=== PATIENT | male | born 1950 | race Caucasian/White ===

== ENCOUNTER 2017-09-03 11:19 | Emergency (ER) | payer BC ==
[~2017-09-03] VITALS: Ht 170.2 cm; Wt 105.1 kg
[~2017-09-03 11:19] MED LIST: ABL/15 PO; BENZ-89 PO; DIVA500T3 PO; DPKSR/500 PO; KLN1X PO; LEVO75TA5 PO; ZLF/100 PO
[2017-09-03 11:20] VITALS: TEMP 36.6; O2SAT 93; Ht 170.2 cm; Wt 105.1 kg
[2017-09-03] MEDS ORDERED: CHOL1000 PO (11:42)
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
[2017-09-03] MEDS ORDERED: OXYC-737 PO (12:09)
--- NOTE | 2017-09-03 12:14 | EMERGENCY ROOM VISIT NOTE ---
ED Visit Note First contact with patient: 12:13 The patient was seen and examined with Maria Dolores Painting PA-C. I agree with the history, physical and findings. Please see the note for disposition and details.
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
--- NOTE | 2017-09-03 12:44 | DIAGNOSTIC IMAGING REPORT ---
CHEST ONE VIEW PORTABLE CLINICAL HISTORY: Hypoxia COMPARISON STUDY: 05/02/2013 FINDINGS: The heart is the upper limits of normal in size. There is no failure. There is no lobar consolidation. There are no pleural effusions. Slightly prominent right basilar markings are likely atelectatic.[ IMPRESSION: No active disease in the chest. Electronically signed by: Rivera Steve M.D. 09/03/2017 12:43 PM Dictated Date/Time: 09/03/2017 12:43 PM
[2017-09-03 12:54] LABS: BASO % 0.2 %; BASO ABS # 0.01 K/uL (0-0.2); EOS % 0.8 %; EOS ABS # 0.05 K/uL (0-0.5); HEMATOCRIT 47.5 % (42-52); HEMOGLOBIN 16.3 g/dL (14.0-18.0); IG# 0.05 K/uL (0.00-0.02); LYMPH % 19.2 %; LYMPH ABS # 1.18 K/uL (1.2-3.4); MEAN CELL VOLUME 91.9 fL (80-100); MEAN CORPUSCULAR HEMOGLOBIN 31.5 pg (25-34); MEAN CORPUSCULAR HGB CONC 34.3 g/dl (32-36); MEAN PLATELET VOLUME 9.4 fL (7.4-10.4); MONO % 9.6 %; MONO ABS # 0.59 K/uL (0.11-0.59); NEUT % 69.4 %; NEUT ABS # 4.28 K/uL (1.4-6.5); PLATELET COUNT 235 K/uL (130-400); RED CELL DISTRIBUTION WIDTH CV 13.8 % (11.5-14.5); RED CELL DISTRIBUTION WIDTH SD 45.9 fL (36.4-46.3); WHITE BLOOD COUNT 6.16 K/uL (4.8-10.8)
[2017-09-03] MEDS ORDERED: OPTIRAY 320 IV PRN (13:00)
[2017-09-03 13:16] LABS: CREATININE 1.38 mg/dl (0.60-1.40)
[2017-09-03 13:17] LABS: ALBUMIN 3.3 gm/dl (3.4-5.0); CALCIUM 8.6 mg/dl (8.5-10.1); POTASSIUM 4.7 mmol/L (3.5-5.1); TOTAL PROTEIN 7.4 gm/dl (6.4-8.2)
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
[2017-09-03] MEDS ORDERED: OXYCODONE HCL IR 5 MG TAB (IMMEDIATE RELEASE) PO STA (15:26)
[2017-09-03 16:42] VITALS: BP 166/93; PULSE 88; O2SAT 94
[2017-09-04] MEDS ORDERED: CHOL1000 PO (00:43)
[2017-09-04] MEDS ORDERED: BENZ-89 PO (00:43)
[2017-09-04] MEDS ORDERED: NRN100 PO (00:43)
[2017-09-04] MEDS ORDERED: ZLF/100 PO (00:43)
[2017-09-04] MEDS ORDERED: ATOR-22 PO (00:43)
== END 2017-09-03 16:43 | disposition home or self-care (01) ==
LOC: EDBD 11:19 → C.EDD 11:20
DX: S82.122A Displaced fracture of lateral condyle of left tibia, initial encounter for closed fracture (principal); S50.312A Abrasion of left elbow, initial encounter; V03.10XA Pedestrian on foot injured in collision with car, pick-up truck or van in traffic accident, initial encounter; I10 Essential (primary) hypertension; F31.9 Bipolar disorder, unspecified; E03.9 Hypothyroidism, unspecified; Z90.49 Acquired absence of other specified parts of digestive tract; Z81.8 Family history of other mental and behavioral disorders; Z83.3 Family history of diabetes mellitus; Z82.49 Family history of ischemic heart disease and other diseases of the circulatory system; Z79.899 Other long term (current) drug therapy

== ENCOUNTER 2017-09-03 21:41 | Inpatient (IN) | payer BC, OTHER ==
[~2017-09-03] VITALS: Ht 170.2 cm; Wt 104.8 kg
[~2017-09-03 21:41] MED LIST changes: +CHOL1000 PO; +OXYC-737 PO
[2017-09-03] MEDS ORDERED: ONDANSETRON INJ 2 MG/ML 2 ML VIAL IV STA (21:52)
[2017-09-03] MEDS ORDERED: SODIUM CHLORIDE 0.9% 1000ML 1,000 ML IV ONE (22:00)
[2017-09-03] MEDS ORDERED: MoRPHine SULFATE 4 MG/ML 1 ML CARP\\VIAL IV ONE (22:00)
[2017-09-03] MEDS ORDERED: ACETAMINOPHEN IV 100 ML IV ONE (22:00)
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
[2017-09-03 22:18] LABS: BASO % 0.2 %; BASO ABS # 0.02 K/uL (0-0.2); EOS % 0.9 %; EOS ABS # 0.09 K/uL (0-0.5); HEMATOCRIT 46.6 % (42-52); HEMOGLOBIN 16.1 g/dL (14.0-18.0); IG# 0.02 K/uL (0.00-0.02); LYMPH % 7.9 %; LYMPH ABS # 0.82 K/uL (1.2-3.4); MEAN CELL VOLUME 91.9 fL (80-100); MEAN CORPUSCULAR HEMOGLOBIN 31.8 pg (25-34); MEAN CORPUSCULAR HGB CONC 34.5 g/dl (32-36); MEAN PLATELET VOLUME 9.2 fL (7.4-10.4); MONO % 10.9 %; MONO ABS # 1.14 K/uL (0.11-0.59); NEUT % 79.9 %; NEUT ABS # 8.33 K/uL (1.4-6.5); PLATELET COUNT 237 K/uL (130-400); RED CELL DISTRIBUTION WIDTH CV 13.8 % (11.5-14.5); RED CELL DISTRIBUTION WIDTH SD 46.1 fL (36.4-46.3); WHITE BLOOD COUNT 10.42 K/uL (4.8-10.8)
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
[2017-09-03 22:46] LABS: ALBUMIN 3.4 gm/dl (3.4-5.0); CALCIUM 8.7 mg/dl (8.5-10.1); CREATININE 1.49 mg/dl (0.60-1.40); POTASSIUM 4.4 mmol/L (3.5-5.1); TOTAL PROTEIN 7.5 gm/dl (6.4-8.2)
[2017-09-03] MEDS ORDERED: ALBUT/IPRATROP 3MG/0.5MG NEB 3 ML VIAL INH ONE (23:00)
[2017-09-04] VITALS (9 sets, daily range): BP systolic 137–146; BP diastolic 81–90; PULSE 76–91; TEMP 36.5–37; O2SAT 92–98; Ht 170.2 cm; Wt 104.8 kg
[2017-09-04] MEDS ORDERED: ZLF/100 PO (00:43)
[2017-09-04] MEDS ORDERED: BENZ-89 PO (00:43)
[2017-09-04] MEDS ORDERED: ATOR-22 PO (00:43)
[2017-09-04] MEDS ORDERED: CHOL1000 PO (00:43)
[2017-09-04] MEDS ORDERED: NRN100 PO (00:43)
[2017-09-04] MEDS ORDERED: NITROGLYCERIN 0.4 MG SL PER TAB CHARGE SL PRN (00:45)
[2017-09-04] MEDS ORDERED: ACETAMINOPHEN 325 MG TAB PO PRN (00:45)
[2017-09-04] MEDS ORDERED: POLYETHYLENE (MIRALAX) 17 GM PACK PO PRN (00:45)
[2017-09-04] MEDS ORDERED: ONDANSETRON INJ 2 MG/ML 2 ML VIAL IV PRN (00:45)
[2017-09-04] MEDS ORDERED: ALUMINUM/MAGNESIUM/SIMETH (MAALOX MAX) 30 ML UDC PO PRN (00:45)
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
[2017-09-04] MEDS ORDERED: GABAPENTIN 100 MG CAP PO ONE (02:15)
[2017-09-04] MEDS ORDERED: SODIUM CHLORIDE 0.9% 1000ML 1,000 ML IV SCH (03:00)
[2017-09-04] MEDS: LEVOTHYROXINE 75 MCG TAB PO SCH (06:15)
[2017-09-04 07:08] LABS: INR 1.1 (0.9-1.1)
[2017-09-04] MEDS: ARIPIprazole TAB 15 MG TAB PO SCH (07:39)
[2017-09-04] MEDS: BENZTROPINE MESYLATE 0.5 MG TAB PO SCH ×2 (07:39→21:05)
[2017-09-04] MEDS: SERTRALINE HCL 100 MG TAB PO SCH (07:39)
[2017-09-04] MEDS: GABAPENTIN 100 MG CAP PO SCH ×3 (07:39→21:05)
[2017-09-04] MEDS: ATORVASTATIN 20 MG TAB PO SCH (07:39)
[2017-09-04] MEDS: DIVALPROEX 500 MG EXTENDED RELEASE TAB PO SCH ×2 (07:40→21:05)
[2017-09-04 07:44] LABS: BASO % 0.4 %; BASO ABS # 0.03 K/uL (0-0.2); EOS % 3.4 %; EOS ABS # 0.29 K/uL (0-0.5); HEMATOCRIT 42.9 % (42-52); HEMOGLOBIN 14.4 g/dL (14.0-18.0); IG# 0.12 K/uL (0.00-0.02); LYMPH % 15.3 %; LYMPH ABS # 1.31 K/uL (1.2-3.4); MEAN CELL VOLUME 92.9 fL (80-100); MEAN CORPUSCULAR HEMOGLOBIN 31.2 pg (25-34); MEAN CORPUSCULAR HGB CONC 33.6 g/dl (32-36); MEAN PLATELET VOLUME 9.8 fL (7.4-10.4); MONO % 14.9 %; MONO ABS # 1.27 K/uL (0.11-0.59); NEUT % 64.6 %; NEUT ABS # 5.53 K/uL (1.4-6.5); PLATELET COUNT 199 K/uL (130-400); RED CELL DISTRIBUTION WIDTH CV 14.2 % (11.5-14.5); RED CELL DISTRIBUTION WIDTH SD 47.7 fL (36.4-46.3); WHITE BLOOD COUNT 8.55 K/uL (4.8-10.8)
[2017-09-04] MEDS: OXYCODONE/ACETAMINOPHEN 5-325 TAB PO PRN ×2 (07:53→18:02)
[2017-09-04 08:00] LABS: CALCIUM 6.3 mg/dl (8.5-10.1); CREATININE 1.12 mg/dl (0.60-1.40); POTASSIUM 3.6 mmol/L (3.5-5.1)
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
[2017-09-04] MEDS: ENOXAPARIN 40 MG/0.4 ML SYR SC SCH (09:08)
--- NOTE | 2017-09-04 10:45 | Progress Note ---
Medicine Progress Note Date & Time of Visit: Sep 04, 2017 at 10:45. Subjective CC: Follow-up visit for hypoxia and left knee injury. HPI: Denies CP, cough, or SOB. O2 sats OK on NC. Intermittent left knee pain; some relief with Percocet. ROS: General- no fever, no chills Resp- as noted above in HPI Cardiac- as noted above in HPI GI- no nausea, no vomiting, no diarrhea, no constipation - no dysuria, no difficulty voiding . Objective Last 8 Hrs Date Time Temp Pulse Resp B/P (MAP) Pulse Ox O2 Delivery O2 Flow Rate FiO2 09/04/17 08:00 Nasal Cannula 6.0 09/04/17 08:00 96 Nasal Cannula 6.0 09/04/17 07:12 36.8 82 18 137/88 (104) 96 6.0 09/04/17 04:09 36.8 87 18 138/90 (106) 94 Nasal Cannula 6.0 09/04/17 03:18 36.7 91 22 142/82 92 Nasal Cannula 6.0 Physical Exam: General- lying in bed; no distress Lungs- clear to auscultation; no respiratory distress Cardiovascular- RRR; no murmur; no gallop; no JVD; no pretibial edema Abdomen- + bowel sounds, soft, nontender Extremities- no cyanosis; no calf tenderness; left knee wrapped with elastic bandage Neuro- alert, oriented Skin- warm & dry . Laboratory Results: Last 24 Hours Test 09/03/17 22:06 09/03/17 22:14 09/04/17 06:50 09/04/17 08:00 White Blood Count 10.42 K/uL 8.55 K/uL Red Blood Count 5.07 M/uL 4.62 M/uL Hemoglobin 16.1 g/dL 14.4 g/dL Hematocrit 46.6 % 42.9 % Mean Corpuscular Volume 91.9 fL 92.9 fL Mean Corpuscular Hemoglobin 31.8 pg 31.2 pg Mean Corpuscular Hemoglobin Concent 34.5 g/dl 33.6 g/dl Platelet Count 237 K/uL 199 K/uL Mean Platelet Volume 9.2 fL 9.8 fL Neutrophils (%) (Auto) 79.9 % 64.6 % Lymphocytes (%) (Auto) 7.9 % 15.3 % Monocytes (%) (Auto) 10.9 % 14.9 % Eosinophils (%) (Auto) 0.9 % 3.4 % Basophils (%) (Auto) 0.2 % 0.4 % Neutrophils # (Auto) 8.33 K/uL 5.53 K/uL Lymphocytes # (Auto) 0.82 K/uL 1.31 K/uL Monocytes # (Auto) 1.14 K/uL 1.27 K/uL Eosinophils # (Auto) 0.09 K/uL 0.29 K/uL Basophils # (Auto) 0.02 K/uL 0.03 K/uL RDW Standard Deviation 46.1 fL 47.7 fL RDW Coefficient of Variation 13.8 % 14.2 % Immature Granulocyte % (Auto) 0.2 % 1.4 % Immature Granulocyte # (Auto) 0.02 K/uL 0.12 K/uL Sodium Level 144 mmol/L 145 mmol/L Potassium Level 4.4 mmol/L 3.6 mmol/L Chloride Level 112 mmol/L 117 mmol/L Carbon Dioxide Level 24 mmol/L 21 mmol/L Anion Gap 8.0 mmol/L 7.0 mmol/L Blood Urea Nitrogen 22 mg/dl 18 mg/dl Creatinine 1.49 mg/dl 1.12 mg/dl Est Creatinine Clear Calc Drug Dose 56.5 ml/min 74.5 ml/min Estimated GFR () 55.9 78.9 Estimated GFR (Non- 48.2 68.1 BUN/Creatinine Ratio 14.7 16.1 Random Glucose 112 mg/dl 91 mg/dl Calcium Level 8.7 mg/dl 6.3 mg/dl Total Bilirubin 0.5 mg/dl Aspartate Amino Transf (AST/SGOT) 33 U/L Alanine Aminotransferase (ALT/SGPT) 40 U/L Alkaline Phosphatase 121 U/L Total Protein 7.5 gm/dl Albumin 3.4 gm/dl Globulin 4.1 gm/dl Albumin/Globulin Ratio 0.8 Bedside Troponin I < 0.030 ng/ml Prothrombin Time 11.4 SECONDS Prothromb Time International Ratio 1.1 Arterial Blood pH 7.39 Arterial Blood Partial Pressure CO2 42 mmHg Arterial Blood Partial Pressure O2 122 mm/Hg Arterial Blood HCO3 25 mmol/L Arterial Blood Oxygen Saturation 98.5 % Arterial Blood Base Excess 0.2 mEq/L Arterial Blood Gas Delivery 7 LITERS Gopal Test POS Assessment & Plan HYPOXIA O2 saturation 81% in ED. No chest wall injury. No apparent rib fractures, pneumothorax, pulmonary contusion, pneumonia, or pulmonary embolism per CT chest with contrast performed earlier. Hypoxia probably secondary to analgesics. Incentive spirometry. Wean narcotics as tolerated. Wean O2 as tolerated. FRACTURE LEFT TIBIAL PLATEAU Consult Ortho. PT / OT evals after Ortho input. CKD III Avoid NSAID's if possible. Follow. HYPOTHYROIDISM Continue levothyroxine. VTE PROPHYLAXIS SQ enoxaparin. DISPOSITION To be determined. May need skilled care or rehab. Family Medicine follow-up with Dr. Xavier. . Current Inpatient Medications: Current Inpatient Medications Medications (Trade) Dose Ordered Sig/Kat Route Start Time Stop Time Status Last Admin Dose Admin Enoxaparin Sodium (Lovenox Inj) 40 mg Q24H SC 09/04/17 09:00 10/04/17 08:59 09/04/17 09:08 40 MG Acetaminophen (Tylenol Tab) 650 mg Q4H PRN PO 09/04/17 00:45 10/04/17 00:44 Al Hydrox/Mg Hydrox/Simethicone (Maalox Max Susp) 15 ml Q4H PRN PO 09/04/17 00:45 10/04/17 00:44 Ondansetron HCl (Zofran Inj) 4 mg Q6H PRN IV 09/04/17 00:45 10/04/17 00:44 Nitroglycerin (Nitrostat Tab) 0.4 mg UD PRN SL 09/04/17 00:45 10/04/17 00:44 Polyethylene (Miralax Powder Packet) 17 gm DAILY PRN PO 09/04/17 00:45 10/04/17 00:44 Aripiprazole (Abilify Tab) 15 mg DAILY PO 09/04/17 09:00 10/04/17 08:59 09/04/17 07:39 15 MG Divalproex Sodium (Depakote Extended Rel Tab) 1,500 mg HS PO 09/04/17 21:00 10/04/17 20:59 Divalproex Sodium (Depakote Extended Rel Tab) 500 mg QAM PO 09/04/17 09:00 10/04/17 08:59 09/04/17 07:40 500 MG Levothyroxine Sodium (Synthroid Tab) 75 mcg DAILYBB PO 09/04/17 06:30 10/04/17 06:59 09/04/17 06:15 75 MCG Oxycodone/ Acetaminophen (Percocet 5-325mg Tab) 1 tab Q4H PRN PO 09/04/17 00:45 09/18/17 00:44 09/04/17 07:53 1 TAB Atorvastatin Calcium (Lipitor Tab) 20 mg DAILY PO 09/04/17 09:00 10/04/17 08:59 09/04/17 07:39 20 MG Benztropine Mesylate (Cogentin Tab) 0.5 mg BID PO 09/04/17 09:00 10/04/17 08:59 09/04/17 07:39 0.5 MG Cholecalciferol (Vitamin D Tab) 1,000 inter.unit HS PO 09/04/17 21:00 10/04/17 20:59 Gabapentin (Neurontin Cap) 200 mg TID PO 09/04/17 09:00 10/04/17 08:59 09/04/17 07:39 200 MG Sertraline HCl (Zoloft Tab) 200 mg DAILY PO 09/04/17 09:00 10/04/17 08:59 09/04/17 07:39 200 MG
[2017-09-04] MEDS: CHOLECALCIFEROL 1000 INTER.UNIT TAB PO SCH (21:05)
[2017-09-04] MEDS: ACETAMINOPHEN 500 MG TAB PO SCH (21:57)
[2017-09-05] VITALS (10 sets, daily range): BP systolic 129–157; BP diastolic 79–90; PULSE 72–81; TEMP 36.3–36.8; O2SAT 91–95
[2017-09-05] MEDS: OXYCODONE HCL IR 5 MG TAB (IMMEDIATE RELEASE) PO PRN (02:06)
[2017-09-05] MEDS: LEVOTHYROXINE 75 MCG TAB PO SCH (05:17)
[2017-09-05] MEDS: ACETAMINOPHEN 500 MG TAB PO SCH ×3 (05:17→21:52)
[2017-09-05 05:52] LABS: BASO % 0.1 %; BASO ABS # 0.01 K/uL (0-0.2); EOS % 3.7 %; EOS ABS # 0.25 K/uL (0-0.5); HEMOGLOBIN 14.8 g/dL (14.0-18.0); IG# 0.01 K/uL (0.00-0.02); LYMPH % 15.5 %; LYMPH ABS # 1.05 K/uL (1.2-3.4); MEAN CELL VOLUME 91.7 fL (80-100); MEAN CORPUSCULAR HEMOGLOBIN 31.6 pg (25-34); MEAN CORPUSCULAR HGB CONC 34.4 g/dl (32-36); MONO % 12.3 %; MONO ABS # 0.83 K/uL (0.11-0.59); NEUT % 68.3 %; NEUT ABS # 4.61 K/uL (1.4-6.5); PLATELET COUNT 177 K/uL (130-400); RED CELL DISTRIBUTION WIDTH CV 13.7 % (11.5-14.5); RED CELL DISTRIBUTION WIDTH SD 45.7 fL (36.4-46.3); WHITE BLOOD COUNT 6.76 K/uL (4.8-10.8)
[2017-09-05 06:29] LABS: CALCIUM 8.3 mg/dl (8.5-10.1); CREATININE 1.37 mg/dl (0.60-1.40); POTASSIUM 4.1 mmol/L (3.5-5.1)
[2017-09-05] MEDS: ENOXAPARIN 40 MG/0.4 ML SYR SC SCH (07:50)
[2017-09-05] MEDS: DIVALPROEX 500 MG EXTENDED RELEASE TAB PO SCH ×2 (07:51→20:24)
[2017-09-05] MEDS: SERTRALINE HCL 100 MG TAB PO SCH (07:51)
[2017-09-05] MEDS: BENZTROPINE MESYLATE 0.5 MG TAB PO SCH ×2 (07:51→20:26)
[2017-09-05] MEDS: ARIPIprazole TAB 15 MG TAB PO SCH (07:51)
[2017-09-05] MEDS: ATORVASTATIN 20 MG TAB PO SCH (07:51)
[2017-09-05] MEDS: GABAPENTIN 100 MG CAP PO SCH ×3 (07:51→20:25)
[2017-09-05] MEDS ORDERED: COUGH DROP (SUGAR FREE) LOZ 24 LOZ/1 BOX LOZ ONE (07:55)
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
--- NOTE | 2017-09-05 13:13 | Consultant Recommendations ---
Process Mechanic Recommendations Date of Service Sep 05, 2017. Process Mechanic Recommendations Ice to left knee Elevate left lower extremity above heart to relieve pain/swelling. NON WEIGHT BEARING LEFT LOWER EXTREMITY X 12 WEEKS Use walker to assist with ambulation. Hinged Range of motion brace left knee on at all times. Able to start Range of motion in left knee with brace on as tolerated Keep brace locked in extension when ambulating Keep bulky dressing on left knee. Follow up with Dr. Dennis on 09/14/17 at 9:15 a.m. Please call [phone] with any questions or concerns.
--- NOTE | 2017-09-05 13:34 | Progress Note ---
Progress Note Date of Service Sep 05, 2017. Progress Note Patient seen, doing well, resting in bed. Left leg perla/splint removed. Applied bulky Cardenas dressing/hinged ROM left leg. Patient tolerated well Continue NWB LLE Ice to left knee as needed for pain/swelling. Elevate left leg as needed for pain/swelling. Keep brace locked in extension when in bed/ambulating, may unlock brace to gradually work on and increase ROM left knee to 90 deg. Follow up with Dr. Dennis as scheduled.
[2017-09-05] MEDS: CHOLECALCIFEROL 1000 INTER.UNIT TAB PO SCH (20:25)
--- NOTE | 2017-09-05 21:18 | Progress Note ---
Medicine Progress Note Date & Time of Visit: Sep 05, 2017 at 14:40 . Subjective CC: Follow-up visit for hypoxia and left knee injury. HPI: NC flow rate decreased to 2 LPM. No cough or SOB. Less knee pain. ROS: General- no fever, no chills Resp- as noted above in HPI Cardiac- no chest pain GI- no nausea, no vomiting, no diarrhea, no constipation - no dysuria, no difficulty voiding . Objective Last 8 Hrs Date Time Temp Pulse Resp B/P (MAP) Pulse Ox O2 Delivery O2 Flow Rate FiO2 09/05/17 16:07 93 Nasal Cannula 2.0 09/05/17 14:52 36.7 78 18 137/84 (101) 93 2.0 09/05/17 14:29 94 Nasal Cannula 2.0 Physical Exam: General- lying in bed; no distress Lungs- clear to auscultation; no respiratory distress Cardiovascular- RRR; no murmur; no gallop; no JVD; no pretibial edema Abdomen- + bowel sounds, soft, nontender Extremities- no cyanosis; no calf tenderness; left knee brace applied Neuro- alert, oriented Skin- warm & dry . Laboratory Results: Last 24 Hours Test 09/05/17 05:40 White Blood Count 6.76 K/uL Red Blood Count 4.69 M/uL Hemoglobin 14.8 g/dL Hematocrit 43.0 % Mean Corpuscular Volume 91.7 fL Mean Corpuscular Hemoglobin 31.6 pg Mean Corpuscular Hemoglobin Concent 34.4 g/dl Platelet Count 177 K/uL Mean Platelet Volume 9.0 fL Neutrophils (%) (Auto) 68.3 % Lymphocytes (%) (Auto) 15.5 % Monocytes (%) (Auto) 12.3 % Eosinophils (%) (Auto) 3.7 % Basophils (%) (Auto) 0.1 % Neutrophils # (Auto) 4.61 K/uL Lymphocytes # (Auto) 1.05 K/uL Monocytes # (Auto) 0.83 K/uL Eosinophils # (Auto) 0.25 K/uL Basophils # (Auto) 0.01 K/uL RDW Standard Deviation 45.7 fL RDW Coefficient of Variation 13.7 % Immature Granulocyte % (Auto) 0.1 % Immature Granulocyte # (Auto) 0.01 K/uL Sodium Level 141 mmol/L Potassium Level 4.1 mmol/L Chloride Level 109 mmol/L Carbon Dioxide Level 25 mmol/L Anion Gap 7.0 mmol/L Blood Urea Nitrogen 17 mg/dl Creatinine 1.37 mg/dl Est Creatinine Clear Calc Drug Dose 60.9 ml/min Estimated GFR () 61.9 Estimated GFR (Non- 53.4 BUN/Creatinine Ratio 12.1 Random Glucose 104 mg/dl Calcium Level 8.3 mg/dl Magnesium Level 2.0 mg/dl Assessment & Plan HYPOXIA O2 saturation 81% in ED. No chest wall injury. No apparent rib fractures, pneumothorax, pulmonary contusion, pneumonia, or pulmonary embolism per CT chest with contrast performed earlier. Hypoxia probably secondary to analgesics. Incentive spirometry. Wean narcotics as tolerated. Wean O2 as tolerated. FRACTURE LEFT TIBIAL PLATEAU Consult Ortho consulted. Knee brace, non-weightbearing LLE recommended. PT / OT evals. CKD III Serum creatinine day of admission 1.49. Avoid NSAID's if possible. Follow. HYPOTHYROIDISM Continue levothyroxine. VTE PROPHYLAXIS SQ enoxaparin. DISPOSITION To be determined. May need skilled care or rehab. Family Medicine follow-up with Dr. Xavier. . Current Inpatient Medications: Current Inpatient Medications Medications (Trade) Dose Ordered Sig/Kat Route Start Time Stop Time Status Last Admin Dose Admin Enoxaparin Sodium (Lovenox Inj) 40 mg Q24H SC 09/04/17 09:00 10/04/17 08:59 09/05/17 07:50 40 MG Acetaminophen (Tylenol Tab) 650 mg Q4H PRN PO 09/04/17 00:45 10/04/17 00:44 Future Hold Al Hydrox/Mg Hydrox/Simethicone (Maalox Max Susp) 15 ml Q4H PRN PO 09/04/17 00:45 10/04/17 00:44 Ondansetron HCl (Zofran Inj) 4 mg Q6H PRN IV 09/04/17 00:45 10/04/17 00:44 Nitroglycerin (Nitrostat Tab) 0.4 mg UD PRN SL 09/04/17 00:45 10/04/17 00:44 Polyethylene (Miralax Powder Packet) 17 gm DAILY PRN PO 09/04/17 00:45 10/04/17 00:44 Aripiprazole (Abilify Tab) 15 mg DAILY PO 09/04/17 09:00 10/04/17 08:59 09/05/17 07:51 15 MG Divalproex Sodium (Depakote Extended Rel Tab) 1,500 mg HS PO 09/04/17 21:00 10/04/17 20:59 09/05/17 20:24 1,500 MG Divalproex Sodium (Depakote Extended Rel Tab) 500 mg QAM PO 09/04/17 09:00 10/04/17 08:59 09/05/17 07:51 500 MG Levothyroxine Sodium (Synthroid Tab) 75 mcg DAILYBB PO 09/04/17 06:30 10/04/17 06:59 09/05/17 05:17 75 MCG Atorvastatin Calcium (Lipitor Tab) 20 mg DAILY PO 09/04/17 09:00 10/04/17 08:59 09/05/17 07:51 20 MG Benztropine Mesylate (Cogentin Tab) 0.5 mg BID PO 09/04/17 09:00 10/04/17 08:59 09/05/17 20:26 0.5 MG Cholecalciferol (Vitamin D Tab) 1,000 inter.unit HS PO 09/04/17 21:00 10/04/17 20:59 09/05/17 20:25 1,000 INTER.UNIT Gabapentin (Neurontin Cap) 200 mg TID PO 09/04/17 09:00 10/04/17 08:59 09/05/17 20:25 200 MG Sertraline HCl (Zoloft Tab) 200 mg DAILY PO 09/04/17 09:00 10/04/17 08:59 09/05/17 07:51 200 MG Acetaminophen (Tylenol Tab) 1,000 mg Q8 PO 09/04/17 22:00 10/04/17 21:59 09/05/17 13:54 1,000 MG Oxycodone HCl (Roxicodone Immediate Rel Tab) 5 mg Q6H PRN PO 09/04/17 19:15 09/18/17 19:14 09/05/17 02:06 5 MG
[2017-09-06] VITALS (10 sets, daily range): BP systolic 113–147; BP diastolic 77–91; PULSE 77–89; TEMP 36.6–36.9; O2SAT 86–95
[2017-09-06] MEDS: ACETAMINOPHEN 500 MG TAB PO SCH ×3 (06:09→21:15)
[2017-09-06] MEDS: LEVOTHYROXINE 75 MCG TAB PO SCH (06:09)
[2017-09-06] MEDS: SERTRALINE HCL 100 MG TAB PO SCH (07:39)
[2017-09-06] MEDS: DIVALPROEX 500 MG EXTENDED RELEASE TAB PO SCH ×2 (07:40→21:14)
[2017-09-06] MEDS: ARIPIprazole TAB 15 MG TAB PO SCH (07:40)
[2017-09-06] MEDS: BENZTROPINE MESYLATE 0.5 MG TAB PO SCH ×2 (07:40→19:44)
[2017-09-06] MEDS: GABAPENTIN 100 MG CAP PO SCH ×3 (07:40→19:45)
[2017-09-06] MEDS: ATORVASTATIN 20 MG TAB PO SCH (07:40)
[2017-09-06] MEDS: ENOXAPARIN 40 MG/0.4 ML SYR SC SCH (07:41)
--- NOTE | 2017-09-06 09:16 | Orthopedic Progress Note ---
Orthopedic Progress Note Date of Service Sep 06, 2017. Subjective Reports: feeling well Additional Notes: Patient a little concerned on how he's going to stay NWB for 12 weeks. Using walker to assist with ambulation. Tolerating hinged ROM brace. Objective calves soft nontender, N/V intact, dressing C/D/I, A&O x3, toes mobile Brace in place, left foot/leg elevated. Tolerates ankle pumps, dorsiflexion/ plantarflexion 5/5. Date Time Temp Pulse Resp B/P (MAP) Pulse Ox O2 Delivery O2 Flow Rate FiO2 09/06/17 08:00 Nasal Cannula 3.0 09/06/17 07:25 36.9 81 18 139/91 (107) 95 2.0 09/06/17 00:00 Nasal Cannula 2.0 09/05/17 23:01 36.6 77 20 157/90 (112) 93 Room Air 09/05/17 16:07 93 Nasal Cannula 2.0 09/05/17 14:52 36.7 78 18 137/84 (101) 93 2.0 09/05/17 14:29 94 Nasal Cannula 2.0 09/05/17 11:38 36.8 81 20 130/79 (96) 91 09/05/17 10:40 95 Nasal Cannula 2.0 09/05/17 09:38 94 Nasal Cannula 3.0 Assessment & Plan Assessment: Left lateral tibial plateau fracture Plan: NWB LLE with hinged brace and walker assistance NWB LLE x 12 weeks Ice to left knee as tolerated. May unlock brace and attempt gentle flexion of left knee, advance to 90 deg as tolerated. Keep brace locked in extension when OOB. Follow up with Dr. Dennis next week as scheduled. Call [phone] with questions.
--- NOTE | 2017-09-06 20:25 | Progress Note ---
Medicine Progress Note Date & Time of Visit: Sep 06, 2017 at ~ 18:00 . Subjective CC: Follow-up visit for hypoxia and left knee injury. HPI: NC flow rate decreased to 1 LPM. Sats tend to run lower when sleeping. Doing incentive spirometry. No cough or SOB. Less knee pain. ROS: General- no fever, no chills Resp- as noted above in HPI Cardiac- no chest pain GI- no nausea, no vomiting, no diarrhea, no constipation . Objective Last 8 Hrs Date Time Temp Pulse Resp B/P (MAP) Pulse Ox O2 Delivery O2 Flow Rate FiO2 09/06/17 16:04 36.8 81 18 113/77 (89) 94 09/06/17 16:04 36.9 81 18 147/88 (107) 94 Nasal Cannula 1.0 09/06/17 16:00 94 Nasal Cannula 1.0 09/06/17 13:32 94 Nasal Cannula 1.0 09/06/17 13:28 86 Room Air Physical Exam: General- lying in bed; no distress Lungs- clear to auscultation; no respiratory distress Cardiovascular- RRR; no murmur; no gallop; no JVD; no pretibial edema Abdomen- + bowel sounds, soft, nontender Extremities- no cyanosis; no calf tenderness; left knee brace applied Neuro- alert, oriented Skin- warm & dry . Assessment & Plan HYPOXIA O2 saturation 81% in ED. No chest wall injury. No apparent rib fractures, pneumothorax, pulmonary contusion, pneumonia, or pulmonary embolism per CT chest with contrast performed earlier. Hypoxia probably secondary to analgesics. Incentive spirometry. Wean narcotics as tolerated. Wean O2 as tolerated. May have nocturnal hypoxia. Check nocturnal pulse oximetry. FRACTURE LEFT TIBIAL PLATEAU Consult Ortho consulted. Knee brace, non-weightbearing LLE recommended. PT / OT evals. CKD III Serum creatinine day of admission 1.49. Avoid NSAID's if possible. Follow. HYPOTHYROIDISM Continue levothyroxine. VTE PROPHYLAXIS SQ enoxaparin. DISPOSITION To be determined. May need skilled care or rehab. Family Medicine follow-up with Dr. Xavier. . Current Inpatient Medications: Current Inpatient Medications Medications (Trade) Dose Ordered Sig/Kat Route Start Time Stop Time Status Last Admin Dose Admin Enoxaparin Sodium (Lovenox Inj) 40 mg Q24H SC 09/04/17 09:00 10/04/17 08:59 09/06/17 07:41 40 MG Acetaminophen (Tylenol Tab) 650 mg Q4H PRN PO 09/04/17 00:45 10/04/17 00:44 Future Hold Al Hydrox/Mg Hydrox/Simethicone (Maalox Max Susp) 15 ml Q4H PRN PO 09/04/17 00:45 10/04/17 00:44 Ondansetron HCl (Zofran Inj) 4 mg Q6H PRN IV 09/04/17 00:45 10/04/17 00:44 Nitroglycerin (Nitrostat Tab) 0.4 mg UD PRN SL 09/04/17 00:45 10/04/17 00:44 Polyethylene (Miralax Powder Packet) 17 gm DAILY PRN PO 09/04/17 00:45 10/04/17 00:44 Aripiprazole (Abilify Tab) 15 mg DAILY PO 09/04/17 09:00 10/04/17 08:59 09/06/17 07:40 15 MG Divalproex Sodium (Depakote Extended Rel Tab) 1,500 mg HS PO 09/04/17 21:00 10/04/17 20:59 09/05/17 20:24 1,500 MG Divalproex Sodium (Depakote Extended Rel Tab) 500 mg QAM PO 09/04/17 09:00 10/04/17 08:59 09/06/17 07:40 500 MG Levothyroxine Sodium (Synthroid Tab) 75 mcg DAILYBB PO 09/04/17 06:30 10/04/17 06:59 09/06/17 06:09 75 MCG Atorvastatin Calcium (Lipitor Tab) 20 mg DAILY PO 09/04/17 09:00 10/04/17 08:59 09/06/17 07:40 20 MG Benztropine Mesylate (Cogentin Tab) 0.5 mg BID PO 09/04/17 09:00 10/04/17 08:59 09/06/17 19:44 0.5 MG Cholecalciferol (Vitamin D Tab) 1,000 inter.unit HS PO 09/04/17 21:00 10/04/17 20:59 09/05/17 20:25 1,000 INTER.UNIT Gabapentin (Neurontin Cap) 200 mg TID PO 09/04/17 09:00 10/04/17 08:59 09/06/17 19:45 200 MG Sertraline HCl (Zoloft Tab) 200 mg DAILY PO 09/04/17 09:00 10/04/17 08:59 09/06/17 07:39 200 MG Acetaminophen (Tylenol Tab) 1,000 mg Q8 PO 09/04/17 22:00 10/04/17 21:59 09/06/17 13:29 1,000 MG Oxycodone HCl (Roxicodone Immediate Rel Tab) 5 mg Q6H PRN PO 09/04/17 19:15 09/18/17 19:14 09/05/17 02:06 5 MG
[2017-09-06] MEDS: CHOLECALCIFEROL 1000 INTER.UNIT TAB PO SCH (21:15)
[2017-09-07] VITALS (8 sets, daily range): BP systolic 122–134; BP diastolic 82–86; PULSE 71–84; TEMP 36.7–36.8; O2SAT 90–96
[2017-09-07 06:01] LABS: BASO % 0.2 %; BASO ABS # 0.01 K/uL (0-0.2); EOS % 3.4 %; HEMATOCRIT 46.4 % (42-52); HEMOGLOBIN 15.8 g/dL (14.0-18.0); IG# 0.02 K/uL (0.00-0.02); LYMPH % 19.1 %; LYMPH ABS # 1.14 K/uL (1.2-3.4); MEAN CELL VOLUME 92.2 fL (80-100); MEAN CORPUSCULAR HEMOGLOBIN 31.4 pg (25-34); MEAN CORPUSCULAR HGB CONC 34.1 g/dl (32-36); MEAN PLATELET VOLUME 9.4 fL (7.4-10.4); MONO % 13.1 %; MONO ABS # 0.78 K/uL (0.11-0.59); NEUT % 63.9 %; NEUT ABS # 3.81 K/uL (1.4-6.5); PLATELET COUNT 216 K/uL (130-400); RED CELL DISTRIBUTION WIDTH CV 13.8 % (11.5-14.5); RED CELL DISTRIBUTION WIDTH SD 46.3 fL (36.4-46.3); WHITE BLOOD COUNT 5.96 K/uL (4.8-10.8)
[2017-09-07] MEDS: LEVOTHYROXINE 75 MCG TAB PO SCH (06:13)
[2017-09-07] MEDS: ACETAMINOPHEN 500 MG TAB PO SCH ×3 (06:13→19:56)
[2017-09-07 06:26] LABS: CALCIUM 8.9 mg/dl (8.5-10.1); CREATININE 1.36 mg/dl (0.60-1.40); POTASSIUM 4.1 mmol/L (3.5-5.1)
[2017-09-07] MEDS: SERTRALINE HCL 100 MG TAB PO SCH (08:02)
[2017-09-07] MEDS: ATORVASTATIN 20 MG TAB PO SCH (08:04)
[2017-09-07] MEDS: GABAPENTIN 100 MG CAP PO SCH ×3 (08:04→19:55)
[2017-09-07] MEDS: DIVALPROEX 500 MG EXTENDED RELEASE TAB PO SCH ×2 (08:05→19:55)
[2017-09-07] MEDS: BENZTROPINE MESYLATE 0.5 MG TAB PO SCH ×2 (08:05→19:55)
[2017-09-07] MEDS: ARIPIprazole TAB 15 MG TAB PO SCH (08:05)
[2017-09-07] MEDS: ENOXAPARIN 40 MG/0.4 ML SYR SC SCH (08:06)
--- NOTE | 2017-09-07 08:27 | Orthopedic Progress Note ---
Orthopedic Progress Note Date of Service Sep 07, 2017. 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 Says he sleeps comfortably throughout the night. Brace fitting without complaints. Patient aware of restrictions and limitations to left LE. Objective N/V intact, splint C/D/I, capillary refill less than 2 sec., dressing C/D/I, A& O x3, toes mobile Date Time Temp Pulse Resp B/P (MAP) Pulse Ox O2 Delivery O2 Flow Rate FiO2 09/07/17 07:35 36.8 71 16 130/82 (98) 93 Nasal Cannula 2.0 09/07/17 05:43 84 18 90 Room Air 09/07/17 00:30 Nasal Cannula 2.0 09/06/17 23:10 36.7 77 17 130/86 (101) 93 Nasal Cannula 93.0 09/06/17 20:00 92 Nasal Cannula 1.0 09/06/17 19:10 36.6 78 22 136/87 (103) 90 Nasal Cannula 1.0 09/06/17 16:04 36.8 81 18 113/77 (89) 94 09/06/17 16:04 36.9 81 18 147/88 (107) 94 Nasal Cannula 1.0 09/06/17 16:00 94 Nasal Cannula 1.0 09/06/17 13:32 94 Nasal Cannula 1.0 09/06/17 13:28 86 Room Air 09/06/17 11:31 89 89 09/06/17 10:55 93 Room Air Laboratory Results 24 Hours: Test 09/07/17 05:27 White Blood Count 5.96 K/uL Red Blood Count 5.03 M/uL Hemoglobin 15.8 g/dL Hematocrit 46.4 % Mean Corpuscular Volume 92.2 fL Mean Corpuscular Hemoglobin 31.4 pg Mean Corpuscular Hemoglobin Concent 34.1 g/dl Platelet Count 216 K/uL Mean Platelet Volume 9.4 fL Neutrophils (%) (Auto) 63.9 % Lymphocytes (%) (Auto) 19.1 % Monocytes (%) (Auto) 13.1 % Eosinophils (%) (Auto) 3.4 % Basophils (%) (Auto) 0.2 % Neutrophils # (Auto) 3.81 K/uL Lymphocytes # (Auto) 1.14 K/uL Monocytes # (Auto) 0.78 K/uL Eosinophils # (Auto) 0.20 K/uL Basophils # (Auto) 0.01 K/uL Assessment & Plan Assessment: Left lateral tibial plateau fracture Plan: NWB LLE with hinged brace and walker assistance NWB LLE x 12 weeks Ice to left knee as tolerated. May unlock brace and attempt gentle flexion of left knee, advance to 90 deg as tolerated. Keep brace locked in extension when OOB. Follow up with Dr. Dennis next week as scheduled. Call [phone] with questions. Discharge Planning Discharge Planning: rehab hospital Therapy: Physical Therapy, Occupational Therapy
[2017-09-07] MEDS: IBUPROFEN 200 MG TAB PO PRN (19:03)
[2017-09-07] MEDS: CHOLECALCIFEROL 1000 INTER.UNIT TAB PO SCH (19:55)
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
[2017-09-08] MEDS: LEVOTHYROXINE 75 MCG TAB PO SCH (06:29)
[2017-09-08] MEDS: ACETAMINOPHEN 500 MG TAB PO SCH ×3 (06:29→21:40)
[2017-09-08 06:45] VITALS: BP 152/88; PULSE 72; TEMP 36.5; O2SAT 94
[2017-09-08] MEDS: GABAPENTIN 100 MG CAP PO SCH ×3 (07:46→20:18)
[2017-09-08] MEDS: ARIPIprazole TAB 15 MG TAB PO SCH (07:47)
[2017-09-08] MEDS: IBUPROFEN 200 MG TAB PO PRN (07:47)
[2017-09-08] MEDS: DIVALPROEX 500 MG EXTENDED RELEASE TAB PO SCH ×2 (07:48→20:19)
[2017-09-08] MEDS: SERTRALINE HCL 100 MG TAB PO SCH (07:48)
[2017-09-08] MEDS: BENZTROPINE MESYLATE 0.5 MG TAB PO SCH ×2 (07:48→20:18)
[2017-09-08] MEDS: ATORVASTATIN 20 MG TAB PO SCH (07:48)
[2017-09-08 08:00] VITALS: O2SAT 94
[2017-09-08] MEDS: ENOXAPARIN 40 MG/0.4 ML SYR SC SCH (08:00)
[2017-09-08 09:28] VITALS: O2SAT 94
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
[2017-09-08 15:25] VITALS: BP 137/85; PULSE 85; TEMP 36.5; O2SAT 90
[2017-09-08 17:15] VITALS: O2SAT 96
[2017-09-08] MEDS: CHOLECALCIFEROL 1000 INTER.UNIT TAB PO SCH (20:35)
[2017-09-08 22:55] VITALS: BP 161/96; PULSE 76; TEMP 36.8; O2SAT 94
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
[2017-09-09] MEDS: OXYCODONE HCL IR 5 MG TAB (IMMEDIATE RELEASE) PO PRN (01:21)
[2017-09-09] MEDS: ACETAMINOPHEN 500 MG TAB PO SCH ×3 (06:17→22:00)
[2017-09-09 07:26] VITALS: BP_SYST 135; BP_SYST 90; BP_DIAS 77; PULSE 86; TEMP 36.5; O2SAT 90
[2017-09-09 08:00] VITALS: O2SAT 94
[2017-09-09] MEDS: ARIPIprazole TAB 15 MG TAB PO SCH (08:05)
[2017-09-09] MEDS: LEVOTHYROXINE 75 MCG TAB PO SCH (08:05)
[2017-09-09] MEDS: BENZTROPINE MESYLATE 0.5 MG TAB PO SCH ×2 (08:06→21:32)
[2017-09-09] MEDS: DIVALPROEX 500 MG EXTENDED RELEASE TAB PO SCH ×2 (08:06→21:33)
[2017-09-09] MEDS: GABAPENTIN 100 MG CAP PO SCH ×3 (08:07→21:34)
[2017-09-09] MEDS: ATORVASTATIN 20 MG TAB PO SCH (08:07)
[2017-09-09] MEDS: ENOXAPARIN 40 MG/0.4 ML SYR SC SCH (08:08)
[2017-09-09] MEDS: SERTRALINE HCL 100 MG TAB PO SCH (08:31)
--- NOTE | 2017-09-09 13:32 | PULMONARY FUNCTION TEST ---
PULMONARY FUNCTION/SPIROMETRY INTERPRETATION BASED OFF GOLD CRITERIA SPIROMETRY: Within normal limits. BRONCHODILATOR RESPONSE: No significant response. INTERPRETATION: Normal spirometry.
[2017-09-09 14:51] VITALS: BP 127/86; PULSE 78; TEMP 36.7; O2SAT 91
[2017-09-09] MEDS: CHOLECALCIFEROL 1000 INTER.UNIT TAB PO SCH (21:30)
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
[2017-09-09 23:48] VITALS: BP 135/87; PULSE 68; TEMP 36.7; O2SAT 95
[2017-09-10 00:30] VITALS: O2SAT 94
[2017-09-10] MEDS: LEVOTHYROXINE 75 MCG TAB PO SCH (06:01)
[2017-09-10] MEDS: ACETAMINOPHEN 500 MG TAB PO SCH ×3 (06:22→22:26)
[2017-09-10 06:23] LABS: CREATININE 1.32 mg/dl (0.60-1.40)
[2017-09-10 07:08] VITALS: BP 134/82; PULSE 74; TEMP 36.6; O2SAT 90
[2017-09-10] MEDS: ARIPIprazole TAB 15 MG TAB PO SCH (07:48)
[2017-09-10] MEDS: DIVALPROEX 500 MG EXTENDED RELEASE TAB PO SCH ×2 (07:48→20:56)
[2017-09-10] MEDS: BENZTROPINE MESYLATE 0.5 MG TAB PO SCH ×2 (07:48→20:56)
[2017-09-10] MEDS: GABAPENTIN 100 MG CAP PO SCH ×3 (07:48→20:55)
[2017-09-10] MEDS: ATORVASTATIN 20 MG TAB PO SCH (07:48)
[2017-09-10] MEDS: SERTRALINE HCL 100 MG TAB PO SCH (07:48)
[2017-09-10] MEDS: ENOXAPARIN 40 MG/0.4 ML SYR SC SCH (07:49)
[2017-09-10 14:54] VITALS: BP 134/92; PULSE 82; TEMP 36.6; O2SAT 93
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
[2017-09-10] MEDS: OXYCODONE HCL IR 5 MG TAB (IMMEDIATE RELEASE) PO PRN (20:55)
[2017-09-10] MEDS: CHOLECALCIFEROL 1000 INTER.UNIT TAB PO SCH (20:55)
[2017-09-10 23:20] VITALS: BP 144/90; PULSE 72; TEMP 36.8; O2SAT 97
[2017-09-11] MEDS: ACETAMINOPHEN 500 MG TAB PO SCH ×3 (06:16→21:05)
[2017-09-11] MEDS: LEVOTHYROXINE 75 MCG TAB PO SCH (06:16)
[2017-09-11 07:03] VITALS: BP 134/86; PULSE 81; TEMP 36.4; O2SAT 93
[2017-09-11] MEDS: DIVALPROEX 500 MG EXTENDED RELEASE TAB PO SCH ×2 (08:17→21:06)
[2017-09-11] MEDS: SERTRALINE HCL 100 MG TAB PO SCH (08:17)
[2017-09-11] MEDS: ATORVASTATIN 20 MG TAB PO SCH (08:17)
[2017-09-11] MEDS: GABAPENTIN 100 MG CAP PO SCH ×3 (08:17→21:07)
[2017-09-11] MEDS: ARIPIprazole TAB 15 MG TAB PO SCH (08:17)
[2017-09-11] MEDS: BENZTROPINE MESYLATE 0.5 MG TAB PO SCH ×2 (08:17→21:05)
[2017-09-11] MEDS: ENOXAPARIN 40 MG/0.4 ML SYR SC SCH (08:18)
[2017-09-11 15:01] VITALS: BP 143/84; PULSE 83; TEMP 36.5; O2SAT 93
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
[2017-09-11] MEDS: CHOLECALCIFEROL 1000 INTER.UNIT TAB PO SCH (21:05)
[2017-09-11 23:47] VITALS: BP 129/79; PULSE 74; TEMP 36.6; O2SAT 93
[2017-09-12] MEDS: ACETAMINOPHEN 500 MG TAB PO SCH ×3 (05:46→22:19)
[2017-09-12] MEDS: LEVOTHYROXINE 75 MCG TAB PO SCH (05:47)
[2017-09-12] MEDS: ATORVASTATIN 20 MG TAB PO SCH (07:32)
[2017-09-12] MEDS: BENZTROPINE MESYLATE 0.5 MG TAB PO SCH ×2 (07:32→20:42)
[2017-09-12] MEDS: DIVALPROEX 500 MG EXTENDED RELEASE TAB PO SCH ×2 (07:32→20:41)
[2017-09-12] MEDS: ARIPIprazole TAB 15 MG TAB PO SCH (07:32)
[2017-09-12] MEDS: GABAPENTIN 100 MG CAP PO SCH ×3 (07:33→20:40)
[2017-09-12] MEDS: ENOXAPARIN 40 MG/0.4 ML SYR SC SCH (07:33)
[2017-09-12] MEDS: SERTRALINE HCL 100 MG TAB PO SCH (07:33)
[2017-09-12 07:37] VITALS: BP 115/78; PULSE 83; TEMP 36.6; O2SAT 94
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
[2017-09-12 16:11] VITALS: BP 131/88; PULSE 80; TEMP 36.4; O2SAT 94
[2017-09-12] MEDS: CHOLECALCIFEROL 1000 INTER.UNIT TAB PO SCH (20:40)
[2017-09-13] MEDS: OXYCODONE HCL IR 5 MG TAB (IMMEDIATE RELEASE) PO PRN (00:07)
[2017-09-13] MEDS: LEVOTHYROXINE 75 MCG TAB PO SCH (06:23)
[2017-09-13] MEDS: ACETAMINOPHEN 500 MG TAB PO SCH (06:24)
[2017-09-13 06:49] LABS: CREATININE 1.37 mg/dl (0.60-1.40)
[2017-09-13 07:10] VITALS: BP 137/88; PULSE 71; TEMP 36.9; O2SAT 93
[2017-09-13] MEDS: SERTRALINE HCL 100 MG TAB PO SCH (07:45)
[2017-09-13] MEDS: ATORVASTATIN 20 MG TAB PO SCH (07:45)
[2017-09-13] MEDS: ENOXAPARIN 40 MG/0.4 ML SYR SC SCH (07:45)
[2017-09-13] MEDS: BENZTROPINE MESYLATE 0.5 MG TAB PO SCH (07:45)
[2017-09-13] MEDS: GABAPENTIN 100 MG CAP PO SCH (07:45)
[2017-09-13] MEDS: ARIPIprazole TAB 15 MG TAB PO SCH (07:45)
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
[2017-09-13] MEDS ORDERED: ACET-1047 PO (08:31)
[2017-09-13] MEDS ORDERED: LVNIS40 SC (08:31)
[2017-09-13] MEDS ORDERED: RXC5 PO (08:31)
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
[2017-09-13 08:42] VITALS: BP 137/88; PULSE 71; TEMP 36.9; O2SAT 93
[2017-09-13] MEDS: DIVALPROEX 500 MG EXTENDED RELEASE TAB PO SCH (09:27)
--- NOTE | 2017-09-14 13:53 | PULMONARY FUNCTION TEST ---
Interpretation based on GOLD criteria. SPIROMETRY: Within normal limits. POSTBRONCHODILATOR RESPONSE: No significant response. INTERPRETATION: Normal spirometric data.
--- NOTE | 2017-09-15 07:59 | PULMONARY FUNCTION TEST ---
PULMONARY FUNCTION STUDY/SPIROMETRIC DATA BASED OFF ATS CRITERIA. SPIROMETRY: Mild obstructive ventilatory disease. BRONCHODILATOR RESPONSE: No significant response. INTERPRETATION: Mild obstructive ventilatory disease based off ATS standards, but GOLD criteria suggest spirometry is within normal limits. Clinical correlation is required.
== END 2017-09-13 13:19 | DRG 206 ==
LOC: EDBD 21:41 → C.EDC 21:42 → C.MED 09-04 00:40 → ENRESERV 09-04 01:15 → C.4E 09-06 18:53
PROVIDERS: ADMIT Internal Medicine; ATTEND Internal Medicine
DX: R09.02 Hypoxemia (principal); S82.122A Displaced fracture of lateral condyle of left tibia, initial encounter for closed fracture; F31.81 Bipolar II disorder; T39.95XA Adverse effect of unspecified nonopioid analgesic, antipyretic and antirheumatic, initial encounter; V03.90XA Pedestrian on foot injured in collision with car, pick-up truck or van, unspecified whether traffic or nontraffic accident, initial encounter; I12.9 Hypertensive chronic kidney disease with stage 1 through stage 4 chronic kidney disease, or unspecified chronic kidney disease; E03.9 Hypothyroidism, unspecified; Z83.3 Family history of diabetes mellitus; Z82.49 Family history of ischemic heart disease and other diseases of the circulatory system; G31.84 Mild cognitive impairment of uncertain or unknown etiology; N18.3 Chronic kidney disease, stage 3 (moderate); N25.0 Renal osteodystrophy; Y92.89 Other specified places as the place of occurrence of the external cause

== ENCOUNTER → 2017-09-21 | Outpatient (CLI) | payer BC ==
[~2017-09-21] MED LIST changes: +ACET-1047 PO; +ATOR-22 PO; -KLN1X PO; +LVNIS40 SC; +NRN100 PO; -OXYC-737 PO; +RXC5 PO
[2017-09-21 08:46] LABS: BLOOD UREA NITROGEN 21 mg/dl (7-18); CALCIUM 8.5 mg/dl (8.5-10.1); CARBON DIOXIDE 26 mmol/L (21-32); GLUCOSE 94 mg/dl (70-99); POTASSIUM 4.2 mmol/L (3.5-5.1); SODIUM 141 mmol/L (136-145)
[2017-09-21 10:17] LABS: HEMOGLOBIN A1C 5.6 % (4.5-5.6)
== END ==
LOC: C.LABCC 07:56
PROVIDERS: ATTEND Internal Medicine
DX: N18.3 Chronic kidney disease, stage 3 (moderate) (principal); R73.9 Hyperglycemia, unspecified

== ENCOUNTER 2019-02-16 06:29 | Inpatient (IN) ==
[2019-02-16 06:58] LABS: Basophils # (auto) 0.01 K/uL (0-0.2); Basophils % (auto) 0.2 %; Eosinophils # (auto) 0.12 K/uL (0-0.5); Eosinophils % (auto) 2.3 %; Hematocrit (blood only) 46.8 % (42-52); Hemoglobin 16.1 g/dL (14.0-18.0); Immature Granulocytes # (auto) 0.02 K/uL (0.00-0.02); Immature Granulocytes % (auto) 0.4 %; Lymphocytes % (auto) 25.2 %; Mean Corpuscular Hemoglobin 32.7 pg (25-34); Mean Corpuscular Hgb Conc 34.4 g/dL (32-36); Mean Corpuscular Volume 95.1 fL (80-100); Mean Platelet Volume 9.5 fL (7.4-10.4); Monocytes # (auto) 0.58 K/uL (0.11-0.59); Monocytes % (auto) 11.2 %; Neutrophils # (auto) 3.13 K/uL (1.4-6.5); Neutrophils % (auto) 60.7 %; Platelet Count 178 K/uL (130-400); RDW Coefficient of Variation 13.9 % (11.5-14.5); RDW Standard Deviation 48.2 fL (36.4-46.3); Red Blood Count 4.92 M/uL (4.7-6.1); White Blood Count 5.16 K/uL (4.8-10.8)
--- NOTE | 2019-02-16 07:08 | Emergency Department Note ---
Entered by Ar Soto acting as a scribe for Daniel Cronin MD History of Present Illness General Chief complaint: Hypertension Stated complaint: HYPERTENSIVE Time Seen by Provider: 02/16/19 06:32 Source: patient History of Present Illness Provider complaint: Hypertension Onset (ago): day(s) 1 Location: chest Pain Consistency: + constant Relieved By: + none Associated symptoms: + chest pain, + cough and + other (LE swelling ); no fever/chills The patient is a 68 year old male who presents to the Emergency Room from [facility] with complaints of constant hypertension that was noticed yesterday. The patient reports that his blood pressure was elevated at his psychiatrist's office yesterday and this morning it was still high. The patient also woke up this morning short of breath. The patient adds that yesterday he noticed increased swelling in his lower extremities. He also has had a cough fo The patient currently denies any chest pain but notes he had an episode of pain a couple days ago that only lasted a couple of seconds. The patient denies any cardiac history. The patient has a history of bipolar and has been taking all of his medications appropriately. He mentioned that his Gabapentin increased from 200 to 300. The patient denies any depressive or manic symptoms. The patient also denies any fever or orthopnea. Home Medications Home Medications Medication Instructions Recorded Confirmed Type acetaminophen 650 mg PO BID PRN 06/24/18 02/16/19 History atorvastatin 20 mg PO QAM 06/24/18 02/16/19 History cholecalciferol (vitamin D3) 1,000 unit PO HS 06/24/18 02/16/19 History [Vitamin D3] levothyroxine 75 mcg PO QAM 06/24/18 02/16/19 History sertraline 200 mg PO QAM 06/24/18 02/16/19 History meloxicam 15 mg tablet 15 mg PO DAILY #30 tab 02/02/19 02/16/19 Rx aripiprazole [Abilifjyoti Maintena] 400 mg IM DIRECTED 02/16/19 02/16/19 History divalproex 1,500 mg PO HS 02/16/19 02/16/19 History divalproex 500 mg PO QAM 02/16/19 02/16/19 History gabapentin 300 mg PO TID 02/16/19 02/16/19 History Allergies Allergy/AdvReac Type Severity Reaction Status Date / Time No Known Allergies Allergy Verified 02/16/19 07:24 Past Med/Surg History Medical History Bipolar disorder CKD (chronic kidney disease), stage III Dizziness (Inactive) History of DVT (deep vein thrombosis) History of electroconvulsive therapy History of traumatic brain injury History of small right tentorial SDH 06/2018 while on Xarelto for a provoked DVT. Repeat CT scan in 07/2018 revealed resolution. Hyperlipidemia Hypothyroidism (Chronic) Hypoxia No pertinent family history Pedal edema (Inactive) Vitiligo (Chronic) Surgical History History of colonoscopy with polypectomy History of esophagogastroduodenoscopy (EGD) Positive H. pylori Status post cholecystectomy (Chronic) Family History Other Unknown family medical history Social History Preferred Language: Afghan Communication Ability: Effective Visual Impairment: No Limitations Hearing Ability: Normal Director Digital Required: No Beliefs That Will Affect Care: None marital status: single Current Living Situation: Personal Care Facility Current Living Situation Comment: [facility] current occupational status: retired current occupation: [employer] for 35.5 yrs Other Information That Helps Us Care for You: No Feels Safe at Home: Yes Safety Concerns: Feels Safe At This Time Smoking Status: Never smoker Hx Alcohol Use: No Hx Substance Use: No Review of Systems See HPI for pertinent positives & negatives. and A total of 10 systems reviewed and were otherwise negative Physical Exam Vital Signs Vital Signs - 24 hr 02/16/19 06:33 02/16/19 06:42 02/16/19 06:51 Temperature 36.3 C L Temperature Source Oral Pulse Rate 84 Pulse Rate [Apical] Pulse Rhythm [Apical] Respiratory Rate 18 Respiratory Rate [Exercises] Respiratory Effort / Characteristics Blood Pressure 174/118 H Blood Pressure [Right Arm] Blood Pressure Mean 136 Blood Pressure Mean [Right Arm] Pulse Oximetry 89 L 93 94 Pulse Oximetry [Exercises] Oxygen Delivery Method Room Air Nasal Cannula Nasal Cannula Oxygen Flow Rate 2 2 Sepsis Recent Fever Within 48 Hours No Sepsis Action Taken by Nursing No Action Required 02/16/19 07:12 02/16/19 07:13 02/16/19 08:00 Temperature Temperature Source Pulse Rate Pulse Rate [Apical] 78 74 Pulse Rhythm [Apical] Regular Regular Respiratory Rate 24 24 Respiratory Rate [Exercises] 26 H Respiratory Effort / Characteristics Spontaneous Short of Breath Spontaneous Blood Pressure Blood Pressure [Right Arm] 172/109 H 160/96 H Blood Pressure Mean Blood Pressure Mean [Right Arm] 130 117 Pulse Oximetry 96 98 Pulse Oximetry [Exercises] 85 L Oxygen Delivery Method Room Air Nasal Cannula Nasal Cannula Oxygen Flow Rate 2 2 Sepsis Recent Fever Within 48 Hours Sepsis Action Taken by Nursing 02/16/19 09:03 02/16/19 09:37 02/16/19 09:38 Temperature Temperature Source Pulse Rate Pulse Rate [Apical] 74 70 75 Pulse Rhythm [Apical] Regular Regular Regular Respiratory Rate 23 25 H 25 H Respiratory Rate [Exercises] Respiratory Effort / Characteristics Spontaneous Spontaneous Short of Breath Spontaneous Short of Breath Blood Pressure Blood Pressure [Right Arm] 153/88 H 185/118 H Blood Pressure Mean Blood Pressure Mean [Right Arm] 109 140 Pulse Oximetry 90 87 L 94 Pulse Oximetry [Exercises] Oxygen Delivery Method Room Air Room Air Nasal Cannula Oxygen Flow Rate 2 Sepsis Recent Fever Within 48 Hours Sepsis Action Taken by Nursing 02/16/19 10:00 Temperature Temperature Source Pulse Rate Pulse Rate [Apical] 78 Pulse Rhythm [Apical] Regular Respiratory Rate 24 Respiratory Rate [Exercises] Respiratory Effort / Characteristics Blood Pressure Blood Pressure [Right Arm] 151/95 H Blood Pressure Mean Blood Pressure Mean [Right Arm] 113 Pulse Oximetry 98 Pulse Oximetry [Exercises] Oxygen Delivery Method Nasal Cannula Oxygen Flow Rate 2 Sepsis Recent Fever Within 48 Hours Sepsis Action Taken by Nursing General: Non-ill appearing middle aged male wearing supplemental oxygen. HEENT: Normal cephalic atraumatic. Pupils are equal round and reactive to light. Extraocular movements are intact. Oropharynx is pink with moist mucous membranes. No swelling of the mouth lips or tongue. Neck: Supple with a midline trachea. No meningeal signs or stiffness, no JVD or bruits. No Stridor. Chest: Clear to auscultation bilaterally. No wheezes or rhonchi. No increased work of breathing. Heart: regular rate and rhythm. Abdomen: Soft nontender, nondistended without rebound guarding or rigidity. Extremities: No cyanosis or clubbing. No calf tenderness or asymmetry. 1+ pitting edema bilaterally. Spine/Back. Non tender to palpation. No CVA tenderness Skin: Good turgor without rashes. Neurologic exam: Cranial nerves two through 12 are intact. Motor and sensation are intact and symmetrical throughout. Course Course 0635: Past medical records reviewed. The patient was evaluated in room B02 by the resident Dr. Estrada, and a complete history and physical examination were performed. I then performed my own assessment. 0752: I reevaluated the patient and updated him on results. 08: Dr. Estrada and I reassessed the patient and he is resting in bed. We updated him on test results obtained thus far. 09: Dr. Estrada reevaluatede the patient and updated him with the treatment plan. He agreed. 0938: Dr. Estrada discussed the patient's case with Vivi TALBERT under Dr. Delphine Eddy Hospitalist. They agreed to accept the p atient for further evaluation. Administered Medications [facility]vastatin Calcium ([facility]) [facility] [place]: 03/18/19 11:44 Last Admin: 02/16/19 12:15 Dose: 20 mg Documented by: [id number] Divalproex Sodium (Depakote Extended Release) 500 [facility] [place]: 03/18/19 11:44 Last Admin: 02/16/19 12:15 Dose: 500 mg Documented by: [id number] Gabapentin (Neurontin) 300 mg PO TID [facility] Stop: 03/18/19 11:39 Last Admin: 02/16/19 12:15 Dose: 300 mg Documented by: [id number] Sertraline HCl (Zoloft) 200 mg PO [facility] Stop: 03/18/19 11:44 Last Admin: 02/16/19 12:15 Dose: 200 mg Documented by: [id number] Discontinued Medications Acetaminophen (Tylenol) 1,000 mg PO NOW STA Stop: 02/16/19 11:41 Last Admin: 02/16/19 12:16 Dose: 1,000 mg Documented by: [id number] Furosemide (Lasix) 20 mg IV NOW STA Stop: 02/16/19 07:54 Last Admin: 02/16/19 08:06 Dose: 20 mg Documented by: [id number] Ioversol (Optiray 320 125ml) 101 ml IV ONCE PRN PRN Reason: Interaction Checking Stop: 02/20/19 08:42 Last Admin: 02/16/19 08:43 Dose: 101 ml Documented by: [id number] Medical Decision Making Differential Diagnosis Differential Diagnosis includes: HTN emergency, CHF, anxiety, electrolyte/metabolic abnormality, and infection, amongst others. Medical Records Attestation: I reviewed the patient's medical records. Home Medications Current Medication List: was personally reviewed by me Laboratory Data Attestation: I reviewed the patient's lab results. Result diagrams: 02/16/19 06:08 02/16/19 06:08 Lab Results 02/16/19 02/16/19 02/16/19 Range/Units 06:08 06:08 06:08 WBC 5.16 (4.8-10.8) K/uL RBC 4.92 (4.7-6.1) M/uL Hgb 16.1 (14.0-18.0) g/dL Hct 46.8 (42-52) % MCV 95.1 (80-100) fL MCH 32.7 (25-34) pg MCHC 34.4 (32-36) g/dL RDW Std Deviation 48.2 H (36.4-46.3) fL RDW Coeff of Tai 13.9 (11.5-14.5) % Plt Count 178 (130-400) K/uL MPV 9.5 (7.4-10.4) fL Immature Gran % (Auto) 0.4 % Neut % (Auto) 60.7 % Lymph % (Auto) 25.2 % [place] % (Auto) 11.2 % Eos % (Auto) 2.3 % Baso % (Auto) 0.2 % Immature Gran # (Auto) 0.02 (0.00-0.02) K/uL Neut # (Auto) 3.13 (1.4-6.5) K/uL Lymph # (Auto) 1.30 (1.2-3.4) K/uL [place] # (Auto) 0.58 (0.11-0.59) K/uL Eos # (Auto) 0.12 (0-0.5) K/uL Baso # (Auto) 0.01 (0-0.2) K/uL PT Cancelled INR Cancelled APTT Cancelled PTT Ratio Cancelled Sodium 146 H (136-145) mmol/L Potassium 4.8 (3.5-5.1) mmol/L Chloride 113 H (98-107) mmol/L Carbon Dioxide 27 (21-32) mmol/L Anion Gap 6.0 (3-11) BUN 20 H (7-18) mg/dl Creatinine 1.28 (0.6-1.4) mg/dl Est Cr Clr Drug Dosing 66.9 ml/min Est GFR ( Amer) 66.7 Est GFR (Non-Af Amer) 57.5 BUN/Creatinine Ratio 15.3 (10-20) Glucose 108 H (70-99) mg/dl Calcium 9.1 (8.5-10.1) mg/dl Magnesium 1.9 (1.8-2.4) mg/dl Total Bilirubin 0.4 (0.2-1) mg/dl AST 28 (15-37) U/L ALT 48 (12-78) U/L Alkaline Phosphatase 109 (45-117) U/L Troponin I < 0.015 (0-0.045) ng/ml NT-Pro-B Natriuret Pep 77 (0-900) pg/ml Total Protein 6.5 (6.4-8.2) gm/dl Albumin 3.5 (3.4-5.0) gm/dl Globulin 3.0 (2.5-4.0) gm/dl Albumin/Globulin Ratio 1.2 (0.9-2) TSH (0.300-4.500) uIu/ml Urine Color Urine Appearance (Clear) Urine pH (4.5-7.5) Ur Specific [place] (1.000-1.030) Urine Protein (Negative) Urine Glucose (UA) (Negative) Urine Ketones (Negative) Urine Blood (Negative) Urine Nitrite (Negative) Urine Bilirubin (Negative) Urine Urobilinogen (Negative) Ur Leukocyte Esterase (Negative) Valproic Acid (50-100) mcg/ml 02/16/19 02/16/19 02/16/19 Range/Units 06:08 06:08 07:10 WBC (4.8-10.8) K/uL RBC (4.7-6.1) M/uL Hgb (14.0-18.0) g/dL Hct (42-52) % MCV (80-100) fL MCH (25-34) pg MCHC (32-36) g/dL RDW Std Deviation (36.4-46.3) fL RDW Coeff of Tai (11.5-14.5) % Plt Count (130-400) K/uL MPV (7.4-10.4) fL Immature Gran % (Auto) % Neut % (Auto) % Lymph % (Auto) % [place] % (Auto) % Eos % (Auto) % Baso % (Auto) % Immature Gran # (Auto) (0.00-0.02) K/uL Neut # (Auto) (1.4-6.5) K/uL Lymph # (Auto) (1.2-3.4) K/uL [place] # (Auto) (0.11-0.59) K/uL Eos # (Auto) (0-0.5) K/uL Baso # (Auto) (0-0.2) K/uL PT INR APTT PTT Ratio Sodium (136-145) mmol/L Potassium (3.5-5.1) mmol/L Chloride (98-107) mmol/L Carbon Dioxide (21-32) mmol/L Anion Gap (3-11) BUN (7-18) mg/dl Creatinine (0.6-1.4) mg/dl Est Cr Clr Drug Dosing ml/min Est GFR ( Amer) Est GFR (Non-Af Amer) BUN/Creatinine Ratio (10-20) Glucose (70-99) mg/dl Calcium (8.5-10.1) mg/dl Magnesium (1.8-2.4) mg/dl Total Bilirubin (0.2-1) mg/dl AST (15-37) U/L ALT (12-78) U/L Alkaline Phosphatase (45-117) U/L Troponin I (0-0.045) ng/ml NT-Pro-B Natriuret Pep (0-900) pg/ml Total Protein (6.4-8.2) gm/dl Albumin (3.4-5.0) gm/dl Globulin (2.5-4.0) gm/dl Albumin/Globulin Ratio (0.9-2) TSH 3.360 (0.300-4.500) uIu/ml Urine Color Yellow Urine Appearance Clear (Clear) Urine pH 6.0 (4.5-7.5) Ur Specific [place] 1.014 (1.000-1.030) Urine Protein Negative (Negative) Urine Glucose (UA) Negative (Negative) Urine Ketones Negative (Negative) Urine Blood Negative (Negative) Urine Nitrite Negative (Negative) Urine Bilirubin Negative (Negative) Urine Urobilinogen Negative (Negative) Ur Leukocyte Esterase Negative (Negative) Valproic Acid 56 (50-100) mcg/ml Imaging Data Radiologist's Impression: Radiology results as stated below per my review and the radiologist's interpretation: XR chest 2V PA/lateral CLINICAL HISTORY: 68 years-old Male presenting with dyspnea. TECHNIQUE: PA and lateral views of the chest were obtained. COMPARISON: 02/16/2019. FINDINGS: Mild tortuosity and/or prominence of the thoracic aorta. Cardiac silhouette top normal in size. Minimal irregular linear opacities at the lung bases. No focal opacity in the periphery of the left lung base as queried. No pleural effusion or pneumothorax. Degenerative changes of the thoracic spine. Severe compression deformity at the thoracolumbar junction, likely L1. New since prior CT on 09/03/2017. Upper abdomen normal. IMPRESSION: 1. No focal infiltrate at the site of clinical concern. 2. Minimal bibasilar scarring or atelectasis. 3. Severe compression deformity likely of L1, new since August. Correlate with point tenderness to assess for acuity. ACT 112: Negative or not required by law. Electronically signed by: Saulo Townsend M.D. 02/16/2019 7:49 AM XR chest 1V portable CLINICAL HISTORY: 68 years-old Male presenting with Dyspnea. TECHNIQUE: Portable upright AP view of the chest was obtained. COMPARISON: 08/24/2018. FINDINGS: Atherosclerosis of the aortic arch. Cardiac silhouette enlarged. Mild pulmonary vascular prominence. Elevation of the right hemidiaphragm. Questionable peripheral added density in the left lung base in comparison to the right.. No large effusion or pneumothorax. Advanced degenerative changes or posttraumatic deformity of the right humeral neck and right glenohumeral joint. Upper abdomen normal. IMPRESSION: 1. Questionable added density in the periphery of the left lung base in the comparison to the right. PA and lateral views recommended for better assessment as an infiltrate is difficult to exclude. 2. Cardiomegaly with mild volume overload. ACT 112: Negative or not required by law. Electronically signed by: Saulo Townsend M.D. 02/16/2019 7:07 AM ECG Data Attestation: I personally reviewed and interpreted this ECG as follows: Indication: + SOB/dyspnea Rate (beats per minute): 85 Rhythm: + normal sinus ECG ST segments: + Nonspecific ST abnormalities; no ST depression and no ST elevation ECG Findings: + Other (Poor baseline) Comparison ECG Date: from (08/24/18) Change: the following changes noted (ST abnormalities are new) Blood Pressure Blood Pressure Findings: Elevated blood pressure Blood Pressure Disposition: Referred to patients primary care provider [facility] Narrative This patient comes in as described above. He was sent over from the residential after his blood pressure was noted to be elevated yesterday. It was also noted that he was hypoxemic and has peripheral edema which he says is new. He denies any complaints at present. We did place him on oxygen and did a full cardiac work-up. This included EKG, chest x-ray, multiple blood testing. He was reassessed frequently. EKG does not show any definite ischemic changes. Tr oponin is negative. Chest x-ray shows possibly mild CHF. However his BNP is normal. His blood pressure is trending downward without any treatment, we did give him 1 dose of Lasix 20 mg IV. No significant electrolyte or metabolic abnormality, he does have a history of DVT and in light of this we did do a chest CTA of his chest and it was unremarkable for PE/DVT. There is no definite acute findings. I am concerned he is hypoxemic in the high 80s and when he walks he gets down to 85%. I think he may have a congestive heart failure component as he does have peripheral edema and hypertension and his lungs and do sound somewhat crackly to me as well. Given this is all new, I do think he nee ds to be admitted particularly with him being hypoxemic we have consulted the [facility] hospitalist to see him in the ER for these measures. Impression & Plan CHF (congestive heart failure), Edema of lower extremity, Hypoxemia, Bipolar d isorder, ADAMS (dyspnea on exertion) Discharge Plan Visit Data *Final* Discharge Date/Time: 02/16/19 13:52 Chief Complaint: Hypertension Stated Complaint: HYPERTENSIVE ED Provider: Daniel Cronin ED Midlevel Provider: Jose E Estrada Discharge Problem: CHF (congestive heart failure), Edema of lower extremity, Hypoxemia, Bipolar disorder, ADAMS (dyspnea on exertion) Patient Disposition: Admitted As Inpatient Discharge Instructions Interventions: ED Discharge Assessment Last Done: 02/16/19 13:52 Discharge Problem: CHF (congestive heart failure) Qualifiers: Heart failure type: unspecified Heart failure chronicity: acute Qualified Code(s): I50.9 - Heart failure, unspecified Bipolar disorder Qualifiers: Active/Remission status: remission status unspecified Qualified Code(s): F31.9 - Bipolar disorder, unspecified The scribe's documentation has been prepared under my direction and personally reviewed by me in its entirety. I confirm that the note above accurately reflects all work, treatment, procedures, and medical decision making performed by me.
[2019-02-16 07:16] LABS: Alanine Aminotransferase 48 U/L (12-78); Albumin Level 3.5 gm/dl (3.4-5.0); Aspartate Aminotransferase 28 U/L (15-37); BUN Creatinine Ratio 15.3 (10-20); Blood Urea Nitrogen 20 mg/dl (7-18); Calcium 9.1 mg/dl (8.5-10.1); Carbon Dioxide 27 mmol/L (21-32); Chloride 113 mmol/L (98-107); Creatinine Clr Calc Pharmacy 66.9 ml/min; Est GFR (African American) 66.7; Est GFR (Non-African American) 57.5; Glucose 108 mg/dl (70-99); Magnesium 1.9 mg/dl (1.8-2.4); Potassium 4.8 mmol/L (3.5-5.1); Sodium 146 mmol/L (136-145)
[2019-02-16 07:21] LABS: Albumin Globulin Ratio 1.2 (0.9-2); Alkaline Phosphatase 109 U/L (45-117); Bilirubin,Total 0.4 mg/dl (0.2-1); NT Pro B Type Natriuretic Pept 77 pg/ml (0-900); Total Protein 6.5 gm/dl (6.4-8.2); Troponin I < 0.015 ng/ml (0-0.045)
[2019-02-16 07:25] LABS: Appearance Urine Clear (Clear); Bilirubin Urine Negative (Negative); Blood Urine Negative (Negative); Color Urine Yellow; Glucose Urine UA Negative (Negative); Ketones Urine Negative (Negative); Leukocyte Esterase Urine Negative (Negative); Nitrite Urine Negative (Negative); Protein Urine Negative (Negative); Specific Gravity Urine 1.014 (1.000-1.030); Urobilinogen Urine Negative (Negative)
--- NOTE | 2019-02-16 07:43 | Emergency Department Note ---
ED Visit Note This patient was seen in concert with Dr. Cronin and we discussed and agreed upon the history, physical, assessment, and plan. See attending's note for details. . Resident Activity Tracking Resident Involvement: Resident Care Provided Care Provided: Adult ED
--- NOTE | 2019-02-16 07:51 | XRay Report ---
XR chest 2V PA/lateral CLINICAL HISTORY: 68 years-old Male presenting with dyspnea. TECHNIQUE: PA and lateral views of the chest were obtained. COMPARISON: 02/16/2019. FINDINGS: Mild tortuosity and/or prominence of the thoracic aorta. Cardiac silhouette top normal in size. Minim al irregular linear opacities at the lung bases. No focal opacity in the periphery of the left lung b ase as queried. No pleural effusion or pneumothorax. Degenerative changes of the thoracic spine. Lori re compression deformity at the thoracolumbar junction, likely L1. New since prior CT on 09/03/2017. U pper abdomen normal. IMPRESSION: 1. No focal infiltrate at the site of clinical concern. 2. Minimal bibasilar scarring or atelectasis. 3. Severe compression deformity likely of L1, new since August. Correlate with point tenderness to ass ess for acuity. ACT 112: Negative or not required by law. Electronically signed by: Saulo Townsend M.D. 02/16/2019 7:49 AM
[2019-02-16] MEDS ORDERED: FUROSEMIDE 40 MG/4 ML VIAL IV STA ×2 (07:53→14:13)
[2019-02-16] MEDS ORDERED: OPTIRAY 320 125ml IV PRN (08:43)
--- NOTE | 2019-02-16 09:04 | CT Scan Report ---
CHEST CTA for PULMONARY ARTERIES CT DOSE: 826.71 mGy.cm HISTORY: Shortness of breath. TECHNIQUE: Multiaxial CT images of the chest were performed following the intravenous administration of contrast to evaluate the pulmonary arteries. Maximal intensity projection images were also obtaine d. A dose lowering technique was utilized adhering to the principles of ALARA. COMPARISON STUDY: Chest CT 09/03/2017. FINDINGS: Multiple mild superior endplate compression deformities within the mid thoracic spine. Thes e remain unchanged and are therefore considered to be chronic. There is a subacute to chronic mild gill perior endplate compression fracture at L1. This demonstrates 3 mm of retropulsion with moderate to s evere central canal narrowing at this level. Old, healed right-sided rib fractures. Normal caliber th oracic aorta with no evidence for dissection. The heart is normal in size. No pleural or pericardial effusions. The majority of the bilateral lower lobe and lingular segmental and subsegmental pulmonary arteries are essentially nondiagnostic due to the respiratory motion artifact. However, the remainin g pulmonary arteries show no filling defect to suggest pulmonary embolus. Bilateral hilar lymph nodes measure subcentimeter in short axis diameter and therefore do not meet CT criteria for pathologic in volvement. Hepatic steatosis. The visualized adrenal glands and spleen are unremarkable. Normal esoph nisa. A single enlarged AP window lymph node which measures 2.1 x 1.4 cm. This previously measured 2. 0 x 1.0 cm. There are 2 subcarinal lymph nodes which are also mildly enlarged with the largest measur ing 2.4 x 1.5 cm. The heart is normal in size. Suboptimal evaluation of the lower lung zones due to t he respiratory motion artifact. No pneumothorax. The central airways remain patent. Stable 2 mm nodul e within the left lung apex on image 247. Small linear scarlike density within the left lung apex are also unchanged. These are likely benign given the long-term stability. A few bibasilar linear densit ies favor subsegmental atelectasis are scarring. These are similar to the prior study. Calcified gran uloma within the base of the right lower lobe. No new focal lung consolidations to suggest pneumonia. IMPRESSION: 1. No evidence for pulmonary embolus with limitations as described above. 2. Mild mediastinal lymphadenopathy which has slightly progressed. This is nonspecific and could be d ue to an infectious/inflammatory process. A neoplastic process is not excluded. [address] foll ow-up recommended. 3. A subacute to chronic mild superior endplate compression fracture at L1 which demonstrates 3 mm of retropulsion and moderate to severe central canal narrowing at this level. 4. Additional findings as described above. ACT 112: Negative or not required by law. Electronically signed by: Josh Contreras M.D. 02/16/2019 9:03 AM
--- NOTE | 2019-02-16 10:49 | History & Physical Report ---
Date of Service February 16, 2019 Assessment & Plan (1) Hypertensive urgency: (2) Volume overload: (3) Hypoxia: This is a 68-year-old male who has significant past medical history of hypothyroidism, hyperlipidemia, CKD stage III, bipolar disorder type I, recurrent MDD, history of DVT LLE 03/2018 treated with xarelto, history of subdural hematoma 06/2018, dependent edema who presents to ED secondary to high blood pressure during psychiatric outpatient visit. In ED patient was found to be significantly hypertensive 174/118 and hypoxic requiring 2 L of O2. He was otherwise hemodynamically stable without signs or symptoms of cardiac instability. EKG revealed normal sinus rhythm 85 bpm, no significant ST or T wave changes. He received 20 mg IV Lasix in ED but continued to require O2; therefore, was recommended for admission. Patient with no prior history of hypertension, vitals reviewed at prior outpatient PCP visits and he has been normotensive. Volume overload, hypoxia and lower extremity edema likely brought on by uncontrolled hypertension. Possibly in setting of NSAID use with meloxicam. Admit to telemetry Lasix IV 80 mg x 1 now Daily weights, monitor I's and O's Heart healthy low-sodium diet Obtain echocardiogram Place [facility] Monitor blood pressure Stop NSAIDs (4) Hyperlipidemia: Continue statin (5) CKD (chronic kidney disease), stage III: Renal function stable at 20 and 1.28 Monitor with diuresis (6) Compression fracture of lumbar vertebra: Recent diagnosis of L1 compression fracture, follows not Dr. Winters Placed on meloxicam 15 mg daily Hold secondary to hypertension avoid nsaids if able (7) Bipolar disorder: continue depakote and IM abilify (received q5 weeks, last given 02/15/2019) mood stable (8) Hypothyroidism: TSH 3.36 continue levothyroxine (9) Lymphadenopathy, mediastinal: Per CT: Mild mediastinal lymphadenopathy which has slightly progressed. This is nonspecific and could be due to an infectious/inflammatory process. A neoplastic process is not excluded. [address] follow-up recommended. Previously seen on xray 06/2018 follow up with PCP for repeat CT in 6 months (10) History of DVT (deep vein thrombosis): SQ Heparin, SCD/TEDS Disposition: admit to telemetry Follow up: PCP Dr. Pedraza upon discharge Pt was seen and examined in collaboration with Dr. Akers, please see addendum History of Present Illness Chief Complaint: Elevated blood pressure during outpatient psych office visit Primary Care Provider: Elaina Xavier, This is a 68-year-old male who has significant past medical history of hypothyroidism, hyperlipidemia, CKD stage III, bipolar disorder type I, recurrent MDD, history of DVT LLE 03/2018 treated with xarelto, history of subdural hematoma 06/2018, dependent edema who presents to ED secondary to high blood pressure during psychiatric outpatient visit. He was seen in the outpatient setting yesterday by psychiatrist who noted blood pressure to be 187/116. He is currently residing at [facility] who called his PCP and recommended him to be seen in ED. He denies prior history of hypertension. He currently denies any fever, chills, sweats, lightheadedness, dizziness, chest pain, shortness of breath at rest, palpitations, cough, hemoptysis, nausea, vomiting, diarrhea, abdominal pain. He does list increased lower extremity edema and mild abdominal distention. He denies any difficulty with urination but currently appears incontinent. Of significance patient recently diagnosed with L1 compression fracture by Dr. Winters on 02/02/2019 in which he was placed on meloxicam 15 mg daily. He admits to taking this daily. He denies any prior history of heart attack or CHF. Currently resides at [facility]. He is a non-smoker nondrinker. Ambulates with cane. Mother and father are both secondary to, "old age." He does have son that he is estranged from, unknown family history. In ED patient was found to be significantly hypertensive 174/118 and hypoxic requiring 2 L of O2. He was otherwise hemodynamically stable without signs or symptoms of cardiac instability. EKG revealed normal sinus rhythm 85 bpm, no significant ST or T wave changes. He received 20 mg IV Lasix in ED but continued to require O2; therefore, was recommended for admission. Allergies Allergy/AdvReac Type Severity Reaction Status Date / Time No Known Allergies Allergy Verified 02/16/19 07:24 Home Medications Home Medications Medication Instructions Recorded Confirmed Type acetaminophen 650 mg PO BID PRN 06/24/18 02/16/19 History atorvastatin 20 mg PO QAM 06/24/18 02/16/19 History cholecalciferol (vitamin D3) 1,000 unit PO HS 06/24/18 02/16/19 History [Vitamin D3] levothyroxine 75 mcg PO QAM 06/24/18 02/16/19 History sertraline 200 mg PO QAM 06/24/18 02/16/19 History meloxicam 15 mg tablet 15 mg PO DAILY #30 tab 02/02/19 02/16/19 Rx aripiprazole [Abilify Maintena] 400 mg IM DIRECTED 02/16/19 02/16/19 History divalproex 1,500 mg PO HS 02/16/19 02/16/19 History divalproex 500 mg PO QAM 02/16/19 02/16/19 History gabapentin 300 mg PO TID 02/16/19 02/16/19 History Past Med/Surg History Medical History Bipolar disorder CKD (chronic kidney disease), stage III Dizziness (Inactive) History of DVT (deep vein thrombosis) History of electroconvulsive therapy History of traumatic brain injury History of small right tentorial SDH 06/2018 while on Xarelto for a provoked DVT. Repeat CT scan in 07/2018 revealed resolution. Hyperlipidemia Hypothyroidism (Chronic) Hypoxia No pertinent family history Pedal edema (Inactive) Vitiligo (Chronic) Surgical History History of colonoscopy with polypectomy History of esophagogastroduodenoscopy (EGD) Positive H. pylori Status post cholecystectomy (Chronic) Family History Other Unknown family medical history Social History Preferred Language: Afghan Communication Ability: Effective Visual Impairment: No Limitations Hearing Ability: Normal Operational Trainer Required: No Beliefs That Will Affect Care: None marital status: single Current Living Situation: Personal Care Facility Current Living Situation Comment: [facility] current occupational status: retired current occupation: [employer] for 35.5 yrs Other Information That Helps Us Care for You: No Feels Safe at Home: Yes Safety Concerns: Feels Safe At This Time Smoking Status: Never smoker Hx Alcohol Use: No Hx Substance Use: No Review of Systems Review of Systems: All systems reviewed & are unremarkable except as noted in HPI & below Physical Exam Physical Exam: Constitutional: WD/WN, M, vitals as above, NAD, sitting up in bed, pleasant, conversing easily, on O2 via NC Head: Normocephalic, Atraumatic Eyes: PERRL, conjunctivae normal, anicteric sclerae ENMT: external ear and nose normal, oropharynx moist mucous membranes Neck: trachea midline, no thyromegaly normal visual inspection Respiratory: normal respiratory effort, on O2 via NC, lungs clear to auscultation, no wheeze, rales, rhonchi. Normal insp/exp effort, no accessory muscle use Cardiovascular: RRR, no murmur, b/l pre tibial +2 edema, + pedal edema Vessels: no JVD or carotid bruit Chest: normal inspection of chest Abdomen: normal bowel sounds, soft, nontender, no hepatosplenomegaly Musculoskeletal: no cyanosis or clubbing, extremities motor strength 5/5 Skin: no rashes, warm and dry normal turgor Neurologic: PERRL, EOMI, accommodation nl, no face palsy, no dysarthria CN's II-XI intact bilaterally and moves all extremities Psychiatric: A+Ox3, euthymic affect Lymphatic: no cervical or axillary lymphadenopathy : deferred Results & Data Vital Signs (Past 12 Hours) Vital Signs Temp Pulse Pulse Resp Resp BP BP 02/16/19 10:00 78 24 151/95 H 02/16/19 09:38 75 25 H 02/16/19 09:37 70 25 H 185/118 H 02/16/19 09:03 74 23 153/88 H 02/16/19 08:00 74 24 160/96 H 02/16/19 07:13 78 24 172/109 H 02/16/19 07:12 26 H 02/16/19 06:51 02/16/19 06:42 02/16/19 06:33 36.3 C L 84 18 174/118 H Pulse Ox Pulse Ox 02/16/19 10:00 98 02/16/19 09:38 94 02/16/19 09:37 87 L 02/16/19 09:03 90 02/16/19 08:00 98 02/16/19 07:13 96 02/16/19 07:12 85 L 02/16/19 06:51 94 02/16/19 06:42 93 02/16/19 06:33 89 L Laboratory Results Short CBC 02/16/19 Range/Units 06:08 WBC 5.16 (4.8-10.8) K/uL Hgb 16.1 (14.0-18.0) g/dL Hct 46.8 (42-52) % Plt Count 178 (130-400) K/uL BMP 02/16/19 06:08 Sodium 146 H Potassium 4.8 Chloride 113 H Carbon Dioxide 27 BUN 20 H Creatinine 1.28 Glucose 108 H Calcium 9.1 Cardiac Enzymes 02/16/19 Range/Units 06:08 Troponin I < 0.015 (0-0.045) ng/ml Liver Function 02/16/19 Range/Units 06:08 Total Bilirubin 0.4 (0.2-1) mg/dl AST 28 (15-37) U/L ALT 48 (12-78) U/L Alkaline Phosphatase 109 (45-117) U/L Albumin 3.5 (3.4-5.0) gm/dl Urine 02/16/19 Range/Units 07:10 Urine Color Yellow Urine Appearance Clear (Clear) Urine pH 6.0 (4.5-7.5) Ur Specific [place] 1.014 (1.000-1.030) Urine Protein Negative (Negative) Urine Glucose (UA) Negative (Negative) Diagnostic Findings CXR: IMPRESSION: 1. Questionable added density in the periphery of the left lung base in the comparison to the right. PA and lateral views recommended for better assessment as an infiltrate is difficult to exclude. 2. Cardiomegaly with mild volume overload. CXR2: IMPRESSION: 1. No focal infiltrate at the site of clinical concern. 2. Minimal bibasilar scarring or atelectasis. 3. Severe compression deformity likely of L1, new since August. Correlate with point tenderness to assess for acuity. Chest CTA: FINDINGS: Multiple mild superior endplate compression deformities within the mid thoracic spine. These remain unchanged and are therefore considered to be chronic. There is a subacute to chronic mild superior endplate compression fracture at L1. This demonstrates 3 mm of retropulsion with moderate to severe central canal narrowing at this level. Old, healed right-sided rib fractures. Normal caliber thoracic aorta with no evidence for dissection. The heart is normal in size. No pleural or pericardial effusions. The majority of the bilateral lower lobe and lingular segmental and subsegmental pulmonary arteries are essentially nondiagnostic due to the respiratory motion artifact. However, the remaining pulmonary arteries show no filling defect to suggest pulmonary embolus. Bilateral hilar lymph nodes measure subcentimeter in short axis diameter and therefore do not meet CT criteria for pathologic involvement. Hepatic steatosis. The visualized adrenal glands and spleen are unremarkable. Normal esophagus. A single enlarged AP window lymph node which measures 2.1 x 1.4 cm. This previously measured 2.0 x 1.0 cm. There are 2 subcarinal lymph nodes which are also mildly enlarged with the largest measuring 2.4 x 1.5 cm. The heart is normal in size. Suboptimal evaluation of the lower lung zones due to the respiratory motion artifact. No pneumothorax. The central airways remain patent. Stable 2 mm nodule within the left lung apex on image 247. Small linear scarlike density within the left lung apex are also unchanged. These are likely benign given the long-term stability. A few bibasilar linear densities favor subsegmental atelectasis are scarring. These are similar to the prior study. Calcified granuloma within the base of the right lower lobe. No new focal lung consolidations to suggest pneumonia. IMPRESSION: 1. No evidence for pulmonary embolus with limitations as described above. 2. Mild mediastinal lymphadenopathy which has slightly progressed. This is nonspecific and could be due to an infectious/inflammatory process. A neoplastic process is not excluded. [address] follow-up recommended. 3. A subacute to chronic mild superior endplate compression fracture at L1 which demonstrates 3 mm of retropulsion and moderate to severe central canal narrowing at this level. 4. Additional findings as described above. Medications Administered Ioversol (Optiray 320 125ml) 101 ml IV ONCE PRN PRN Reason: Interaction Checking Stop: 02/20/19 08:42 Last Admin: 02/16/19 08:43 Dose: 101 ml Documented by: [id number] Discontinued Medications Furosemide (Lasix) 20 mg IV NOW STA Stop: 02/16/19 07:54 Last Admin: 02/16/19 08:06 Dose: 20 mg Documented by: [id number] ECG Rate (beats per minute): 85 Rhythm: normal sinus Code Status & VTE Plan Code Status Full Code VTE Prophylaxis Plan VTE Prophylaxis will be ordered: Yes Supervising Physician Co-Signing Physician Notes I saw this patient with the physician admissions assistant, I participated in the history, physical, review of systems, and physical exam. I reviewed the medications with the patient and the physician admissions assistant and helped reconcile the medications. I helped take a detailed family and social history as well. I formulated the assessment and plan personally with the physician admissions assistant and went over it with the patient. ROS-No Headache, No Visual Changes, No Nausea, No Vomiting, No Fever, No Chills, No Neck Pain or Stiffness, No Chest Pain, No Palpitations, + SOB, + ADAMS, + Edema, No Cough, No Sputum, No Wheezing, No Abdominal Pain, No Diarrhea, No Hematemesis, No Hemoptysis, No Unexpected Weight Loss, No Flank pain, No Melena, No Hematochezia, No Frequency, No Urgency, No Burning, No Hematuria, No Rashes, No Diaphoresis. Appetite is Normal Physical Exam Gen-AAO x 3, NAD, Afebrile Head-NCAT, EOMI, PERRLA, Anicteric Sclera, No Posterior Pharyngeal Erythema Neck-Supple, No JVD, No Thyromegaly, No Masses, No LAD, No Bruits Lungs-Clear to Auscultation Bilaterally, No Rales, No Rhonchi, No Wheezing, No Crepitus Chest-No S4, +S1, +S2, No S3, No Murmurs, No Rubs, No Gallops, No Ectopy Abdomen-Soft, Bowel Sounds Present, Non Tender, Non Distended, No Hepatomegaly, No Splenomegaly, No Palpable Masses, No Rebound, No Rigidity, No Guarding Musculoskeletal-Full Range of Motion Bilaterally, No CVAT Extremities-No Cyanosis, No Clubbing, 2-3+ Pitting Edema bilaterally Nuero-Cranial Nerves II-XII grossly intact, Motor WNL, DTRs WNL, Strength WNL, Non Focal Psych-Normal Mood
[2019-02-16] MEDS ORDERED: ACETAMINOPHEN 500 MG TAB PO STA (11:40)
[2019-02-16] MEDS ORDERED: DIVALPROEX EXTENDED RELEASE 500 MG TAB PO SCH (11:45)
[2019-02-16] MEDS ORDERED: SERTRALINE HCL 100 MG TABLET PO SCH (11:45)
[2019-02-16] MEDS: GABAPENTIN 300 MG CAP PO SCH ×3 (12:15→20:24)
[2019-02-16] MEDS: ATORVASTATIN 20 MG TAB PO SCH (12:15)
--- NOTE | 2019-02-16 12:39 | Electrocardiogram Report ---
Test Reason : Blood Pressure : / mmHG Vent. Rate : 085 BPM Atrial Rate : 085 BPM P-R Int : 140 ms QRS Dur : 090 ms QT Int : 382 ms P-R-T Axes : 059 213 064 degrees QTc Int : 454 ms Normal sinus rhythm Right superior axis deviation Nonspecific ST and T wave abnormality Abnormal ECG When compared with ECG of 24-AUG-2018 13:41, Questionable change in QRS axis Confirmed by Melvin Peng ([id number]) on 02/16/2019 12:39:19 PM Referred By: REFERRED SELF Confirmed By:Melvin Peng
[2019-02-16] MEDS ORDERED: ONDANSETRON INJ 2 MG/ML 2 ML VIAL IV PRN (14:13)
[2019-02-16] MEDS ORDERED: POLYETHYLENE (MIRALAX) 17 GM PACK PO PRN (14:13)
[2019-02-16] MEDS ORDERED: MAGNESIUM HYDROXIDE SUSP 30 ML UDC PO PRN (14:13)
[2019-02-16] MEDS ORDERED: ALUMINUM/MAGNESIUM SUSP 30 ML UDC PO PRN (14:13)
[2019-02-16] MEDS ORDERED: GABAPENTIN 300 MG CAP PO SCH (14:30)
[2019-02-16] MEDS ORDERED: FUROSEMIDE 80 MG in SYRINGE 0 ML IV ONE (14:30)
[2019-02-16] MEDS: HEPARIN SOD 5,000 UNIT/0.5 ML VIAL SQ SCH ×2 (16:50→21:04)
[2019-02-16] MEDS: DIVALPROEX EXTENDED RELEASE 500 MG TAB PO SCH (20:23)
[2019-02-16] MEDS: CHOLECALCIFEROL 1,000 UNITS TAB PO SCH (20:24)
[2019-02-17] MEDS: ACETAMINOPHEN 325 MG TAB PO PRN (04:02)
[2019-02-17] MEDS: HEPARIN SOD 5,000 UNIT/0.5 ML VIAL SQ SCH ×3 (05:42→22:32)
[2019-02-17] MEDS: LEVOTHYROXINE SODIUM 75 MCG TABLET PO SCH (05:46)
[2019-02-17 06:47] LABS: Hemoglobin 16.7 g/dL (14.0-18.0); Mean Corpuscular Hgb Conc 34.8 g/dL (32-36); Mean Corpuscular Volume 94.9 fL (80-100); Mean Platelet Volume 9.6 fL (7.4-10.4); Platelet Count 180 K/uL (130-400); RDW Coefficient of Variation 13.9 % (11.5-14.5); RDW Standard Deviation 47.1 fL (36.4-46.3); Red Blood Count 5.06 M/uL (4.7-6.1); White Blood Count 7.23 K/uL (4.8-10.8)
[2019-02-17 07:31] LABS: BUN Creatinine Ratio 16.5 (10-20); Calcium 8.9 mg/dl (8.5-10.1); Creatinine Clr Calc Pharmacy 54.9 ml/min; Est GFR (African American) 53.7; Est GFR (Non-African American) 46.4
--- NOTE | 2019-02-17 08:06 | Hospitalist Progress Note ---
Date of Service February 17, 2019 Assessment & Plan (1) Hypertensive urgency: (2) Volume overload: (3) Hypoxia: This is a 68-year-old male who has significant past medical history of hypothyroidism, hyperlipidemia, CKD stage III, bipolar disorder type I, recurrent MDD, history of DVT LLE 03/2018 treated with xarelto, history of subdural hematoma 06/2018, dependent edema who presents to ED secondary to high blood pressure during psychiatric outpatient visit. In ED patient was found to be significantly hypertensive 174/118 and hypoxic requiring 2 L of O2. He was otherwise hemodynamically stable without signs or symptoms of cardiac instability. EKG revealed normal sinus rhythm 85 bpm, no significant ST or T wave changes. He received 20 mg IV Lasix in ED but continued to require O2; therefore, was recommended for admission. Patient with no prior history of hypertension, vitals reviewed at prior outpatient PCP visits and he has been normotensive. Volume overload, hypoxia and lower extremity edema likely brought on by uncontrolled hypertension. Possibly in setting of NSAID use with meloxicam. Lasix IV 80 mg x 1 given, Cr up today, hold off on Lasix, Nebs and Spirometry 2 step before dc Daily weights, monitor I's and O's Heart healthy low-sodium diet Echocardiogram EF 55-60% Remove Padilla Monitor blood pressure Stop NSAIDs (4) Hyperlipidemia: Continue statin (5) CKD (chronic kidney disease), stage III: Monitor with diuresis (6) Compression fracture of lumbar vertebra: Recent diagnosis of L1 compression fracture, follows not Dr. Winters Placed on meloxicam 15 mg daily Hold secondary to hypertension avoid nsaids if able (7) Bipolar disorder: continue depakote and IM abilify (received q5 weeks, last given 02/15/2019) mood stable (8) Hypothyroidism: TSH 3.36 continue levothyroxine (9) Lymphadenopathy, mediastinal: Per CT: Mild mediastinal lymphadenopathy which has slightly progressed. This is nonspecific and could be due to an infectious/inflammatory process. A neoplastic process is not excluded. [address] follow-up recommended. Previously seen on xray 06/2018 follow up with PCP for repeat CT in 6 months (10) History of DVT (deep vein thrombosis): SQ Heparin, SCD/TEDS Disposition: DC today or am /12, try to get him off O2, 2-Step, Nebs and Spirometry ordered, He's down 4 Kg, Hold Lasix sec to Cr Follow up: PCP Dr. Pedraza upon discharge ROS-No Headache, No Visual Changes, No Nausea, No Vomiting, No Fever, No Chills, No Neck Pain or Stiffness, No Chest Pain, No Palpitations, No SOB, No ADAMS, No Cough, No Sputum, No Wheezing, No Abdominal Pain, No Diarrhea, No Hematemesis, No Hemoptysis, No Unexpected Weight Loss, No Flank pain, No Melena, No Hematochezia, No Frequency, No Urgency, No Burning, No Hematuria, No Rashes, No Diaphoresis. Appetite is Normal Physical Exam Gen-AAO x 3, NAD, Afebrile, Obese Head-NCAT, EOMI, PERRLA, Anicteric Sclera, No Posterior Pharyngeal Erythema Neck-Supple, No JVD, No Thyromegaly, No Masses, No LAD, No Bruits Lungs-Clear to Auscultation Bilaterally, No Rales, No Rhonchi, No Wheezing, No Crepitus Chest-No S4, +S1, +S2, No S3, No Murmurs, No Rubs, No Gallops, No Ectopy Abdomen-Soft, Bowel Sounds Present, Non Tender, Non Distended, No Hepatomegaly, No Splenomegaly, No Palpable Masses, No Rebound, No Rigidity, No Guarding Musculoskeletal-Full Range of Motion Bilaterally, No CVAT Extremities-No Cyanosis, No Clubbing, Less Edema Nuero-Cranial Nerves II-XII grossly intact, Motor WNL, DTRs WNL, Strength WNL, Non Focal Psych-Normal Mood Results & Data Vital Signs (Past 12 Hours) Vital Signs Temp Pulse Pulse Resp BP BP Pulse Ox 02/17/19 08:01 72 02/17/19 04:05 36.8 C 73 16 142/87 H 93 02/16/19 23:27 37.1 C 77 18 143/87 H 92 02/16/19 22:20 77 (1) Bipolar disorder Active/Remission status: remission status unspecified Qualified Code(s): F31. 9 - Bipolar disorder, unspecified
[2019-02-17] MEDS: ATORVASTATIN 20 MG TAB PO SCH (09:19)
[2019-02-17] MEDS: SERTRALINE HCL 100 MG TABLET PO SCH (09:19)
[2019-02-17] MEDS: GABAPENTIN 300 MG CAP PO SCH ×3 (09:20→20:04)
[2019-02-17] MEDS: DIVALPROEX EXTENDED RELEASE 500 MG TAB PO SCH ×2 (09:20→20:03)
[2019-02-17] MEDS: ALBUT/IPRATROP 3MG/0.5MG NEB 3 ML VIAL NEB SCH ×3 (11:14→19:08)
[2019-02-17] MEDS: CHOLECALCIFEROL 1,000 UNITS TAB PO SCH (20:05)
[2019-02-18] MEDS: HEPARIN SOD 5,000 UNIT/0.5 ML VIAL SQ SCH ×3 (05:43→21:17)
[2019-02-18] MEDS: LEVOTHYROXINE SODIUM 75 MCG TABLET PO SCH (05:44)
--- NOTE | 2019-02-18 05:50 | Electrocardiogram Report ---
Test Reason : Blood Pressure : / mmHG Vent. Rate : 071 BPM Atrial Rate : 071 BPM P-R Int : 140 ms QRS Dur : 092 ms QT Int : 414 ms P-R-T Axes : 071 263 090 degrees QTc Int : 449 ms Normal sinus rhythm Right superior axis deviation Abnormal ECG When compared with ECG of 16-FEB-2019 06:33, T wave inversion now evident in Anterior leads Confirmed by Martinez Guerin ([id number]) on 02/18/2019 5:50:11 AM Referred By: REFERRED SELF Confirmed By:Martinez Guerin
[2019-02-18 06:30] LABS: Hematocrit (blood only) 47.8 % (42-52); Hemoglobin 16.9 g/dL (14.0-18.0); Mean Corpuscular Hemoglobin 33.7 pg (25-34); Mean Corpuscular Hgb Conc 35.4 g/dL (32-36); Mean Corpuscular Volume 95.4 fL (80-100); Platelet Count 187 K/uL (130-400); RDW Coefficient of Variation 13.8 % (11.5-14.5); RDW Standard Deviation 47.2 fL (36.4-46.3); Red Blood Count 5.01 M/uL (4.7-6.1); White Blood Count 5.71 K/uL (4.8-10.8)
[2019-02-18 07:11] LABS: BUN Creatinine Ratio 19.4 (10-20); Creatinine Clr Calc Pharmacy 61.2 ml/min; Est GFR (African American) 60.9; Est GFR (Non-African American) 52.5
[2019-02-18] MEDS: ALBUT/IPRATROP 3MG/0.5MG NEB 3 ML VIAL NEB SCH ×4 (07:16→20:04)
--- NOTE | 2019-02-18 07:40 | Hospitalist Progress Note ---
Date of Service February 18, 2019 Assessment & Plan (1) Hypertensive urgency: (2) Volume overload: (3) Hypoxia: This is a 68-year-old male who has significant past medical history of hypothyroidism, hyperlipidemia, CKD stage III, bipolar disorder type I, recurrent MDD, history of DVT LLE 03/2018 treated with xarelto, history of subdural hematoma 06/2018, dependent edema who presents to ED secondary to high blood pressure during psychiatric outpatient visit. In ED patient was found to be significantly hypertensive 174/118 and hypoxic requiring 2 L of O2. He was otherwise hemodynamically stable without signs or symptoms of cardiac instability. EKG revealed normal sinus rhythm 85 bpm, no significant ST or T wave changes. He received 20 mg IV Lasix in ED but continued to require O2; therefore, was recommended for admission. Patient with no prior history of hypertension, vitals reviewed at prior outpatient PCP visits and he has been normotensive. Volume overload, hypoxia and lower extremity edema likely brought on by uncontrolled hypertension. Possibly in setting of NSAID use with meloxicam. Lasix IV 80 mg x 1 given, Restart Lasix at 60 mg IV Q12, Nebs and Spirometry Another 2 step before DC, hopefully 02/19 Daily weights, monitor I's and O's Heart healthy low-sodium diet Echocardiogram EF 55-60% Padilla out Monitor blood pressure, high today, restart Lasix Off NSAIDs (4) Hyperlipidemia: Continue statin (5) CKD (chronic kidney disease), stage III: Monitor with diuresis (6) Compression fracture of lumbar vertebra: Recent diagnosis of L1 compression fracture, follows not Dr. Winters Placed on meloxicam 15 mg daily Hold secondary to hypertension avoid nsaids if able (7) Bipolar disorder: continue depakote and IM abilify (received q5 weeks, last given 02/15/2019) mood stable (8) Hypothyroidism: TSH 3.36 continue levothyroxine (9) Lymphadenopathy, mediastinal: Per CT: Mild mediastinal lymphadenopathy which has slightly progressed. This is nonspecific and could be due to an infectious/inflammatory process. A neoplastic process is not excluded. [address] follow-up recommended. Previously seen on xray 06/2018 follow up with PCP for repeat CT in 6 months (10) History of DVT (deep vein thrombosis): SQ Heparin, SCD/TEDS Disposition: DC 02/19, try to get him off O2, 2-Step, Nebs and Spirometry ordered, He's down 3 Kg, Went up today by 1 kg, resume Lasix Follow up: PCP Dr. Pedraza upon discharge ROS-No Headache, No Visual Changes, No Nausea, No Vomiting, No Fever, No Chills, No Neck Pain or Stiffness, No Chest Pain, No Palpitations, No SOB, No ADAMS, No Cough, No Sputum, No Wheezing, No Abdominal Pain, No Diarrhea, No Hematemesis, No Hemoptysis, No Unexpected Weight Loss, No Flank pain, No Melena, No Hematochezia, No Frequency, No Urgency, No Burning, No Hematuria, No Rashes, No Diaphoresis. Appetite is Normal Physical Exam Gen-AAO x 3, NAD, Afebrile, Obese Head-NCAT, EOMI, PERRLA, Anicteric Sclera, No Posterior Pharyngeal Erythema Neck-Supple, No JVD, No Thyromegaly, No Masses, No LAD, No Bruits Lungs-Clear to Auscultation Bilaterally, No Rales, No Rhonchi, No Wheezing, No Crepitus Chest-No S4, +S1, +S2, No S3, No Murmurs, No Rubs, No Gallops, No Ectopy Abdomen-Soft, Bowel Sounds Present, Non Tender, Non Distended, No Hepatomegaly, No Splenomegaly, No Palpable Masses, No Rebound, No Rigidity, No Guarding Musculoskeletal-Full Range of Motion Bilaterally, No CVAT Extremities-No Cyanosis, No Clubbing, Less Edema Nuero-Cranial Nerves II-XII grossly intact, Motor WNL, DTRs WNL, Strength WNL, Non Focal Psych-Normal Mood Results & Data Vital Signs (Past 12 Hours) Vital Signs Temp Pulse Pulse Pulse Resp BP Pulse Ox 02/18/19 07:21 77 02/18/19 07:17 75 18 94 02/18/19 03:55 36.7 C 84 18 170/95 H 93 02/17/19 23:06 36.6 C 78 18 133/82 92 02/17/19 22:22 80 02/17/19 19:48 36.8 C 86 18 144/76 H 90 (1) Bipolar disorder Active/Remission status: remission status unspecified Qualified Code(s): F31.9 - Bipolar disorder, unspecified
[2019-02-18] MEDS: FUROSEMIDE 60 MG in SYRINGE 0 ML IV SCH ×2 (08:08→20:21)
[2019-02-18] MEDS: GABAPENTIN 300 MG CAP PO SCH ×3 (08:09→20:22)
[2019-02-18] MEDS: SERTRALINE HCL 100 MG TABLET PO SCH (08:09)
[2019-02-18] MEDS: ATORVASTATIN 20 MG TAB PO SCH (08:09)
[2019-02-18] MEDS: DIVALPROEX EXTENDED RELEASE 500 MG TAB PO SCH ×2 (08:10→20:22)
[2019-02-18] MEDS: ACETAMINOPHEN 325 MG TAB PO PRN (14:50)
[2019-02-18] MEDS: CHOLECALCIFEROL 1,000 UNITS TAB PO SCH (20:22)
--- NOTE | 2019-02-18 21:54 | Electrocardiogram Report ---
Test Reason : Blood Pressure : / mmHG Vent. Rate : 079 BPM Atrial Rate : 079 BPM P-R Int : 142 ms QRS Dur : 098 ms QT Int : 418 ms P-R-T Axes : 073 258 073 degrees QTc Int : 479 ms Normal sinus rhythm Right superior axis deviation Abnormal ECG When compared with ECG of 17-FEB-2019 07:05, T wave abnormality has improved in anterior and inferior leads Confirmed by Martinez Guerin ([id number]) on 02/18/2019 9:54:21 PM Referred By: REFERRED SELF Confirmed By:Martinez Guerin
[2019-02-19] MEDS: LEVOTHYROXINE SODIUM 75 MCG TABLET PO SCH (05:39)
[2019-02-19] MEDS: HEPARIN SOD 5,000 UNIT/0.5 ML VIAL SQ SCH ×3 (05:39→20:22)
[2019-02-19 06:25] LABS: Hematocrit (blood only) 49.1 % (42-52); Hemoglobin 17.2 g/dL (14.0-18.0); Mean Corpuscular Hemoglobin 33.7 pg (25-34); Mean Corpuscular Volume 96.3 fL (80-100); Mean Platelet Volume 9.2 fL (7.4-10.4); Platelet Count 209 K/uL (130-400); RDW Standard Deviation 49.3 fL (36.4-46.3)
[2019-02-19 07:00] LABS: BUN Creatinine Ratio 19.5 (10-20); Calcium 9.7 mg/dl (8.5-10.1); Creatinine Clr Calc Pharmacy 49.4 ml/min; Est GFR (African American) 47.3; Est GFR (Non-African American) 40.8; Potassium 4.4 mmol/L (3.5-5.1)
[2019-02-19] MEDS: ALBUT/IPRATROP 3MG/0.5MG NEB 3 ML VIAL NEB SCH ×4 (07:17→19:56)
[2019-02-19] MEDS: GABAPENTIN 300 MG CAP PO SCH (08:31)
[2019-02-19] MEDS: SERTRALINE HCL 100 MG TABLET PO SCH (08:32)
[2019-02-19] MEDS: ATORVASTATIN 20 MG TAB PO SCH (08:32)
[2019-02-19] MEDS: DIVALPROEX EXTENDED RELEASE 500 MG TAB PO SCH ×2 (08:33→20:21)
[2019-02-19] MEDS ORDERED: GABAPENTIN 100 MG CAP PO SCH (14:00)
[2019-02-19] MEDS: GABAPENTIN 100 MG CAP PO SCH ×2 (14:08→20:21)
--- NOTE | 2019-02-19 18:31 | Hospitalist Progress Note ---
Date of Service February 19, 2019 Assessment & Plan (1) Hypertensive urgency: (2) Volume overload: (3) Hypoxia: Patient is a 68 yr male with H/O Hypothyroidism, hyperlipidemia, CKD stage III, bipolar disorder type I, recurrent MDD, history of DVT LLE 03/2018 treated with xarelto, history of subdural hematoma 06/2018, dependent edema who presents to ED secondary to high blood pressure during psychiatric outpatient visit. Hypertensive urgency Volume overload Likely Acute diastolic CHF (acute HFpEF) in setting of uncontrolled HTN and CKD: POA Gabapentin (recently increased from 200 to 300 mg 3 times daily) and Meloxicam could be contributing to pedal edema --CTA:No evidence for pulmonary embolus with limitations as described above. Mild mediastinal lymphadenopathy which has slightly progressed. This is nonspecific and could be due to an infectious/inflammatory process. A neoplastic process is not excluded. [address] follow-up recommended. A subacute to chronic mild superior endplate compression fracture at L1 which demonstrates 3 mm of retropulsion and moderate to severe central canal narrowing at this level. --ECHO:Mild Concentric LVH, EF: 55-60%, Grade I diastolic dysfunction --Blood pressure variable--currently within normal limit --Received IV Lasix --Decrease gabapentin back to 200 mg 3 times daily --Minimize meloxicam use as able --Monitor I's and O's, daily weight, volume status --Will need cardiology evaluation as outpatient --Wean off supplemental oxygen as able --2 Step prior to discharge --Consider starting on antihypertensives if recurrence of elevated blood pressure (4) Hyperlipidemia: Continue statin (5) CKD (chronic kidney disease), stage III: OTIS on CKD III Baseline Cr 13.-1.4 Cr elevation due to diuretics Monitor renal function Avoid nephrotoxic agents as able Hold diuretics for now (6) Compression fracture of lumbar vertebra: Recent diagnosis of L1 compression fracture, follows not Dr. Winters Placed on meloxicam 15 mg daily Avoid nsaids as able PT/OT (7) Bipolar disorder: continue depakote and IM abilify (received q5 weeks, last given 02/15/2019) mood stable (8) Hypothyroidism: TSH 3.36 continue levothyroxine (9) Lymphadenopathy, mediastinal: Per CT: Mild mediastinal lymphadenopathy which has slightly progressed. This is nonspecific and could be due to an infectious/inflammatory process. A neoplastic process is not excluded. [address] follow-up recommended. Previously seen on xray 06/2018 Follow up with PCP for repeat CT in 6 months (10) History of DVT (deep vein thrombosis): SQ Heparin Disposition: PT/OT prior to discharge Subjective Patient is seen and examined at bedside States feeling much better today Denies any chest pain, shortness of breath, dizziness, nausea, abdominal pain Creatinine level slightly worsened today Still requiring minimal supplemental oxygen to maintain saturations Review of Systems Review of Systems: All systems reviewed & are unremarkable except as noted in HPI & below Physical Exam Physical Exam: Physical Exam: Vitals signs as noted above General Appearance:Obese, no apparent distress Head: normocephalic, Atraumatic Eyes: normal inspection, EOMI Neck: supple, Trachea midline Respiratory/Chest: Normal breath sounds, CTA Cardiovascular: S1, S2, No murmur Abdomen/GI:Soft, Non tender, Bowel sounds present Extremities/Musculoskelatal:normal inspection, Trace edema Neurologic/Psych:AAOX3, grossly no focal neurological deficits Skin: normal color, warm Results & Data Vital Signs (Past 12 Hours) Vital Signs Temp Pulse Pulse Pulse Resp BP BP 02/19/19 16:19 84 18 02/19/19 14:53 36.5 C 80 18 116/78 02/19/19 11:17 76 16 02/19/19 08:40 36.5 C 82 18 125/80 02/19/19 07:17 86 14 02/19/19 07:00 74 Pulse Ox 02/19/19 16:19 95 02/19/19 14:53 93 02/19/19 11:17 93 02/19/19 08:40 91 02/19/19 07:17 95 02/19/19 07:00 Laboratory Results Short CBC 02/19/19 Range/Units 05:42 WBC 6.40 (4.8-10.8) K/uL Hgb 17.2 (14.0-18.0) g/dL Hct 49.1 (42-52) % Plt Count 209 (130-400) K/uL BMP 02/19/19 05:42 Sodium 142 Potassium 4.4 Chloride 106 Carbon Dioxide 30 BUN 33 H Creatinine 1.70 H D Glucose 106 H Calcium 9.7 (1) Bipolar disorder Active/Remission status: remission status unspecified Qualified Code(s): F31.9 - Bipolar disorder, unspecified
[2019-02-19] MEDS: CHOLECALCIFEROL 1,000 UNITS TAB PO SCH (20:22)
[2019-02-20] MEDS: LEVOTHYROXINE SODIUM 75 MCG TABLET PO SCH (06:14)
[2019-02-20] MEDS: HEPARIN SOD 5,000 UNIT/0.5 ML VIAL SQ SCH ×2 (06:14→14:07)
[2019-02-20 07:11] LABS: BUN Creatinine Ratio 24.6 (10-20); Calcium 9.1 mg/dl (8.5-10.1); Creatinine Clr Calc Pharmacy 59.3 ml/min; Est GFR (African American) 58.8; Est GFR (Non-African American) 50.7; Potassium 4.5 mmol/L (3.5-5.1)
[2019-02-20] MEDS: ALBUT/IPRATROP 3MG/0.5MG NEB 3 ML VIAL NEB SCH (07:17)
[2019-02-20] MEDS ORDERED: FUROSEMIDE 20 MG TAB PO SCH (09:00)
[2019-02-20] MEDS: ATORVASTATIN 20 MG TAB PO SCH (09:18)
[2019-02-20] MEDS: DIVALPROEX EXTENDED RELEASE 500 MG TAB PO SCH (09:18)
[2019-02-20] MEDS: SERTRALINE HCL 100 MG TABLET PO SCH (09:19)
[2019-02-20] MEDS: GABAPENTIN 100 MG CAP PO SCH ×2 (09:19→14:07)
[2019-02-20] MEDS ORDERED: ALBUT/IPRATROP 3MG/0.5MG NEB 3 ML VIAL NEB PRN (09:31)
--- NOTE | 2019-02-20 13:56 | Hospitalist Progress Note ---
Date of Service February 20, 2019 Assessment & Plan (1) Hypertensive urgency: (2) Volume overload: (3) Hypoxia: Patient is a 68 yr male with H/O Hypothyroidism, hyperlipidemia, CKD stage III, bipolar disorder type I, recurrent MDD, history of DVT LLE 03/2018 treated with xarelto, history of subdural hematoma 06/2018, dependent edema who presents to ED secondary to high blood pressure during psychiatric outpatient visit. Hypertensive urgency Volume overload Likely Acute diastolic CHF (acute HFpEF) in setting of uncontrolled HTN and CKD: POA Gabapentin (recently increased from 200 to 300 mg 3 times daily) and Meloxicam could be contributing to pedal edema --CTA:No evidence for pulmonary embolus with limitations as described above. Mild mediastinal lymphadenopathy which has slightly progressed. This is nonspecific and could be due to an infectious/inflammatory process. A neoplastic process is not excluded. [address] follow-up recommended. A subacute to chronic mild superior endplate compression fracture at L1 which demonstrates 3 mm of retropulsion and moderate to severe central canal narrowing at this level. --ECHO:Mild Concentric LVH, EF: 55-60%, Grade I diastolic dysfunction --Blood pressure variable--Started on low dose Lisinopril as has LVH on ECHO and has CKD --Received IV Lasix --Decrease gabapentin back to 200 mg 3 times daily --Minimize meloxicam use as able --Monitor I's and O's, daily weight, volume status --Will need cardiology evaluation as outpatient --2 Step: requires 2 liters with rest and with activity --Further adjustment of BP meds as outpatient (4) Hyperlipidemia: Continue statin (5) CKD (chronic kidney disease), stage III: OTIS on CKD III Baseline Cr 13.-1.4 Cr elevation due to diuretics Monitor renal function Avoid nephrotoxic agents as able Cr back to baseline (6) Compression fracture of lumbar vertebra: Recent diagnosis of L1 compression fracture, follows not Dr. Winters Was on meloxicam 15 mg daily Avoid nsaids as able PT/OT (7) Bipolar disorder: continue depakote and IM abilify (received q5 weeks, last given 02/15/2019) mood stable (8) Hypothyroidism: TSH 3.36 continue levothyroxine (9) Lymphadenopathy, mediastinal: Per CT: Mild mediastinal lymphadenopathy which has slightly progressed. This is nonspecific and could be due to an infectious/inflammatory process. A neoplastic process is not excluded. [address] follow-up recommended. Previously seen on xray 06/2018 Follow up with PCP for repeat CT in 6 months (10) History of DVT (deep vein thrombosis): SQ Heparin Disposition: PT/OT eval done Plan to discharge back to [facility] Subjective Patient is seen and examined at bedside No new complaints Denies any chest pain, shortness of breath, dizziness, nausea, abdominal pain Creatinine back to baseline 2 step today Review of Systems Review of Systems: All systems reviewed & are unremarkable except as noted in HPI & below Physical Exam Physical Exam: Physical Exam: Vitals signs as noted above General Appearance:Obese, no apparent distress Head: normocephalic, Atraumatic Eyes: normal inspection, EOMI Neck: supple, Trachea midline Respiratory/Chest: Normal breath sounds, CTA Cardiovascular: S1, S2, No murmur Abdomen/GI:Soft, Non tender, Bowel sounds present Extremities/Musculoskelatal:normal inspection, Trace edema Neurologic/Psych:AAOX3, grossly no focal neurological deficits Skin: normal color, warm Results & Data Vital Signs (Past 12 Hours) Vital Signs Temp Pulse Pulse Pulse Pulse Pulse Resp 02/20/19 11:13 36.8 C 79 18 02/20/19 09:14 88 88 88 02/20/19 07:29 36.4 C L 76 18 02/20/19 07:21 78 02/20/19 07:18 71 16 02/20/19 03:14 36.7 C 81 18 Resp BP BP Pulse Ox Pulse Ox Pulse Ox Pulse Ox 02/20/19 11:13 143/93 H 93 02/20/19 09:14 18 95 96 86 L 02/20/19 07:29 125/81 94 02/20/19 07:21 02/20/19 07:18 93 02/20/19 03:14 169/84 H 91 Laboratory Results BMP 02/20/19 06:26 Sodium 142 Potassium 4.5 Chloride 108 H Carbon Dioxide 31 BUN 35 H Creatinine 1.42 H Glucose 101 H Calcium 9.1 (1) Bipolar disorder Active/Remission status: remission status unspecified Qualified Code(s): F31.9 - Bipolar disorder, unspecified
--- NOTE | 2019-02-20 14:30 | Discharge Summary ---
Date of Service February 20, 2019 Admission HPI Per Admitting Provider This is a 68-year-old male who has significant past medical history of hypothyroidism, hyperlipidemia, CKD stage III, bipolar disorder type I, recurrent MDD, history of DVT LLE 03/2018 treated with xarelto, history of subdural hematoma 06/2018, dependent edema who presents to ED secondary to high blood pressure during psychiatric outpatient visit. He was seen in the outpatient setting yesterday by psychiatrist who noted blood pressure to be 187/116. He is currently residing at [facility] who called his PCP and recommended him to be seen in ED. He denies prior history of hypertension. He currently denies any fever, chills, sweats, lightheadedness, dizziness, chest pain, shortness of breath at rest, palpitations, cough, hemoptysis, nausea, vomiting, diarrhea, abdominal pain. He does list increased lower extremity edema and mild abdominal distention. He denies any difficulty with urination but currently appears incontinent. Of significance patient recently diagnosed with L1 compression fracture by Dr. Winters on 02/02/2019 in which he was placed on meloxicam 15 mg daily. He admits to taking this daily. He denies any prior history of heart attack or CHF. Currently resides at [facility]. He is a non-smoker nondrinker. Ambulates with cane. Mother and father are both secondary to, "old age." He does have son that he is estranged from, unknown family history. In ED patient was found to be significantly hypertensive 174/118 and hypoxic requiring 2 L of O2. He was otherwise hemodynamically stable without signs or symptoms of cardiac instability. EKG revealed normal sinus rhythm 85 bpm, no significant ST or T wave changes. He received 20 mg IV Lasix in ED but continued to require O2; therefore, was recommended for admission. Admission Exam Per Admitting Provider Physical Exam Physical Exam: Constitutional: WD/WN, M, vitals as above, NAD, sitting up in bed, pleasant, conversing easily, on O2 via NC Head: Normocephalic, Atraumatic Eyes: PERRL, conjunctivae normal, anicteric sclerae ENMT: external ear and nose normal, oropharynx moist mucous membranes Neck: trachea midline, no thyromegaly normal visual inspection Respiratory: normal respiratory effort, on O2 via NC, lungs clear to auscultation, no wheeze, rales, rhonchi. Normal insp/exp effort, no accessory muscle use Cardiovascular: RRR, no murmur, b/l pre tibial +2 edema, + pedal edema Vessels: no JVD or carotid bruit Chest: normal inspection of chest Abdomen: normal bowel sounds, soft, nontender, no hepatosplenomegaly Musculoskeletal: no cyanosis or clubbing, extremities motor strength 5/5 Skin: no rashes, warm and dry normal turgor Neurologic: PERRL, EOMI, accommodation nl, no face palsy, no dysarthria CN's II-XI intact bilaterally and moves all extremities Psychiatric: A+Ox3, euthymic affect Lymphatic: no cervical or axillary lymphadenopathy : deferred Principal Diagnosis Hypertensive Urgency Acute diastolic heart failure Hypoxia Discharge Data Allergies Allergy/AdvReac Type Severity Reaction Status Date / Time No Known Allergies Allergy Verified 02/16/19 07:24 Consultations 02/16/19 09:42 ED Decision to Admit Stat 02/16/19 14:13 Consult Case Management - Discharge Planning Routine Procedures Performed CTA: 1. No evidence for pulmonary embolus with limitations as described above. 2. Mild mediastinal lymphadenopathy which has slightly progressed. This is nonspecific and could be due to an infectious/inflammatory process. A neoplastic process is not excluded. [address] follow-up recommended. 3. A subacute to chronic mild superior endplate compression fracture at L1 which demonstrates 3 mm of retropulsion and moderate to severe central canal narrowing at this level. 4. Additional findings as described above. Ordered Studies 02/16/19 08:18 CT angio chest PE protocol Stat Hospital Course (1) Hypertensive urgency: (2) Volume overload: (3) Hypoxia: Patient is a 68 yr male with H/O Hypothyroidism, hyperlipidemia, CKD stage III, bipolar disorder type I, recurrent MDD, history of DVT LLE 03/2018 treated with xarelto, history of subdural hematoma 06/2018, dependent edema who presents to ED secondary to high blood pressure during psychiatric outpatient visit. Hypertensive urgency Volume overload Likely Acute diastolic CHF (acute HFpEF) in setting of uncontrolled HTN and CKD: POA Gabapentin (recently increased from 200 to 300 mg 3 times daily) and Meloxicam could be contributing to pedal edema --CTA:No evidence for pulmonary embolus with limitations as described above. Mild mediastinal lymphadenopathy which has slightly progressed. This is nonspecific and could be due to an infectious/inflammatory process. A neoplastic process is not excluded. [address] follow-up recommended. A subacute to chronic mild superior endplate compression fracture at L1 which demonstrates 3 mm of retropulsion and moderate to severe central canal narrowing at this level. --ECHO:Mild Concentric LVH, EF: 55-60%, Grade I diastolic dysfunction --Blood pressure variable--Started on low dose Lisinopril as has LVH on ECHO and has CKD --Received IV Lasix --Decrease gabapentin back to 200 mg 3 times daily --Minimize meloxicam use as able --Monitor I's and O's, daily weight, volume status --Will need cardiology evaluation as outpatient --2 Step: requires 2 liters with rest and with activity --Further adjustment of BP meds as outpatient (4) Hyperlipidemia: Continue statin (5) CKD (chronic kidney disease), stage III: OTIS on CKD III Baseline Cr 13.-1.4 Cr elevation due to diuretics Monitor renal function Avoid nephrotoxic agents as able Cr back to baseline (6) Compression fracture of lumbar vertebra: Recent diagnosis of L1 compression fracture, follows not Dr. Winters Was on meloxicam 15 mg daily Avoid nsaids as able PT/OT (7) Bipolar disorder: continue depakote and IM abilify (received q5 weeks, last given 02/15/2019) mood stable (8) Hypothyroidism: TSH 3.36 continue levothyroxine (9) Lymphadenopathy, mediastinal: Per CT: Mild mediastinal lymphadenopathy which has slightly progressed. This is nonspecific and could be due to an infectious/inflammatory process. A neoplastic process is not excluded. [address] follow-up recommended. Previously seen on xray 06/2018 Follow up with PCP for repeat CT in 6 months (10) History of DVT (deep vein thrombosis): SQ Heparin Disposition: PT/OT eval done Plan to discharge back to [facility] Total Time Total Time Spent Total Time Spent (In Minutes): 40 minutes Total Time Includes: Examination of the Patient, Discharge Planning, Medication Reconciliation, Communication With Other Providers and Other Discharge Plan Discharge Items Patient Disposition: Home - Self-Care Reason For Visit: HTN URGENCY,VOLUME OVERLOAD Discharge Diagnosis: Hypertensive Urgency Acute diastolic heart failure Hypoxia Activity: Resume your previous activity Lifting: Gradually increase as tolerated Exercise/Sports: Gradually increase as tolerated Non-emergency contact: Primary Care Provider and Sign Builder Call non-emergency contact if: you have any medication questions, your symptoms worsen, your pain is not controlled, your pain is worsening, your pain is unusual for you, your pain is concerning for you and you have a fever Follow-up/Referrals: Elaina Xavier DO [Primary Care Provider] - 02/26/19 10:45 am Diet: Heart Healthy and Low Sodium (2gm) Addtl Attending Provider Instructions: Follow-up with your primary care physician Dr. Xavier on February 26, 2019 at 10:45AM Follow-up with your clinical program director Dr. Rosas on Feb 22 at 10:15 AM Follow-up with your residential housekeeper as instructed for further evaluation and management of mediastinal lymph node as advised Medication Changes: Gabapentin is decreased to 200 mg 3 times daily Meloxicam is discontinued secondary to potential side effects He was started on lisinopril 2.5 mg daily for Hypertension. Discussed with the physician for further adjustment of your medications to control your blood press ure You are started on Lasix 20 mg daily Use oxygen 2 L via nasal cannula at rest and with activity as instructed. Seek immediate medical attention if your symptoms reoccur or worsen Call your Primary Care doctor if any of the following symptoms or problems start or get worse: * Shortness of breath or difficulty breathing * Wake up at night short of breath * Chest pain * Cough * Swelling of your hands, feet, or legs * More fatigued or tired with your normal activity * Palpitations - sudden fast heart beats WEIGHT * Weigh yourself every morning after using the bathroom. * Use the same scale. * Wear the same amount of clothing. * Write your weight down on a chart. * Call your Primary Care doctor if you gain more than 2-3 pounds in 1-2 days. MEDICATIONS * Use this discharge instruction sheet for medication instructions. * Take your medications at the time your doctor ordered. * Do not skip a dose of your medicines. * If you miss a dose of medicine, take it as soon as possible, but DO NOT DOUBLE A DOSE. * Read your medicine information when you get home. * Know all of the side effects of your medicine. If in doubt, ask your pharmacist * Call your Primary Care doctor's office if you have any side effects. * Be sure all of your doctors know what medicine and herbs you take (including cold, flu, and herbal medicine). Take the following with you to your follow-up doctor appointments: * Weight Chart * Medication List * List of questions Do not drink excessive alcohol, beer or wine. Pending Studies at Discharge: No Stand-Alone Forms: My [facility], Smoking Cessation Medications and DC Order Prescriptions: New furosemide 20 mg Tablet 20 mg PO QAM 30 Days Qty: 30 RF: 0 lisinopril 2.5 mg Tablet 2.5 mg PO QAM Qty: 30 RF: 0 gabapentin 100 mg Capsule 200 mg PO TID 30 Days Qty: 180 RF: 0 Continued Abilify Maintena 400 mg suspension,extended rel recon 400 mg IM DIRECTED RF: 0 divalproex 500 mg tablet extended release 24 hr 500 mg PO QAM RF: 0 divalproex 500 mg Tablet Extended Release 24 Hr 1,500 mg PO HS RF: 0 atorvastatin 20 mg tablet 20 mg PO QAM RF: 0 sertraline 100 mg tablet 200 mg PO QAM RF: 0 levothyroxine 75 mcg tablet 75 mcg PO QAM RF: 0 cholecalciferol (vitamin D3) [Vitamin D3] 1,000 unit Capsule 1,000 unit PO HS RF: 0 acetaminophen 325 mg Tablet 650 mg PO BID PRN (Reason: Pain) RF: 0 Discontinued meloxicam 15 mg tablet 15 mg PO DAILY Qty: 30 RF: 2 gabapentin 300 mg capsule 300 mg PO TID RF: 0 Discharge Orders: Discharge Order (Routine); Ordered 02/20/19 Ordered By: Matthew Hooks Admission Data Admit Date/Time: 02/16/19 10:43 Attending Provider: Matthew Hooks Admit Provider: Omkar Akers Primary Care Provider: Elaina Xavier Other Providers: Omkar Akers Other Interventions: Discharge Summary Assessment (RN) Last Done: 02/20/19 15:49 DC Date/Time DO NOT enter until pt leaves facility: 02/20/19 16:39
== END 2019-02-20 16:39 | disposition home or self-care (01) | DRG 291 ==
LOC: ED 06:29 → 2N 10:43 → SUATTDRO 10:43 → 2N 13:52

== ENCOUNTER 2021-05-05 13:53 | Inpatient (IN) ==
[2021-05-05 14:28] LABS: Basophils % (auto) 0.2 %; Eosinophils % (auto) 0.7 %; Hematocrit (blood only) 49.9 % (42-52); Hemoglobin 16.4 g/dL (14.0-18.0); Immature Granulocytes % (auto) 0.2 %; Lymphocytes # (auto) 1.53 K/uL (1.2-3.4); Lymphocytes % (auto) 26.2 %; Mean Corpuscular Hemoglobin 33.3 pg (25-34); Mean Corpuscular Hgb Conc 32.9 g/dL (32-36); Mean Corpuscular Volume 101.2 fL (80-100); Mean Platelet Volume 10.3 fL (7.4-10.4); Monocytes # (auto) 0.67 K/uL (0.11-0.59); Monocytes % (auto) 11.5 %; Neutrophils # (auto) 3.58 K/uL (1.4-6.5); Neutrophils % (auto) 61.2 %; Platelet Count 194 K/uL (130-400); RDW Coefficient of Variation 15.2 % (11.5-14.5); Red Blood Count 4.93 M/uL (4.7-6.1); White Blood Count 5.84 K/uL (4.8-10.8)
[2021-05-05 14:29] LABS: Basophils # (auto) 0.01 K/uL (0-0.2); Eosinophils # (auto) 0.04 K/uL (0-0.5); Immature Granulocytes # (auto) 0.01 K/uL (0.00-0.02)
--- NOTE | 2021-05-05 14:31 | Emergency Department Note ---
Impression & Plan Respiratory failure, Edema of lower extremity, Acute respiratory acidosis, Hypoxia, Elevated troponin I level, Abnormal EKG ED Provider Note NAME: CARRIE VENEGAS AGE: 71 SEX: M : 1950 ARRIVES VIA: Ambulance INFORMANT: Patient, EMS ED PROVIDER(S): Melvin Carmona DO CHIEF COMPLAINT: Shortness of breath HPI: The patient is a 71-year-old male presented to the emergency department by ambulance from the [facility] in [facility] for evaluation of shortness of breath. The patient is unable to give much history. He is very obtunded and was found to be hypoxic prior to arrival. It is unclear if the patient suffered any trauma. He denies having any nausea or vomiting. He denies having any chest pain. He states that he was being evaluated for shortness of breath. He denies having any cough. He denies having any fever or hemoptysis. The patient states that he is not missed any of his medications. He does have chronic breathing problems including pulmonary hypertension CHF as well as hypoxemia. He also had Covid virus infection in the past. I was called to see the patient immediately as he was made a priority patient because of hypoxia. ROS: See above HPI for pertinent positives & negatives. A total of 10 systems reviewed and were otherwise negative. PAST MEDICAL HISTORY: See Below PAST SURGICAL HISTORY: See Below FAMILY HISTORY: See Below SOCIAL HISTORY: See Below HOME MEDICATIONS: See Below ALLERGIES: See Below VITALS: See Below PHYSICAL EXAMINATION: GENERAL: The patient is obtunded. He is awake to loud verbal commands. He does follow commands slowly. EYES: The conjunctivae are clear. The pupils are round and reactive. EARS, NOSE, MOUTH AND THROAT: The nose is without any evidence of any deformity. Mucous membranes are dry. NECK: The neck is nontender and supple. RESPIRATORY: Shallow and ineffective respirations were noted. The patient has diminished breath sounds noted throughout. There is no specific wheezing noted. CARDIOVASCULAR: Regular rate and rhythm noted there no murmurs rubs or gallops normal S1 normal S2. GASTROINTESTINAL: The abdomen is soft. Abdomen is nontender. MUSCULOSKELETAL/EXTREMITIES: There is no evidence of gross deformity full range of motion is noted in the hips and shoulders. SKIN: Skin was warm and dry. Trace pedal edema was noted bilaterally. NEUROLOGIC: Patient is awake to verbal commands. He is oriented to person place but not time. Strength was symmetric. The patient falls asleep easily. MEDICAL DECISION MAKING: Patient is a 71-year-old male who presented to the emergency department for an evaluation of altered mental status and difficulty breathing. The patient states he has been having difficulty breathing for the last few days. He presented to his primary care physician's office and was found to be obtunded and hypoxic. He was sent to the emergency department via ALS. The patient was found to be hypoxic upon arrival and was made a priority patient. History was difficult to obtain because of the patient's altered mental status. The patient was treated with a small fluid bolus and BiPAP in the emergency department. He was reevaluated multiple times. I discussed the patient's laboratory and radiographic studies with him. I have also discussed his case with the on-call [facility]. They have agreed to evaluate the patient in the emergency department for further management and disposition. Triage Nursing notes reviewed. Prior medical records reviewed Vital Signs: reviewed and remarkable for hypoxia. Differential diagnosis: Reactive airway disease, pneumonia, pneumothorax, COPD, CHF, infections, cardiac ischemia, pulmonary embolism, musculoskeletal, gastrointestinal, as well as other pathologies. ER treatment provided: See below Diagnostics interpreted by me: ECG: EKG was obtained in the emergency department. My interpretation is normal sinus rhythm at 95 bpm. There is no ectopy noted. Diffuse ST segment abnormalities were noted in the anterior leads. This was compared to a tracing from November 14, 2019. The ST segment abnormalities are worsened compared to the previous tracing. Cardiac Monitoring: An order was placed for continuous cardiac monitoring. The monitor shows a rate of 94 bpm with sinus rhythm. Laboratory studies: As stated above and show below. Imaging studies: See below Consultation(s): Chevy this case with Grisel who is on-call for the [facility] group. ED COURSE: Procedures: none Critical Care: I have personally spent greater than 55 minutes of critical care time in the direct management of this patient. This includes bedside care, interpretation of diagnostic studies, and testing, discussion with consultants, patient, and family members, and other required patient management activities. This 55 minutes is in excess of all separately billable procedures. Past Med/Surg History Medical History Atrial septal aneurysm per [facility] records Bipolar disorder CKD (chronic kidney disease), stage III Cor pulmonale COVID-19 virus infection Dizziness History of COVID-19 ~11/2019 per records. History of DVT (deep vein thrombosis) per [facility] records History of electroconvulsive therapy History of Helicobacter pylori infection History of traumatic brain injury History of small right tentorial SDH 06/2018 while on Xarelto for a provoked DVT. Repeat CT scan in 07/2018 revealed resolution. Hx of pulmonary hypertension per [facility] records Hyperlipidemia Hypertension Hypothyroidism Hypoxia No pertinent family history Pedal edema Pneumonia hx of covid pneumonia per records Seizure hx of seizure disorder per [facility] records Severe pulmonary hypertension Vitiligo Surgical History History of colonoscopy with polypectomy History of esophagogastroduodenoscopy (EGD) Positive H. 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 Required: No Beliefs That Will Affect Care: None marital status: Unknown Current Living Situation: Personal Care Facility Current Living Situation Comment: [facility] current occupational status: retired current occupation: [employer] for 35.5 yrs Other Information That Helps Us Care for You: No Feels Safe at Home: Yes Safety Concerns: Feels Safe At This Time Assistive Devices: Oxygen - Continuous and Walker Assistive Devices Comment: Oxygen concentrator with patient Allergies Allergies Allergy/AdvReac Type Severity Reaction Status Date / Time No Known Allergies Allergy Verified 05/05/21 16:21 Home Meds Home Medications Medication Instructions Recorded Confirmed levothyroxine 75 mcg tablet 75 mcg PO DAILY 06/24/18 05/05/21 aripiprazole 400 mg intramuscular 400 mg IM DIRECTED 02/16/19 05/05/21 suspension,extended release (Abilify Maintena) divalproex 500 mg tablet,extended 1,000 mg PO QAM 02/16/19 05/05/21 release 24 hr divalproex 500 mg tablet,extended 1,500 mg PO HS 02/16/19 05/05/21 release 24 hr acetaminophen 500 mg tablet 1,000 mg PO DAILY 11/15/19 05/05/21 cholecalciferol (vitamin D3) 50 50 mcg PO DAILY 11/15/19 05/05/21 mcg (2,000 unit) tablet cyanocobalamin (vitamin B-12) 1,000 mcg PO DAILY 11/15/19 05/05/21 1,000 mcg tablet finasteride 5 mg tablet 5 mg PO QAM 11/15/19 05/05/21 gabapentin 100 mg capsule 200 mg PO TID 11/15/19 05/05/21 melatonin 5 mg tablet 5 mg PO HS 11/15/19 05/05/21 menthol 4 % topical gel (Biofreeze 1 applic TOPICAL TID PRN 11/15/19 05/05/21 (menthol)) mirtazapine 7.5 mg tablet 7.5 mg PO QPM 11/15/19 05/05/21 multivitamin 1 tab PO DAILY 11/15/19 05/05/21 tamsulosin 0.4 mg capsule 0.4 mg PO DAILY 11/15/19 05/05/21 lisinopril 2.5 mg tablet 2.5 mg PO DAILY 10/31/20 05/05/21 atorvastatin 40 mg tablet 40 mg PO DAILY 05/05/21 05/05/21 camphor-methyl salicylate-menthol 1 patch TOPICAL DAILY PRN 05/05/21 05/05/21 topical patch penicillin V potassium 500 mg 500 mg PO Q8 05/05/21 05/05/21 tablet torsemide 20 mg tablet 20 mg PO BID 05/05/21 05/05/21 Results & Data (ED) Vital Signs Vital Signs - 24 hr 05/05/21 14:00 05/05/21 14:01 05/05/21 14:08 Temperature 36.7 C 36.9 C Temperature Source Oral Oral Pulse Rate 94 H Pulse Rate [Apical] 90 Pulse Rate from SpO2 Sensor Pulse Rhythm [Apical] Regular Pulse Strength [Apical] Normal Respiratory Rate 20 18 Respiratory Effort / Characteristics Non-Labored Spontaneous Respiratory Depth Normal Normal Respiratory Pattern Regular Blood Pressure 136/70 Blood Pressure [Left Arm] 127/90 Blood Pressure Mean 92 Blood Pressure Mean [Left Arm] 102 Blood Pressure Position [Left Arm] Pulse Oximetry 65 L 95 Oxygen Delivery Method Room Air Oxymask BiPAP Oxygen Flow Rate 15 Fraction of Inspired Oxygen Sepsis Recent Fever Within 48 Hours No Sepsis New/Unexplained Change in Mental Status No Sepsis Action Taken by Nursing No Action Required Pulse Oximetry Post Tiitration 95 05/05/21 14:24 05/05/21 14:58 05/05/21 15:00 Temperature Temperature Source Pulse Rate 94 H 93 H 93 H Pulse Rate [Apical] Pulse Rate from SpO2 Sensor 93 H 93 H Pulse Rhythm [Apical] Pulse Strength [Apical] Respiratory Rate 22 22 21 Respiratory Effort / Characteristics Non-Labored Spontaneous Respiratory Depth Normal Respiratory Pattern Regular Blood Pressure 142/89 H Blood Pressure [Left Arm] Blood Pressure Mean 106 Blood Pressure Mean [Left Arm] Blood Pressure Position [Left Arm] Pulse Oximetry 94 93 91 Oxygen Delivery Method Oxygen Flow Rate Fraction of Inspired Oxygen 50 Sepsis Recent Fever Within 48 Hours Sepsis New/Unexplained Change in Mental Status Sepsis Action Taken by Nursing Pulse Oximetry Post Tiitration 05/05/21 15:16 05/05/21 15:30 05/05/21 16:00 Temperature Temperature Source Pulse Rate 91 H 91 H Pulse Rate [Apical] Pulse Rate from SpO2 Sensor 92 H 91 H Pulse Rhythm [Apical] Pulse Strength [Apical] Respiratory Rate 16 16 19 Respiratory Effort / Characteristics Non-Labored Respiratory Depth Respiratory Pattern Blood Pressure Blood Pressure [Left Arm] Blood Pressure Mean Blood Pressure Mean [Left Arm] Blood Pressure Position [Left Arm] Pulse Oximetry 98 87 L 91 Oxygen Delivery Method BiPAP Oxygen Flow Rate Fraction of Inspired Oxygen Sepsis Recent Fever Within 48 Hours Sepsis New/Unexplained Change in Mental Status Sepsis Action Taken by Nursing Pulse Oximetry Post Tiitration 05/05/21 16:01 05/05/21 16:38 05/05/21 16:40 Temperature 36.9 C Temperature Source Oral Pulse Rate 90 91 H Pulse Rate [Apical] 89 Pulse Rate from SpO2 Sensor 92 H 90 Pulse Rhythm [Apical] Regular Pulse Strength [Apical] Respiratory Rate 21 6 L 26 H Respiratory Effort / Characteristics Respiratory Depth Respiratory Pattern Blood Pressure 127/90 Blood Pressure [Left Arm] 124/69 Blood Pressure Mean 102 Blood Pressure Mean [Left Arm] 87 Blood Pressure Position [Left Arm] Lying Pulse Oximetry 94 91 92 Oxygen Delivery Method Ambu-Bag Oxygen Flow Rate Fraction of Inspired Oxygen Sepsis Recent Fever Within 48 Hours Sepsis New/Unexplained Change in Mental Status Sepsis Action Taken by Nursing Pulse Oximetry Post Tiitration 05/05/21 17:14 05/05/21 18:00 05/05/21 18:30 Temperature Temperature Source Pulse Rate 88 89 Pulse Rate [Apical] Pulse Rate from SpO2 Sensor 88 88 89 Pulse Rhythm [Apical] Pulse Strength [Apical] Respiratory Rate 18 20 Respiratory Effort / Characteristics Respiratory Depth Respiratory Pattern Blood Pressure 123/87 Blood Pressure [Left Arm] Blood Pressure Mean 99 Blood Pressure Mean [Left Arm] Blood Pressure Position [Left Arm] Pulse Oximetry 88 L 94 89 L Oxygen Delivery Method Oxygen Flow Rate Fraction of Inspired Oxygen Sepsis Recent Fever Within 48 Hours Sepsis New/Unexplained Change in Mental Status Sepsis Action Taken by Nursing Pulse Oximetry Post Tiitration 05/05/21 18:58 05/05/21 19:00 Temperature Temperature Source Pulse Rate 87 88 Pulse Rate [Apical] Pulse Rate from SpO2 Sensor 89 Pulse Rhythm [Apical] Pulse Strength [Apical] Respiratory Rate 18 17 Respiratory Effort / Characteristics Non-Labored Spontaneous Non-Labored Respiratory Depth Normal Respiratory Pattern Regular Blood Pressure Blood Pressure [Left Arm] Blood Pressure Mean Blood Pressure Mean [Left Arm] Blood Pressure Position [Left Arm] Pulse Oximetry 92 92 Oxygen Delivery Method BiPAP Oxygen Flow Rate Fraction of Inspired Oxygen 50 Sepsis Recent Fever Within 48 Hours Sepsis New/Unexplained Change in Mental Status Sepsis Action Taken by Nursing Pulse Oximetry Post Tiitration Home Medications Current Medication List: was personally reviewed by me Laboratory Data Attestation: I reviewed the patient's lab results. Result diagrams: 05/06/21 01:38 05/06/21 01:38 Lab Results 05/05/21 05/05/21 05/05/21 Range/Units 14:10 14:18 14:18 WBC 5.84 (4.8-10.8) K/uL RBC 4.93 (4.7-6.1) M/uL Hgb 16.4 (14.0-18.0) g/dL Hct 49.9 (42-52) % MCV 101.2 H (80-100) fL MCH 33.3 (25-34) pg MCHC 32.9 (32-36) g/dL RDW Std Deviation 56.0 H (36.4-46.3) fL RDW Coeff of Tai 15.2 H (11.5-14.5) % Plt Count 194 (130-400) K/uL MPV 10.3 (7.4-10.4) fL Immature Gran % (Auto) 0.2 % Neut % (Auto) 61.2 % Lymph % (Auto) 26.2 % Hanson % (Auto) 11.5 % Eos % (Auto) 0.7 % Baso % (Auto) 0.2 % Neut # (Auto) 3.58 (1.4-6.5) K/uL Lymph # (Auto) 1.53 (1.2-3.4) K/uL Hanson # (Auto) 0.67 H (0.11-0.59) K/uL Eos # (Auto) 0.04 (0-0.5) K/uL Baso # (Auto) 0.01 (0-0.2) K/uL Immature Gran # (Auto) 0.01 (0.00-0.02) K/uL PT 10.9 (9.0-12.0) Seconds INR 1.0 (0.9-1.1) APTT 26.2 (21.0-31.0) Seconds PTT Ratio 1.0 ABG pH ABG pCO2 ABG pO2 ABG HCO3 ABG O2 Saturation ABG Base Excess Gopal Test VBG pH (7.36-7.41) VBG pCO2 (38-50) mmHg VBG pO2 mmHg VBG HCO3 mmol/L VBG O2 Saturation % VBG Base Excess mEq/L Barometric Pressure mm/Hg Oxygen Given Sodium (136-145) mmol/L Potassium Chloride (98-107) mmol/L Carbon Dioxide (21-32) mmol/L Anion Gap (3-11) BUN (6-23) mg/dl Creatinine (0.6-1.4) mg/dl Est Cr Clr Drug Dosing ml/min Est GFR ( Amer) ml/min Est GFR (Non-Af Amer) ml/min BUN/Creatinine Ratio (10-20) Glucose (70-99(Fasting)) mg/dl Lactate (0.4-2.0) mmol/L Calcium (8.5-10.1) mg/dl Magnesium (1.7-2.4) mg/dl Total Bilirubin (0.2-1.0) mg/dl AST ALT (7-52) U/L Alkaline Phosphatase (34-104) U/L Ammonia (18-72) umol/L Troponin I (0-0.04) ng/ml B-Natriuretic Peptide (0-100) pg/ml Total Protein (6.0-8.3) gm/dl Albumin (3.4-5.0) gm/dl Globulin (2.5-4.0) gm/dl Albumin/Globulin Ratio (0.9-2) Procalcitonin (0-0.5) ng/ml TSH (0.300-4.500) uIu/ml Urine Color Urine Appearance (Clear) Urine pH (4.5-7.5) Ur Specific Ida (1.000-1.030) Urine Protein (Negative) Urine Glucose (UA) (Negative) Urine Ketones (Negative) Urine Blood (Negative) Urine Nitrite (Negative) Urine Bilirubin (Negative) Urine Urobilinogen (Negative) Ur Leukocyte Esterase (Negative) Urine WBC (Auto) (0-5) /hpf Urine RBC (Auto) (0-4) /hpf U Hyaline Cast (Auto) (0-5) /lpf U Epithel Cells (Auto) (0-5) /lpf Urine Bacteria (Auto) (Negative) Urine Opiates Screen (Neg) Ur Methadone, Qual (Neg) Urine Barbiturates (Neg) Ur Phencyclidine (PCP) (Neg) U Amphetamin/Meth Scrn (Neg) MDMA (Ecstasy) Screen (Neg) U Benzodiazepines Scrn (Neg) Ur Cocaine Metabolite (Neg) U Marijuana (THC) Screen (Neg) Influ A Molecular Assay (Negative) Influ B Molecular Assay (Negative) SARS-CoV-2, RNA, NAAT NEGATIVE (NEGATIVE) 05/05/21 05/05/21 05/05/21 Range/Units 14:18 14:18 14:18 WBC (4.8-10.8) K/uL RBC (4.7-6.1) M/uL Hgb (14.0-18.0) g/dL Hct (42-52) % MCV (80-100) fL MCH (25-34) pg MCHC (32-36) g/dL RDW Std Deviation (36.4-46.3) fL RDW Coeff of Tai (11.5-14.5) % Plt Count (130-400) K/uL MPV (7.4-10.4) fL Immature Gran % (Auto) % Neut % (Auto) % Lymph % (Auto) % Hanson % (Auto) % Eos % (Auto) % Baso % (Auto) % Neut # (Auto) (1.4-6.5) K/uL Lymph # (Auto) (1.2-3.4) K/uL Hanson # (Auto) (0.11-0.59) K/uL Eos # (Auto) (0-0.5) K/uL Baso # (Auto) (0-0.2) K/uL Immature Gran # (Auto) (0.00-0.02) K/uL PT (9.0-12.0) Seconds INR (0.9-1.1) APTT (21.0-31.0) Seconds PTT Ratio ABG pH ABG pCO2 ABG pO2 ABG HCO3 ABG O2 Saturation ABG Base Excess Gopal Test VBG pH 7.26 L (7.36-7.41) VBG pCO2 81 H (38-50) mmHg VBG pO2 34 mmHg VBG HCO3 36 mmol/L VBG O2 Saturation < 60.0 % VBG Base Excess 4.8 mEq/L Barometric Pressure 735.9 mm/Hg Oxygen Given Sodium 144 (136-145) mmol/L Potassium TNP Chloride 101 (98-107) mmol/L Carbon Dioxide 34 H (21-32) mmol/L Anion Gap 9 (3-11) BUN 36 H (6-23) mg/dl Creatinine 1.63 H (0.6-1.4) mg/dl Est Cr Clr Drug Dosing 53.4 ml/min Est GFR ( Amer) 48.7 ml/min Est GFR (Non-Af Amer) 42.1 ml/min BUN/Creatinine Ratio 22.1 H (10-20) Glucose 106 H (70-99(Fasting)) mg/dl Lactate (0.4-2.0) mmol/L Calcium 9.0 (8.5-10.1) mg/dl Magnesium 1.8 (1.7-2.4) mg/dl Total Bilirubin 0.4 (0.2-1.0) mg/dl AST TNP ALT 35 (7-52) U/L Alkaline Phosphatase 84 (34-104) U/L Ammonia (18-72) umol/L Troponin I 0.26 H* (0-0.04) ng/ml B-Natriuretic Peptide (0-100) pg/ml Total Protein 6.8 (6.0-8.3) gm/dl Albumin 4.1 (3.4-5.0) gm/dl Globulin 2.7 (2.5-4.0) gm/dl Albumin/Globulin Ratio 1.5 (0.9-2) Procalcitonin 0.11 (0-0.5) ng/ml TSH (0.300-4.500) uIu/ml Urine Color Urine Appearance (Clear) Urine pH (4.5-7.5) Ur Specific Ida (1.000-1.030) Urine Protein (Negative) Urine Glucose (UA) (Negative) Urine Ketones (Negative) Urine Blood (Negative) Urine Nitrite (Negative) Urine Bilirubin (Negative) Urine Urobilinogen (Negative) Ur Leukocyte Esterase (Negative) Urine WBC (Auto) (0-5) /hpf Urine RBC (Auto) (0-4) /hpf U Hyaline Cast (Auto) (0-5) /lpf U Epithel Cells (Auto) (0-5) /lpf Urine Bacteria (Auto) (Negative) Urine Opiates Screen (Neg) Ur Methadone, Qual (Neg) Urine Barbiturates (Neg) Ur Phencyclidine (PCP) (Neg) U Amphetamin/Meth Scrn (Neg) MDMA (Ecstasy) Screen (Neg) U Benzodiazepines Scrn (Neg) Ur Cocaine Metabolite (Neg) U Marijuana (THC) Screen (Neg) Influ A Molecular Assay (Negative) Influ B Molecular Assay (Negative) SARS-CoV-2, RNA, NAAT (NEGATIVE) 05/05/21 05/05/21 05/05/21 Range/Units 15:41 15:49 15:49 WBC (4.8-10.8) K/uL RBC (4.7-6.1) M/uL Hgb (14.0-18.0) g/dL Hct (42-52) % MCV (80-100) fL MCH (25-34) pg MCHC (32-36) g/dL RDW Std Deviation (36.4-46.3) fL RDW Coeff of Tai (11.5-14.5) % Plt Count (130-400) K/uL MPV (7.4-10.4) fL Immature Gran % (Auto) % Neut % (Auto) % Lymph % (Auto) % Hanson % (Auto) % Eos % (Auto) % Baso % (Auto) % Neut # (Auto) (1.4-6.5) K/uL Lymph # (Auto) (1.2-3.4) K/uL Hanson # (Auto) (0.11-0.59) K/uL Eos # (Auto) (0-0.5) K/uL Baso # (Auto) (0-0.2) K/uL Immature Gran # (Auto) (0.00-0.02) K/uL PT (9.0-12.0) Seconds INR (0.9-1.1) APTT (21.0-31.0) Seconds PTT Ratio ABG pH ABG pCO2 ABG pO2 ABG HCO3 ABG O2 Saturation ABG Base Excess Gopal Test VBG pH (7.36-7.41) VBG pCO2 (38-50) mmHg VBG pO2 mmHg VBG HCO3 mmol/L VBG O2 Saturation % VBG Base Excess mEq/L Barometric Pressure mm/Hg Oxygen Given Sodium (136-145) mmol/L Potassium Chloride (98-107) mmol/L Carbon Dioxide (21-32) mmol/L Anion Gap (3-11) BUN (6-23) mg/dl Creatinine (0.6-1.4) mg/dl Est Cr Clr Drug Dosing ml/min Est GFR ( Amer) ml/min Est GFR (Non-Af Amer) ml/min BUN/Creatinine Ratio (10-20) Glucose (70-99(Fasting)) mg/dl Lactate 0.9 (0.4-2.0) mmol/L Calcium (8.5-10.1) mg/dl Magnesium (1.7-2.4) mg/dl Total Bilirubin (0.2-1.0) mg/dl AST ALT (7-52) U/L Alkaline Phosphatase (34-104) U/L Ammonia (18-72) umol/L Troponin I (0-0.04) ng/ml B-Natriuretic Peptide 754 H (0-100) pg/ml Total Protein (6.0-8.3) gm/dl Albumin (3.4-5.0) gm/dl Globulin (2.5-4.0) gm/dl Albumin/Globulin Ratio (0.9-2) Procalcitonin (0-0.5) ng/ml TSH (0.300-4.500) uIu/ml Urine Color Urine Appearance (Clear) Urine pH (4.5-7.5) Ur Specific Ida (1.000-1.030) Urine Protein (Negative) Urine Glucose (UA) (Negative) Urine Ketones (Negative) Urine Blood (Negative) Urine Nitrite (Negative) Urine Bilirubin (Negative) Urine Urobilinogen (Negative) Ur Leukocyte Esterase (Negative) Urine WBC (Auto) (0-5) /hpf Urine RBC (Auto) (0-4) /hpf U Hyaline Cast (Auto) (0-5) /lpf U Epithel Cells (Auto) (0-5) /lpf Urine Bacteria (Auto) (Negative) Urine Opiates Screen (Neg) Ur Methadone, Qual (Neg) Urine Barbiturates (Neg) Ur Phencyclidine (PCP) (Neg) U Amphetamin/Meth Scrn (Neg) MDMA (Ecstasy) Screen (Neg) U Benzodiazepines Scrn (Neg) Ur Cocaine Metabolite (Neg) U Marijuana (THC) Screen (Neg) Influ A Molecular Assay Negative (Negative) Influ B Molecular Assay Negative (Negative) SARS-CoV-2, RNA, NAAT (NEGATIVE) 05/05/21 05/05/21 05/05/21 Range/Units 15:49 15:49 15:49 WBC (4.8-10.8) K/uL RBC (4.7-6.1) M/uL Hgb (14.0-18.0) g/dL Hct (42-52) % MCV (80-100) fL MCH (25-34) pg MCHC (32-36) g/dL RDW Std Deviation (36.4-46.3) fL RDW Coeff of Tai (11.5-14.5) % Plt Count (130-400) K/uL MPV (7.4-10.4) fL Immature Gran % (Auto) % Neut % (Auto) % Lymph % (Auto) % Hanson % (Auto) % Eos % (Auto) % Baso % (Auto) % Neut # (Auto) (1.4-6.5) K/uL Lymph # (Auto) (1.2-3.4) K/uL Hanson # (Auto) (0.11-0.59) K/uL Eos # (Auto) (0-0.5) K/uL Baso # (Auto) (0-0.2) K/uL Immature Gran # (Auto) (0.00-0.02) K/uL PT (9.0-12.0) Seconds INR (0.9-1.1) APTT (21.0-31.0) Seconds PTT Ratio ABG pH ABG pCO2 ABG pO2 ABG HCO3 ABG O2 Saturation ABG Base Excess Gopal Test VBG pH (7.36-7.41) VBG pCO2 (38-50) mmHg VBG pO2 mmHg VBG HCO3 mmol/L VBG O2 Saturation % VBG Base Excess mEq/L Barometric Pressure mm/Hg Oxygen Given Sodium (136-145) mmol/L Potassium 4.5 Chloride (98-107) mmol/L Carbon Dioxide (21-32) mmol/L Anion Gap (3-11) BUN (6-23) mg/dl Creatinine (0.6-1.4) mg/dl Est Cr Clr Drug Dosing ml/min Est GFR ( Amer) ml/min Est GFR (Non-Af Amer) ml/min BUN/Creatinine Ratio (10-20) Glucose (70-99(Fasting)) mg/dl Lactate (0.4-2.0) mmol/L Calcium (8.5-10.1) mg/dl Magnesium (1.7-2.4) mg/dl Total Bilirubin (0.2-1.0) mg/dl AST 29 ALT (7-52) U/L Alkaline Phosphatase (34-104) U/L Ammonia 78.0 H (18-72) umol/L Troponin I (0-0.04) ng/ml B-Natriuretic Peptide (0-100) pg/ml Total Protein (6.0-8.3) gm/dl Albumin (3.4-5.0) gm/dl Globulin (2.5-4.0) gm/dl Albumin/Globulin Ratio (0.9-2) Procalcitonin (0-0.5) ng/ml TSH 2.225 (0.300-4.500) uIu/ml Urine Color Urine Appearance (Clear) Urine pH (4.5-7.5) Ur Specific Ida (1.000-1.030) Urine Protein (Negative) Urine Glucose (UA) (Negative) Urine Ketones (Negative) Urine Blood (Negative) Urine Nitrite (Negative) Urine Bilirubin (Negative) Urine Urobilinogen (Negative) Ur Leukocyte Esterase (Negative) Urine WBC (Auto) (0-5) /hpf Urine RBC (Auto) (0-4) /hpf U Hyaline Cast (Auto) (0-5) /lpf U Epithel Cells (Auto) (0-5) /lpf Urine Bacteria (Auto) (Negative) Urine Opiates Screen (Neg) Ur Methadone, Qual (Neg) Urine Barbiturates (Neg) Ur Phencyclidine (PCP) (Neg) U Amphetamin/Meth Scrn (Neg) MDMA (Ecstasy) Screen (Neg) U Benzodiazepines Scrn (Neg) Ur Cocaine Metabolite (Neg) U Marijuana (THC) Screen (Neg) Influ A Molecular Assay (Negative) Influ B Molecular Assay (Negative) SARS-CoV-2, RNA, NAAT (NEGATIVE) 05/05/21 05/05/21 05/05/21 Range/Units 17:49 18:06 18:06 WBC (4.8-10.8) K/uL RBC (4.7-6.1) M/uL Hgb (14.0-18.0) g/dL Hct (42-52) % MCV (80-100) fL MCH (25-34) pg MCHC (32-36) g/dL RDW Std Deviation (36.4-46.3) fL RDW Coeff of Tai (11.5-14.5) % Plt Count (130-400) K/uL MPV (7.4-10.4) fL Immature Gran % (Auto) % Neut % (Auto) % Lymph % (Auto) % Hanson % (Auto) % Eos % (Auto) % Baso % (Auto) % Neut # (Auto) (1.4-6.5) K/uL Lymph # (Auto) (1.2-3.4) K/uL Hanson # (Auto) (0.11-0.59) K/uL Eos # (Auto) (0-0.5) K/uL Baso # (Auto) (0-0.2) K/uL Immature Gran # (Auto) (0.00-0.02) K/uL PT (9.0-12.0) Seconds INR (0.9-1.1) APTT (21.0-31.0) Seconds PTT Ratio ABG pH Cancelled ABG pCO2 Cancelled ABG pO2 Cancelled ABG HCO3 Cancelled ABG O2 Saturation Cancelled ABG Base Excess Cancelled Gopal Test Cancelled VBG pH (7.36-7.41) VBG pCO2 (38-50) mmHg VBG pO2 mmHg VBG HCO3 mmol/L VBG O2 Saturation % VBG Base Excess mEq/L Barometric Pressure Cancelled mm/Hg Oxygen Given Cancelled Sodium (136-145) mmol/L Potassium Chloride (98-107) mmol/L Carbon Dioxide (21-32) mmol/L Anion Gap (3-11) BUN (6-23) mg/dl Creatinine (0.6-1.4) mg/dl Est Cr Clr Drug Dosing ml/min Est GFR ( Amer) ml/min Est GFR (Non-Af Amer) ml/min BUN/Creatinine Ratio (10-20) Glucose (70-99(Fasting)) mg/dl Lactate (0.4-2.0) mmol/L Calcium (8.5-10.1) mg/dl Magnesium (1.7-2.4) mg/dl Total Bilirubin (0.2-1.0) mg/dl AST ALT (7-52) U/L Alkaline Phosphatase (34-104) U/L Ammonia (18-72) umol/L Troponin I (0-0.04) ng/ml B-Natriuretic Peptide (0-100) pg/ml Total Protein (6.0-8.3) gm/dl Albumin (3.4-5.0) gm/dl Globulin (2.5-4.0) gm/dl Albumin/Globulin Ratio (0.9-2) Procalcitonin (0-0.5) ng/ml TSH (0.300-4.500) uIu/ml Urine Color Yellow Urine Appearance Clear (Clear) Urine pH 6.0 (4.5-7.5) Ur Specific Ida 1.029 (1.000-1.030) Urine Protein 1+ H (Negative) Urine Glucose (UA) Negative (Negative) Urine Ketones Negative (Negative) Urine Blood Negative (Negative) Urine Nitrite Negative (Negative) Urine Bilirubin Negative (Negative) Urine Urobilinogen Negative (Negative) Ur Leukocyte Esterase Negative (Negative) Urine WBC (Auto) 0 (0-5) /hpf Urine RBC (Auto) 0-4 (0-4) /hpf U Hyaline Cast (Auto) 0 (0-5) /lpf U Epithel Cells (Auto) 5-10 H (0-5) /lpf Urine Bacteria (Auto) Negative (Negative) Urine Opiates Screen Neg (Neg) Ur Methadone, Qual Neg (Neg) Urine Barbiturates Neg (Neg) Ur Phencyclidine (PCP) Neg (Neg) U Amphetamin/Meth Scrn Neg (Neg) MDMA (Ecstasy) Screen Neg (Neg) U Benzodiazepines Scrn Neg (Neg) Ur Cocaine Metabolite Neg (Neg) U Marijuana (THC) Screen Neg (Neg) Influ A Molecular Assay (Negative) Influ B Molecular Assay (Negative) SARS-CoV-2, RNA, NAAT (NEGATIVE) Administered Medications Divalproex Sodium (Divalproex Extended Release 500 Mg Tab) 1,500 mg PO HS IVANA Stop: 06/04/21 20:59 Last Admin: 05/05/21 20:49 Dose: 1,500 mg Documented by: [id number] Gabapentin (Gabapentin 100 Mg Cap) 200 mg PO TID IVANA Stop: 06/04/21 20:59 Last Admin: 05/05/21 20:48 Dose: 200 mg Documented by: [id number] Ceftriaxone Sodium 2,000 mg/ (Dextrose) 70 mls @ 100 mls/hr IV Q24H IVANA; Protocol Stop: 05/12/21 19:59 Last Infusion: 05/05/21 21:40 Dose: 0 mls/hr Documented by: [id number] Admin: 05/05/21 20:45 Dose: 100 mls/hr Documented by: [id number] Doxycycline Hyclate 100 mg/ (Dextrose) 110 mls @ 50 mls/hr IV Q12H [facility] Stop: 05/12/21 20:59 Last Infusion: 05/06/21 00:17 Dose: 0 mls/hr Documented by: [id number] Admin: 05/05/21 21:52 Dose: 50 mls/hr Documented by: [id number] Levothyroxine Sodium (Levothyroxine Sodium 75 Mcg Tablet) 75 mcg PO DAILYBB IVANA Stop: 06/05/21 06:29 Last Admin: 05/06/21 06:16 Dose: 75 mcg Documented by: [id number] Mirtazapine (Mirtazapine Tab 15 Mg Tab) 7.5 mg PO QPM IVANA Stop: 06/04/21 20:59 Last Admin: 05/05/21 20:48 Dose: 7.5 mg Documented by: [id number] Discontinued Medications Furosemide (Furosemide 40 Mg/4 Ml Vial) 40 mg IV ONE ONE Stop: 05/05/21 17:26 Last Admin: 05/05/21 17:56 Dose: 40 mg Documented by: [id number] Sodium Chloride (Nss 1000ml) 500 mls @ 999 mls/hr IV .Q31M ONE Stop: 05/05/21 15:55 Last Infusion: 05/05/21 17:45 Dose: 0 mls/hr Documented by: [id number] Admin: 05/05/21 16:34 Dose: 999 mls/hr Documented by: [id number] Piperacillin Sod/Tazobactam Sod (Zosyn) 4.5 gm in 120 mls @ 240 mls/hr IV NOW ONE Stop: 05/05/21 17:51 Last Infusion: 05/05/21 19:04 Dose: 0 mls/hr Documented by: [id number] Admin: 05/05/21 17:56 Dose: 240 mls/hr Documented by: [id number] Ioversol (Optiray 320 125ml) 116 ml IV ONCE ONE Stop: 05/05/21 17:08 Last Admin: 05/05/21 17:10 Dose: 116 ml Documented by: [id number] Imaging Data Radiologist's Impression: Chest X-Ray 05/05/21 14:16 XR chest 1V portable CLINICAL HISTORY: SEPSIS TECHNIQUE: Single frontal radiograph of the chest was obtained. Comparison: Comparison is made to chest one view 11/16/2019 FINDINGS: No lines and tubes are seen. Cardiomegaly is noted. There is prominence and cephalization of the vasculature with Ana Luisa B lines seen. Airspace opacity is seen in the left retrocardiac region. Likely small bilateral pleural effusions. IMPRESSION: 1. Moderate pulmonary edema. 2. If the small bilateral pleural effusions. 3. Left retrocardiac airspace opacity may represent atelectasis, pneumonia, and/or aspiration. ACT 112: Negative or not required by law. Electronically signed by: Roberto Garcia M.D. 05/05/2021 2:[address] 05/05/21 14:30 CT head/brain wo con CLINICAL HISTORY: ams . Shortness of breath with difficulty lying still. COMPARISON STUDY: 08/24/2018 CT DOSE: TECHNIQUE: Standard CT of the Brain was performed without IV contrast. A dose lowering technique was utilized adhering to the principles of ALARA. FINDINGS: Extraaxial space: There is no evidence for subdural hematoma. There are no extra-axial fluid collections. Ventricles and cisterns: The ventricles are normal in size and configuration. There is no evidence for midline shift or mass effect. Parenchyma: There is no subarachnoid or intraparenchymal hemorrhage. There is no evidence for an acute infarct or cerebral edema. There is mild cerebral cortical atrophy and decreased attenuation in the periventricular white matter representing remote small vessel disease. There are no gross mass lesions. Osseous structures: There is no evidence for an acute fracture. The visualized paranasal sinuses are clear. The mastoid air cells are clear bilaterally. Soft tissues: There is no evidence for focal soft tissue swelling. IMPRESSION: 1. No acute intracerebral pathology. 2. Mild cerebral cortical atrophy and remote small vessel disease. ACT 112: Negative or not required by law. Electronically signed by: Franky Richmond M.D. 05/05/2021 5:13 PM Patient:CARRIE VENEGAS Admit Date:05/05/21 MR#:[id number] Address1:[address] [place] [address] Acct ID:[id number] Address2: Date:1950 [facility] Zip:[place] [address] Age:71 Location:ED Sex:M Room/Bed: Att Phy: Diagnosis:SOB Tanesha Phy:Mino Mayfield,Personal [facility] Service Date:05/05/21 Fam Phy: Interpreting Phy:Franky Richmond MDAit Phy: Ordering Phy:Melvin Carmona DO cc: ~ CT angio chest PE protocol CLINICAL HISTORY: Shortness of breath COMPARISON STUDY: Portable chest from 05/05/2021 CT DOSE: 1768.17 mGy.cm TECHNIQUE: CT Angio of the chest was performed.followed by image post processing with coronal, and sagittal MIP reformats. Contrast Volume: Optiray 320, 116 ml FINDINGS: Vasculature: There is homogeneous perfusion of the pulmonary vasculature bilaterally. No intraluminal filling defects or evidence for pulmonary embolus is seen. Airway: The airway is clear. No endobronchial lesion is identified. Lungs and pleura: There is a small left pleural effusion and left basilar atelectasis. There is also a small right pleural effusion with a more confluent alveolar opacity and air bronchograms. The findings are suspicious for the presence of pneumonia. There is no evidence for vascular congestion. Mediastinum: There is no evidence for pathologic adenopathy. The heart size is moderately enlarged. The thoracic aorta is within normal limits. There is no evidence for pericardial effusion. Upper abdomen:The adrenal glands are normal bilaterally. Osseous structures: There is no acute osseous pathology. Impression: 1. No CTA evidence for pulmonary embolus. 2. Small right-sided pleural effusion and patchy alveolar opacity at the right lung base with air bronchograms. The findings are characteristic of early pneumonia. 3. Small left pleural effusion with left basilar atelectasis. 4. No evidence for vascular congestion. 5. Moderate cardiomegaly. ACT 112: Negative or not required by law. Electronically signed by: Franky Richmond M.D. 05/05/2021 5:40 PM Dictated:05/05/211732 Transcribed: 05/05/211732 Discharge Plan Visit Data Chief Complaint: Shortness of Breath/Dyspnea Stated Complaint: SOB ED Provider: Melvin Carmona Discharge Problem: Respiratory failure, Edema of lower extremity, Acute respiratory acidosis, Hypoxia, Elevated troponin I level, Abnormal EKG Patient Disposition: Admitted As Inpatient Discharge Instructions Interventions: ED Discharge Assessment Last Done: 05/05/21 20:41
[2021-05-05 14:42] LABS: Base Excess VBG 4.8 mEq/L; HCO3 VBG 36 mmol/L; PCO2 VBG 81 mmHg (38-50); PO2 VBG 34 mmHg; pH VBG 7.26 (7.36-7.41)
[2021-05-05 14:43] LABS: Oxygen Saturation VBG < 60.0 %
[2021-05-05 14:45] LABS: Partial Thromboplastin Time 26.2 Seconds (21.0-31.0); Prothrombin Time 10.9 Seconds (9.0-12.0)
--- NOTE | 2021-05-05 14:55 | XRay Report ---
XR chest 1V portable CLINICAL HISTORY: SEPSIS TECHNIQUE: Single frontal radiograph of the chest was obtained. Comparison: Comparison is made to chest one view 11/16/2019 FINDINGS: No lines and tubes are seen. Cardiomegaly is noted. There is prominence and cephalization of the vasc ulature with Ana Luisa B lines seen. Airspace opacity is seen in the left retrocardiac region. Likely sm all bilateral pleural effusions. IMPRESSION: 1. Moderate pulmonary edema. 2. If the small bilateral pleural effusions. 3. Left retrocardiac airspace opacity may represent atelectasis, pneumonia, and/or aspiration. ACT 112: Negative or not required by law. Electronically signed by: Roberto Garcia M.D. 05/05/2021 2:53 PM
[2021-05-05 15:00] LABS: Troponin I 0.26 ng/ml (0-0.04)
[2021-05-05 15:12] LABS: Alanine Aminotransferase 35 U/L (7-52); Albumin Globulin Ratio 1.5 (0.9-2); Albumin Level 4.1 gm/dl (3.4-5.0); Alkaline Phosphatase 84 U/L (34-104); Anion Gap 9 (3-11); BUN Creatinine Ratio 22.1 (10-20); Bilirubin,Total 0.4 mg/dl (0.2-1.0); Blood Urea Nitrogen 36 mg/dl (6-23); Carbon Dioxide 34 mmol/L (21-32); Chloride 101 mmol/L (98-107); Creatinine Clr Calc Pharmacy 53.4 ml/min; Est GFR (African American) 48.7 ml/min; Est GFR (Non-African American) 42.1 ml/min; Globulin 2.7 gm/dl (2.5-4.0); Glucose 106 mg/dl (70-99(Fasting)); Magnesium 1.8 mg/dl (1.7-2.4); Sodium 144 mmol/L (136-145); Total Protein 6.8 gm/dl (6.0-8.3)
[2021-05-05] MEDS ORDERED: SODIUM CHLORIDE 0.9% 1000ML 500 ML IV ONE (15:25)
--- NOTE | 2021-05-05 16:17 | Electrocardiogram Report ---
Test Reason : Blood Pressure : / mmHG Vent. Rate : 095 BPM Atrial Rate : 095 BPM P-R Int : 128 ms QRS Dur : 092 ms QT Int : 410 ms P-R-T Axes : 041 176 082 degrees QTc Int : 515 ms Normal sinus rhythm Right ventricular hypertrophy Poor R wave progression, consider anterior MT vs. lead placement vs. LVH Nonspecific ST and T wave abnormality Abnormal ECG When compared with ECG of 14-NOV-2019 22:34, Nonspecific T wave abnormality now evident in Anterolateral leads QT has lengthened Confirmed by Melvin Peng ([id number]) on 05/05/2021 4:17:06 PM Referred By: Confirmed By:Melvin Peng
[2021-05-05 16:21] LABS: Influenza A virus by PCR Negative (Negative); Influenza B virus by PCR Negative (Negative)
[2021-05-05 16:30] LABS: Potassium 4.5 mmol/L (3.5-5.1)
[2021-05-05] MEDS ORDERED: OPTIRAY 320 125ml IV ONE (17:07)
--- NOTE | 2021-05-05 17:15 | CT Scan Report ---
CT head/brain wo con CLINICAL HISTORY: ams . Shortness of breath with difficulty lying still. COMPARISON STUDY: 08/24/2018 CT DOSE: TECHNIQUE: Standard CT of the Brain was performed without IV contrast. A dose lowering technique was utilized adhering to the principles of ALARA. FINDINGS: Extraaxial space: There is no evidence for subdural hematoma. There are no extra-axial fluid collecti ons. Ventricles and cisterns: The ventricles are normal in size and configuration. There is no evidence fo r midline shift or mass effect. Parenchyma: There is no subarachnoid or intraparenchymal hemorrhage. There is no evidence for an acut e infarct or cerebral edema. There is mild cerebral cortical atrophy and decreased attenuation in the periventricular white matter representing remote small vessel disease. There are no gross mass lesio ns. Osseous structures: There is no evidence for an acute fracture. The visualized paranasal sinuses are clear. The mastoid air cells are clear bilaterally. Soft tissues: There is no evidence for focal soft tissue swelling. IMPRESSION: 1. No acute intracerebral pathology. 2. Mild cerebral cortical atrophy and remote small vessel disease. ACT 112: Negative or not required by law. Electronically signed by: Franky Richmond M.D. 05/05/2021 5:13 PM
[2021-05-05] MEDS ORDERED: PIPERACILLIN/TAZOBACTAM 4.5 GM/120 ML BAG IV ONE (17:22)
[2021-05-05] MEDS ORDERED: PIPERACILL/TAZOBAC CONSULT ACTIVE PRN (17:22)
[2021-05-05] MEDS ORDERED: FUROSEMIDE 40 MG/4 ML VIAL IV ONE (17:25)
--- NOTE | 2021-05-05 17:26 | Hospitalist Progress Note ---
Date of Service May 05, 2021 Subjective Patient was seen and evaluated independently. Chart Reviewed. Case discussed with NAUN. Here with acute hypoxic hypercapnic respiratory failure, likely multifactorial. Appears to have acute on chronic diastolic CHF (CXR shows pulmonary edema) Also with OTIS on CKD stage 3, likely cardiorenal. Unfortunately got CTA chest by ER. Will give lasix 40mg IV once. Reassess fluid status, renal function tomorrow. Will maintain on BIPAP. Repeat ABG in 1 hour. If improved CO2 retention, can have biPAP PRN. Will consult Pulmonology for BIPAP management, respiratory failure, severe pulmonary hypertension Cardiology for decompensated heart failure Can hold off on Nephrology consult but if renal functions worsens, would want Nephrology on board as well Patient is acutely ill and needs aggressive intervention to avoid further decompensation. Noted that his code status is DNR/DNI. Results & Data Results & Data ([facility]) Vital Signs (Past 12 Hours) Vital Signs Temp Pulse Pulse Resp BP BP Pulse Ox 05/05/21 14:24 94 H 22 94 05/05/21 14:08 36.9 C 90 18 127/90 95 05/05/21 14:00 36.7 C 94 H 20 136/70 65 L
--- NOTE | 2021-05-05 17:42 | CT Scan Report ---
CT angio chest PE protocol CLINICAL HISTORY: Shortness of breath COMPARISON STUDY: Portable chest from 05/05/2021 CT DOSE: 1768.17 mGy.cm TECHNIQUE: CT Angio of the chest was performed.followed by image post processing with coronal, and s agittal MIP reformats. Contrast Volume: Optiray 320, 116 ml FINDINGS: Vasculature: There is homogeneous perfusion of the pulmonary vasculature bilaterally. No intraluminal filling defects or evidence for pulmonary embolus is seen. Airway: The airway is clear. No endobronchial lesion is identified. Lungs and pleura: There is a small left pleural effusion and left basilar atelectasis. There is also a small right pleural effusion with a more confluent alveolar opacity and air bronchograms. The findi ngs are suspicious for the presence of pneumonia. There is no evidence for vascular congestion. Mediastinum: There is no evidence for pathologic adenopathy. The heart size is moderately enlarged. T he thoracic aorta is within normal limits. There is no evidence for pericardial effusion. Upper abdomen:The adrenal glands are normal bilaterally. Osseous structures: There is no acute osseous pathology. Impression: 1. No CTA evidence for pulmonary embolus. 2. Small right-sided pleural effusion and patchy alveolar opacity at the right lung base with air bro nchograms. The findings are characteristic of early pneumonia. 3. Small left pleural effusion with left basilar atelectasis. 4. No evidence for vascular congestion. 5. Moderate cardiomegaly. ACT 112: Negative or not required by law. Electronically signed by: Franky Richmond M.D. 05/05/2021 5:40 PM
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
[2021-05-05 19:13] LABS: Appearance Urine Clear (Clear); Bacteria Urine Automated Negative (Negative); Bilirubin Urine Negative (Negative); Blood Urine Negative (Negative); Cast Urine Automated 0 /lpf (0-5); Color Urine Yellow; Glucose Urine UA Negative (Negative); Ketones Urine Negative (Negative); Leukocyte Esterase Urine Negative (Negative); Nitrite Urine Negative (Negative); Protein Urine 1+ (Negative); RBC Urine Automated 0-4 /hpf (0-4); Specific Gravity Urine 1.029 (1.000-1.030); Urobilinogen Urine Negative (Negative); WBC Urine Automated 0 /hpf (0-5)
[2021-05-05 19:37] LABS: Amphetamines+Metham, Urine Neg (Neg); Barbiturates, Urine Neg (Neg); Benzodiazepine, Urine Neg (Neg); Cocaine, Urine Neg (Neg); MDMA (Ecstacy), Urine Neg (Neg); Methadone, Urine Neg (Neg); Opiate, Urine Neg (Neg); Phencyclidine, Urine Neg (Neg)
[2021-05-05] MEDS ORDERED: ACETAMINOPHEN 325 MG TAB PO PRN (19:41)
[2021-05-05] MEDS ORDERED: cefTRIAXone SODIUM 2,000 MG in DEXTROSE 5% 50 ML IV SCH (20:00)
[2021-05-05] MEDS: MIRTAZAPINE TAB 15 MG TAB PO SCH (20:48)
[2021-05-05] MEDS: GABAPENTIN 100 MG CAP PO SCH (20:48)
[2021-05-05] MEDS: DIVALPROEX EXTENDED RELEASE 500 MG TAB PO SCH (20:49)
[2021-05-05] MEDS: DOXYCYCLINE HYCLATE 100 MG in DEXTROSE 5% 100 ML IV SCH (21:52)
[2021-05-06 01:53] LABS: Hematocrit (blood only) 48.8 % (42-52); Hemoglobin 15.7 g/dL (14.0-18.0); Mean Corpuscular Hemoglobin 32.7 pg (25-34); Mean Corpuscular Hgb Conc 32.2 g/dL (32-36); Mean Corpuscular Volume 101.7 fL (80-100); Mean Platelet Volume 9.5 fL (7.4-10.4); Platelet Count 182 K/uL (130-400); RDW Coefficient of Variation 15.3 % (11.5-14.5); RDW Standard Deviation 56.3 fL (36.4-46.3); White Blood Count 6.26 K/uL (4.8-10.8)
[2021-05-06 02:14] LABS: BUN Creatinine Ratio 18.8 (10-20); Calcium 8.9 mg/dl (8.5-10.1); Creatinine Clr Calc Pharmacy 50.3 ml/min; Est GFR (Non-African American) 41.4 ml/min; Potassium 4.3 mmol/L (3.5-5.1)
[2021-05-06] MEDS: LEVOTHYROXINE SODIUM 75 MCG TABLET PO SCH (06:16)
[2021-05-06] MEDS: CYANOCOBALAMIN (B-12) 500 MCG TABLET PO SCH (08:37)
[2021-05-06] MEDS: ATORVASTATIN 40 MG TAB PO SCH (08:37)
[2021-05-06] MEDS: FINASTERIDE 5 MG TAB PO SCH (08:37)
[2021-05-06] MEDS: GABAPENTIN 100 MG CAP PO SCH ×3 (08:37→21:56)
[2021-05-06] MEDS: TAMSULOSIN HCL 0.4 MG CAP PO SCH (08:38)
[2021-05-06] MEDS: CHOLECALCIFEROL 1,000 UNITS 25 MCG TAB PO SCH (08:38)
[2021-05-06] MEDS: DIVALPROEX EXTENDED RELEASE 500 MG TAB PO SCH (08:38)
[2021-05-06] MEDS: DOXYCYCLINE HYCLATE 100 MG in DEXTROSE 5% 100 ML IV SCH (08:44)
--- NOTE | 2021-05-06 09:28 | Cardiology Consultation ---
Date of Consultation May 06, 2021 Assessment & Plan (1) Acute on chronic respiratory failure with hypoxia and hypercapnia: (2) Severe pulmonary hypertension: (3) Cor pulmonale: (4) Elevated troponin I level: (5) Pneumonia: Patient admitted for acute on chronic respiratory failure with hypoxia and hypercapnia. He has severe underlying pulmonary hypertension with severely dilated RV with similar findings on current echo this admission as to November 2020 echo. He was to have outpatient right heart cath but this was not completed due to insurance reasons. He unfortunately has not had close f/u with pulmonology team as well. Chest CTA was negative for pulmonary embolus but demonstrating possible early pneumonia. Continue antibiotics with doxycycline and Ceftriazone. Avoid QT prolonging agents. Continue BIPAP Pulm consult appreciated. Patient with abnormal EKG, T wave inversions in anterior leads, but denies chest pain. Echo with normal LV systolic function. Mild troponin elevation consistent with myocardial strain with hypoxia. Creatinine higher than baseline but unchanged after IV furosemide yesterday. Good diuresis over the last 24 hour since admission. Will treat with additional IV furosemide 40 mg today to aid with respiratory status. Once respiratory status improves, consider right/left heart cath for further evaluation of his cardiopulmonary status. case discussed with Dr. Jurado. Will follow. Supervising Physician Co-Signing Physician Notes 71-year-old patient admitted with acute hypoxic and hypercapnic respiratory failure. Patient currently on BiPAP. Answers questions appropriately. Denies chest discomfort or heaviness. History of severe pulmonary hypertension with RV dilatation and dysfunction. These findings confirmed by echocardiogram today s uggesting severe pulmonary hypertension. He has received 1 dose of furosemide yesterday with 1600 cc diuresis. PE:VSS. GEN: Acutely ill, no acute distress. Heart: Regular, borderline tachycardic. No murmur appreciated. Lungs: Scattered rhonchi with expiratory wheezing bilaterally. Abd: Soft, nontender, normal bowel sounds. Extremities: No edema. A/P: Agree with above PA-C history, physical exam, assessment and plan. 71-year-old with acute on chronic respiratory failure with hypoxia and hypercapnia. X-ray and CT evidence of pneumonia. IV diuretic therapy added to optimize respiratory status. He will receive an additional dose of IV furosemide today. Repeat BMP in a.m. and reassess volume status tomorrow. Appreciate pulmonary medicine consultation. In regard to patient's pulmonary hypertension, he will require a cardiac catheterization when he has recovered from pneumonia and his respiratory status has stabilized. Mildly elevated troponin secondary to hypoxia in the setting of pneumonia/hypoxic respiratory failure, and acute on chronic renal insufficiency. T wave inversions on ECG noted on prior tracings. No regional wall motion abnormalities on 2D transthoracic echocardiogram to suggest plaque rupture event. Continue supportive care. Thank you for allow me to participate in the care of your patient History of Present Illness Reason for Consultation: SOB/CHF Requesting Physician: BRUNILDA Ramirez Attending Physician: Dr. Jurado History of Present Illness Patient is a 71 year old male who is known to Dr. Rosas of [facility]. Most of the information provided has been reviewed through inpatient/outpatient records. Patient currently on BIPAP and review of systems/history is limited. History includes: 1. Severe pulmonary hypertension 2. Cor pulmonale 3. Chronic respiratory failure on O2 4. History of DVT 5. Traumatic brain injury 6. Bipolar disorder 7 Chronic right heart failure In the fall of 2020, patient was referred to cardiology for right heart cath. this was to be arranged at [facility], but apparently it was denied by insurance purposes. He follows with [facility]mon[facility] but no recent visits. Patient presented yesterday to PCP office with complaints of SOB. Found to be significantly hypoxic and lethargic with oxygen levels in the 70's on room air. Sent to the ER for evaluation via EMS. On arrival, patient started on BIPAP with improved oxygenation and mentation. IV furosemide also initiated. Chest CT negative for pulmonary embolus, but consistent with possible pneumonia. Started on antibiotics. Troponin minimally elevated. Patient denied chest pain. EKG with NSR with mild ST/T wave abnormality in anterolateral leads and prolonged QT. At time of consult, patient sleeping on BIPAP. Awakens easily and answers questions appropriately. Denies chest pain. Reports SOB less labored with BIPAP. No dizziness. No cough or fever or chills currently. Allergies Allergy/AdvReac Type Severity Reaction Status Date / Time No Known Allergies Allergy Verified 05/05/21 16:21 Home Medications Medication Instructions Recorded Confirmed Type levothyroxine 75 mcg tablet 75 mcg PO DAILY 06/24/18 05/05/21 History aripiprazole 400 mg intramuscular 400 mg IM DIRECTED 02/16/19 05/05/21 History suspension,extended release (Abilifjyoti Maintena) divalproex 500 mg tablet,extended 1,000 mg PO QAM 02/16/19 05/05/21 History release 24 hr divalproex 500 mg tablet,extended 1,500 mg PO HS 02/16/19 05/05/21 History release 24 hr acetaminophen 500 mg tablet 1,000 mg PO DAILY 11/15/19 05/05/21 History cholecalciferol (vitamin D3) 50 50 mcg PO DAILY 11/15/19 05/05/21 History mcg (2,000 unit) tablet cyanocobalamin (vitamin B-12) 1,000 mcg PO DAILY 11/15/19 05/05/21 History 1,000 mcg tablet finasteride 5 mg tablet 5 mg PO QAM 11/15/19 05/05/21 History gabapentin 100 mg capsule 200 mg PO TID 11/15/19 05/05/21 History melatonin 5 mg tablet 5 mg PO HS 11/15/19 05/05/21 History menthol 4 % topical gel (Biofreeze 1 applic TOPICAL TID PRN 11/15/19 05/05/21 History (menthol)) mirtazapine 7.5 mg tablet 7.5 mg PO QPM 11/15/19 05/05/21 History multivitamin 1 tab PO DAILY 11/15/19 05/05/21 History tamsulosin 0.4 mg capsule 0.4 mg PO DAILY 11/15/19 05/05/21 History lisinopril 2.5 mg tablet 2.5 mg PO DAILY 10/31/20 05/05/21 History atorvastatin 40 mg tablet 40 mg PO DAILY 05/05/21 05/05/21 History camphor-methyl salicylate-menthol 1 patch TOPICAL DAILY PRN 05/05/21 05/05/21 History topical patch penicillin V potassium 500 mg 500 mg PO Q8 05/05/21 05/05/21 History tablet torsemide 20 mg tablet 20 mg PO BID 05/05/21 05/05/21 History Patient History Medical History Atrial septal aneurysm per [facility] records Bipolar disorder CKD (chronic kidney disease), stage III Cor pulmonale COVID-19 virus infection Dizziness History of COVID-19 ~11/2019 per records. History of DVT (deep vein thrombosis) per [facility] records History of electroconvulsive therapy History of Helicobacter pylori infection History of traumatic brain injury History of small right tentorial SDH 06/2018 while on Xarelto for a provoked DVT. Repeat CT scan in 07/2018 revealed resolution. Hx of pulmonary hypertension per [facility] records Hyperlipidemia Hypertension Hypothyroidism Hypoxia No pertinent family history Pedal edema Pneumonia hx of covid pneumonia per records Seizure hx of seizure disorder per [facility] records Severe pulmonary hypertension Vitiligo Surgical History History of colonoscopy with polypectomy History of esophagogastroduodenoscopy (EGD) Positive H. 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 Surveillance Required: No Beliefs That Will Affect Care: None marital status: Unknown Current Living Situation: Personal Care Facility Current Living Situation Comment: [facility] current occupational status: retired current occupation: [employer] for 35.5 yrs Other Information That Helps Us Care for You: No Feels Safe at Home: Yes Safety Concerns: Feels Safe At This Time Assistive Devices: BiPap and Oxygen - Continuous Assistive Devices Comment: Oxygen concentrator with patient Review of Systems Review of Systems: Other (Limited rieview of systems due to BIPAP in place) Physical Exam Constitutional: WD/WN, vitals as above + morbidly obese and comfortable; no acute distress Results & Data ([facility]) Vital Signs (Past 12 Hours) Vital Signs Temp Pulse Pulse Resp BP Pulse Ox 05/06/21 07:20 36.6 C 96 H 18 123/77 97 05/06/21 07:19 95 H 20 94 05/06/21 03:53 36.8 C 91 H 20 110/66 95 05/06/21 01:15 89 05/05/21 23:59 89 18 93 05/05/21 23:20 36.6 C 92 H 16 118/78 98 Laboratory Results 05/06/21 05/06/21 05/06/21 Range/Units Unknown 01:38 01:38 WBC (4.8-10.8) K/uL RBC (4.7-6.1) M/uL Hgb (14.0-18.0) g/dL Hct (42-52) % MCV (80-100) fL MCH (25-34) pg MCHC (32-36) g/dL RDW Std Deviation (36.4-46.3) fL RDW Coeff of Tai (11.5-14.5) % Plt Count (130-400) K/uL MPV (7.4-10.4) fL Immature Gran % (Auto) % Neut % (Auto) % Lymph % (Auto) % Reagan % (Auto) % Eos % (Auto) % Baso % (Auto) % Neut # (Auto) (1.4-6.5) K/uL Lymph # (Auto) (1.2-3.4) K/uL Reagan # (Auto) (0.11-0.59) K/uL Eos # (Auto) (0-0.5) K/uL Baso # (Auto) (0-0.2) K/uL Immature Gran # (Auto) (0.00-0.02) K/uL PT (9.0-12.0) Seconds INR (0.9-1.1) APTT (21.0-31.0) Seconds PTT Ratio ABG pH ABG pCO2 ABG pO2 ABG HCO3 ABG O2 Saturation ABG Base Excess Gopal Test VBG pH (7.36-7.41) VBG pCO2 (38-50) mmHg VBG pO2 mmHg VBG HCO3 mmol/L VBG O2 Saturation % VBG Base Excess mEq/L Barometric Pressure mm/Hg Oxygen Given Sodium 147 H (136-145) mmol/L Potassium 4.3 Chloride 101 (98-107) mmol/L Carbon Dioxide 43 H* (21-32) mmol/L Anion Gap 3 (3-11) BUN 31 H (6-23) mg/dl Creatinine 1.65 H (0.6-1.4) mg/dl Est Cr Clr Drug Dosing 50.3 ml/min Est GFR ( Amer) 48.0 ml/min Est GFR (Non-Af Amer) 41.4 ml/min BUN/Creatinine Ratio 18.8 (10-20) Glucose 95 (70-99(Fasting)) mg/dl Lactate (0.4-2.0) mmol/L Calcium 8.9 (8.5-10.1) mg/dl Magnesium (1.7-2.4) mg/dl Total Bilirubin (0.2-1.0) mg/dl AST ALT (7-52) U/L Alkaline Phosphatase (34-104) U/L Ammonia (18-72) umol/L Troponin I (0-0.04) ng/ml B-Natriuretic Peptide (0-100) pg/ml Total Protein (6.0-8.3) gm/dl Albumin (3.4-5.0) gm/dl Globulin (2.5-4.0) gm/dl Albumin/Globulin Ratio (0.9-2) Procalcitonin 0.10 (0-0.5) ng/ml TSH (0.300-4.500) uIu/ml Urine Color Urine Appearance (Clear) Urine pH (4.5-7.5) Ur Specific [place] (1.000-1.030) Urine Protein (Negative) Urine Glucose (UA) (Negative) Urine Ketones (Negative) Urine Blood (Negative) Urine Nitrite (Negative) Urine Bilirubin (Negative) Urine Urobilinogen (Negative) Ur Leukocyte Esterase (Negative) Urine WBC (Auto) (0-5) /hpf Urine RBC (Auto) (0-4) /hpf U Hyaline Cast (Auto) (0-5) /lpf U Epithel Cells (Auto) (0-5) /lpf Urine Bacteria (Auto) (Negative) Nasal Screen MRSA (PCR) Negative (Negative) Urine Opiates Screen (Neg) Ur Methadone, Qual (Neg) Urine Barbiturates (Neg) Valproic Acid Ur Phencyclidine (PCP) (Neg) U Amphetamin/Meth Scrn (Neg) MDMA (Ecstasy) Screen (Neg) U Benzodiazepines Scrn (Neg) Ur Cocaine Metabolite (Neg) U Marijuana (THC) Screen (Neg) Hepatitis C Ab (EIA) Hep C Ab Signal/Cutoff Influ A Molecular Assay (Negative) Influ B Molecular Assay (Negative) SARS-CoV-2, RNA, NAAT (NEGATIVE) 05/06/21 05/06/21 05/05/21 Range/Units 01:38 01:38 20:43 WBC 6.26 (4.8-10.8) K/uL RBC 4.80 (4.7-6.1) M/uL Hgb 15.7 (14.0-18.0) g/dL Hct 48.8 (42-52) % MCV 101.7 H (80-100) fL MCH 32.7 (25-34) pg MCHC 32.2 (32-36) g/dL RDW Std Deviation 56.3 H (36.4-46.3) fL RDW Coeff of Tai 15.3 H (11.5-14.5) % Plt Count 182 (130-400) K/uL MPV 9.5 (7.4-10.4) fL Immature Gran % (Auto) % Neut % (Auto) % Lymph % (Auto) % Reagan % (Auto) % Eos % (Auto) % Baso % (Auto) % Neut # (Auto) (1.4-6.5) K/uL Lymph # (Auto) (1.2-3.4) K/uL Reagan # (Auto) (0.11-0.59) K/uL Eos # (Auto) (0-0.5) K/uL Baso # (Auto) (0-0.2) K/uL Immature Gran # (Auto) (0.00-0.02) K/uL PT (9.0-12.0) Seconds INR (0.9-1.1) APTT (21.0-31.0) Seconds PTT Ratio ABG pH ABG pCO2 ABG pO2 ABG HCO3 ABG O2 Saturation ABG Base Excess Gopal Test VBG pH (7.36-7.41) VBG pCO2 (38-50) mmHg VBG pO2 mmHg VBG HCO3 mmol/L VBG O2 Saturation % VBG Base Excess mEq/L Barometric Pressure mm/Hg Oxygen Given Sodium (136-145) mmol/L Potassium Chloride (98-107) mmol/L Carbon Dioxide (21-32) mmol/L Anion Gap (3-11) BUN (6-23) mg/dl Creatinine (0.6-1.4) mg/dl Est Cr Clr Drug Dosing ml/min Est GFR ( Amer) ml/min Est GFR (Non-Af Amer) ml/min BUN/Creatinine Ratio (10-20) Glucose (70-99(Fasting)) mg/dl Lactate (0.4-2.0) mmol/L Calcium (8.5-10.1) mg/dl Magnesium (1.7-2.4) mg/dl Total Bilirubin (0.2-1.0) mg/dl AST ALT (7-52) U/L Alkaline Phosphatase (34-104) U/L Ammonia (18-72) umol/L Troponin I 0.26 H* 0.29 H* (0-0.04) ng/ml B-Natriuretic Peptide (0-100) pg/ml Total Protein (6.0-8.3) gm/dl Albumin (3.4-5.0) gm/dl Globulin (2.5-4.0) gm/dl Albumin/Globulin Ratio (0.9-2) Procalcitonin (0-0.5) ng/ml TSH (0.300-4.500) uIu/ml Urine Color Urine Appearance (Clear) Urine pH (4.5-7.5) Ur Specific [place] (1.000-1.030) Urine Protein (Negative) Urine Glucose (UA) (Negative) Urine Ketones (Negative) Urine Blood (Negative) Urine Nitrite (Negative) Urine Bilirubin (Negative) Urine Urobilinogen (Negative) Ur Leukocyte Esterase (Negative) Urine WBC (Auto) (0-5) /hpf Urine RBC (Auto) (0-4) /hpf U Hyaline Cast (Auto) (0-5) /lpf U Epithel Cells (Auto) (0-5) /lpf Urine Bacteria (Auto) (Negative) Nasal Screen MRSA (PCR) (Negative) Urine Opiates Screen (Neg) Ur Methadone, Qual (Neg) Urine Barbiturates (Neg) Valproic Acid Ur Phencyclidine (PCP) (Neg) U Amphetamin/Meth Scrn (Neg) MDMA (Ecstasy) Screen (Neg) U Benzodiazepines Scrn (Neg) Ur Cocaine Metabolite (Neg) U Marijuana (THC) Screen (Neg) Hepatitis C Ab (EIA) Hep C Ab Signal/Cutoff Influ A Molecular Assay (Negative) Influ B Molecular Assay (Negative) SARS-CoV-2, RNA, NAAT (NEGATIVE) 05/05/21 05/05/21 05/05/21 Range/Units 18:06 18:06 17:49 WBC (4.8-10.8) K/uL RBC (4.7-6.1) M/uL Hgb (14.0-18.0) g/dL Hct (42-52) % MCV (80-100) fL MCH (25-34) pg MCHC (32-36) g/dL RDW Std Deviation (36.4-46.3) fL RDW Coeff of Tai (11.5-14.5) % Plt Count (130-400) K/uL MPV (7.4-10.4) fL Immature Gran % (Auto) % Neut % (Auto) % Lymph % (Auto) % Reagan % (Auto) % Eos % (Auto) % Baso % (Auto) % Neut # (Auto) (1.4-6.5) K/uL Lymph # (Auto) (1.2-3.4) K/uL Reagan # (Auto) (0.11-0.59) K/uL Eos # (Auto) (0-0.5) K/uL Baso # (Auto) (0-0.2) K/uL Immature Gran # (Auto) (0.00-0.02) K/uL PT (9.0-12.0) Seconds INR (0.9-1.1) APTT (21.0-31.0) Seconds PTT Ratio ABG pH Cancelled ABG pCO2 Cancelled ABG pO2 Cancelled ABG HCO3 Cancelled ABG O2 Saturation Cancelled ABG Base Excess Cancelled Gopal Test Cancelled VBG pH (7.36-7.41) VBG pCO2 (38-50) mmHg VBG pO2 mmHg VBG HCO3 mmol/L VBG O2 Saturation % VBG Base Excess mEq/L Barometric Pressure Cancelled mm/Hg Oxygen Given Cancelled Sodium (136-145) mmol/L Potassium Chloride (98-107) mmol/L Carbon Dioxide (21-32) mmol/L Anion Gap (3-11) BUN (6-23) mg/dl Creatinine (0.6-1.4) mg/dl Est Cr Clr Drug Dosing ml/min Est GFR ( Amer) ml/min Est GFR (Non-Af Amer) ml/min BUN/Creatinine Ratio (10-20) Glucose (70-99(Fasting)) mg/dl Lactate (0.4-2.0) mmol/L Calcium (8.5-10.1) mg/dl Magnesium (1.7-2.4) mg/dl Total Bilirubin (0.2-1.0) mg/dl AST ALT (7-52) U/L Alkaline Phosphatase (34-104) U/L Ammonia (18-72) umol/L Troponin I (0-0.04) ng/ml B-Natriuretic Peptide (0-100) pg/ml Total Protein (6.0-8.3) gm/dl Albumin (3.4-5.0) gm/dl Globulin (2.5-4.0) gm/dl Albumin/Globulin Ratio (0.9-2) Procalcitonin (0-0.5) ng/ml TSH (0.300-4.500) uIu/ml Urine Color Yellow Urine Appearance Clear (Clear) Urine pH 6.0 (4.5-7.5) Ur Specific [place] 1.029 (1.000-1.030) Urine Protein 1+ H (Negative) Urine Glucose (UA) Negative (Negative) Urine Ketones Negative (Negative) Urine Blood Negative (Negative) Urine Nitrite Negative (Negative) Urine Bilirubin Negative (Negative) Urine Urobilinogen Negative (Negative) Ur Leukocyte Esterase Negative (Negative) Urine WBC (Auto) 0 (0-5) /hpf Urine RBC (Auto) 0-4 (0-4) /hpf U Hyaline Cast (Auto) 0 (0-5) /lpf U Epithel Cells (Auto) 5-10 H (0-5) /lpf Urine Bacteria (Auto) Negative (Negative) Nasal Screen MRSA (PCR) (Negative) Urine Opiates Screen Neg (Neg) Ur Methadone, Qual Neg (Neg) Urine Barbiturates Neg (Neg) Valproic Acid Ur Phencyclidine (PCP) Neg (Neg) U Amphetamin/Meth Scrn Neg (Neg) MDMA (Ecstasy) Screen Neg (Neg) U Benzodiazepines Scrn Neg (Neg) Ur Cocaine Metabolite Neg (Neg) U Marijuana (THC) Screen Neg (Neg) Hepatitis C Ab (EIA) Hep C Ab Signal/Cutoff Influ A Molecular Assay (Negative) Influ B Molecular Assay (Negative) SARS-CoV-2, RNA, NAAT (NEGATIVE) 05/05/21 05/05/21 05/05/21 Range/Units 15:49 15:49 15:49 WBC (4.8-10.8) K/uL RBC (4.7-6.1) M/uL Hgb (14.0-18.0) g/dL Hct (42-52) % MCV (80-100) fL MCH (25-34) pg MCHC (32-36) g/dL RDW Std Deviation (36.4-46.3) fL RDW Coeff of Tai (11.5-14.5) % Plt Count (130-400) K/uL MPV (7.4-10.4) fL Immature Gran % (Auto) % Neut % (Auto) % Lymph % (Auto) % Reagan % (Auto) % Eos % (Auto) % Baso % (Auto) % Neut # (Auto) (1.4-6.5) K/uL Lymph # (Auto) (1.2-3.4) K/uL Reagan # (Auto) (0.11-0.59) K/uL Eos # (Auto) (0-0.5) K/uL Baso # (Auto) (0-0.2) K/uL Immature Gran # (Auto) (0.00-0.02) K/uL PT (9.0-12.0) Seconds INR (0.9-1.1) APTT (21.0-31.0) Seconds PTT Ratio ABG pH ABG pCO2 ABG pO2 ABG HCO3 ABG O2 Saturation ABG Base Excess Gopal Test VBG pH (7.36-7.41) VBG pCO2 (38-50) mmHg VBG pO2 mmHg VBG HCO3 mmol/L VBG O2 Saturation % VBG Base Excess mEq/L Barometric Pressure mm/Hg Oxygen Given Sodium (136-145) mmol/L Potassium 4.5 Chloride (98-107) mmol/L Carbon Dioxide (21-32) mmol/L Anion Gap (3-11) BUN (6-23) mg/dl Creatinine (0.6-1.4) mg/dl Est Cr Clr Drug Dosing ml/min Est GFR ( Amer) ml/min Est GFR (Non-Af Amer) ml/min BUN/Creatinine Ratio (10-20) Glucose (70-99(Fasting)) mg/dl Lactate (0.4-2.0) mmol/L Calcium (8.5-10.1) mg/dl Magnesium (1.7-2.4) mg/dl Total Bilirubin (0.2-1.0) mg/dl AST 29 ALT (7-52) U/L Alkaline Phosphatase (34-104) U/L Ammonia (18-72) umol/L Troponin I (0-0.04) ng/ml B-Natriuretic Peptide (0-100) pg/ml Total Protein (6.0-8.3) gm/dl Albumin (3.4-5.0) gm/dl Globulin (2.5-4.0) gm/dl Albumin/Globulin Ratio (0.9-2) Procalcitonin (0-0.5) ng/ml TSH 2.225 (0.300-4.500) uIu/ml Urine Color Urine Appearance (Clear) Urine pH (4.5-7.5) Ur Specific [place] (1.000-1.030) Urine Protein (Negative) Urine Glucose (UA) (Negative) Urine Ketones (Negative) Urine Blood (Negative) Urine Nitrite (Negative) Urine Bilirubin (Negative) Urine Urobilinogen (Negative) Ur Leukocyte Esterase (Negative) Urine WBC (Auto) (0-5) /hpf Urine RBC (Auto) (0-4) /hpf U Hyaline Cast (Auto) (0-5) /lpf U Epithel Cells (Auto) (0-5) /lpf Urine Bacteria (Auto) (Negative) Nasal Screen MRSA (PCR) (Negative) Urine Opiates Screen (Neg) Ur Methadone, Qual (Neg) Urine Barbiturates (Neg) Valproic Acid Pending Ur Phencyclidine (PCP) (Neg) U Amphetamin/Meth Scrn (Neg) MDMA (Ecstasy) Screen (Neg) U Benzodiazepines Scrn (Neg) Ur Cocaine Metabolite (Neg) U Marijuana (THC) Screen (Neg) Hepatitis C Ab (EIA) Hep C Ab Signal/Cutoff Influ A Molecular Assay (Negative) Influ B Molecular Assay (Negative) SARS-CoV-2, RNA, NAAT (NEGATIVE) 05/05/21 05/05/21 05/05/21 Range/Units 15:49 15:49 15:49 WBC (4.8-10.8) K/uL RBC (4.7-6.1) M/uL Hgb (14.0-18.0) g/dL Hct (42-52) % MCV (80-100) fL MCH (25-34) pg MCHC (32-36) g/dL RDW Std Deviation (36.4-46.3) fL RDW Coeff of Tai (11.5-14.5) % Plt Count (130-400) K/uL MPV (7.4-10.4) fL Immature Gran % (Auto) % Neut % (Auto) % Lymph % (Auto) % Reagan % (Auto) % Eos % (Auto) % Baso % (Auto) % Neut # (Auto) (1.4-6.5) K/uL Lymph # (Auto) (1.2-3.4) K/uL Reagan # (Auto) (0.11-0.59) K/uL Eos # (Auto) (0-0.5) K/uL Baso # (Auto) (0-0.2) K/uL Immature Gran # (Auto) (0.00-0.02) K/uL PT (9.0-12.0) Seconds INR (0.9-1.1) APTT (21.0-31.0) Seconds PTT Ratio ABG pH ABG pCO2 ABG pO2 ABG HCO3 ABG O2 Saturation ABG Base Excess Gopal Test VBG pH (7.36-7.41) VBG pCO2 (38-50) mmHg VBG pO2 mmHg VBG HCO3 mmol/L VBG O2 Saturation % VBG Base Excess mEq/L Barometric Pressure mm/Hg Oxygen Given Sodium (136-145) mmol/L Potassium Chloride (98-107) mmol/L Carbon Dioxide (21-32) mmol/L Anion Gap (3-11) BUN (6-23) mg/dl Creatinine (0.6-1.4) mg/dl Est Cr Clr Drug Dosing ml/min Est GFR ( Amer) ml/min Est GFR (Non-Af Amer) ml/min BUN/Creatinine Ratio (10-20) Glucose (70-99(Fasting)) mg/dl Lactate 0.9 (0.4-2.0) mmol/L Calcium (8.5-10.1) mg/dl Magnesium (1.7-2.4) mg/dl Total Bilirubin (0.2-1.0) mg/dl AST ALT (7-52) U/L Alkaline Phosphatase (34-104) U/L Ammonia 78.0 H (18-72) umol/L Troponin I (0-0.04) ng/ml B-Natriuretic Peptide 754 H (0-100) pg/ml Total Protein (6.0-8.3) gm/dl Albumin (3.4-5.0) gm/dl Globulin (2.5-4.0) gm/dl Albumin/Globulin Ratio (0.9-2) Procalcitonin (0-0.5) ng/ml TSH (0.300-4.500) uIu/ml Urine Color Urine Appearance (Clear) Urine pH (4.5-7.5) Ur Specific [place] (1.000-1.030) Urine Protein (Negative) Urine Glucose (UA) (Negative) Urine Ketones (Negative) Urine Blood (Negative) Urine Nitrite (Negative) Urine Bilirubin (Negative) Urine Urobilinogen (Negative) Ur Leukocyte Esterase (Negative) Urine WBC (Auto) (0-5) /hpf Urine RBC (Auto) (0-4) /hpf U Hyaline Cast (Auto) (0-5) /lpf U Epithel Cells (Auto) (0-5) /lpf Urine Bacteria (Auto) (Negative) Nasal Screen MRSA (PCR) (Negative) Urine Opiates Screen (Neg) Ur Methadone, Qual (Neg) Urine Barbiturates (Neg) Valproic Acid Ur Phencyclidine (PCP) (Neg) U Amphetamin/Meth Scrn (Neg) MDMA (Ecstasy) Screen (Neg) U Benzodiazepines Scrn (Neg) Ur Cocaine Metabolite (Neg) U Marijuana (THC) Screen (Neg) Hepatitis C Ab (EIA) Hep C Ab Signal/Cutoff Influ A Molecular Assay (Negative) Influ B Molecular Assay (Negative) SARS-CoV-2, RNA, NAAT (NEGATIVE) 05/05/21 05/05/21 05/05/21 Range/Units 15:41 14:18 14:18 WBC (4.8-10.8) K/uL RBC (4.7-6.1) M/uL Hgb (14.0-18.0) g/dL Hct (42-52) % MCV (80-100) fL MCH (25-34) pg MCHC (32-36) g/dL RDW Std Deviation (36.4-46.3) fL RDW Coeff of Tai (11.5-14.5) % Plt Count (130-400) K/uL MPV (7.4-10.4) fL Immature Gran % (Auto) % Neut % (Auto) % Lymph % (Auto) % Reagan % (Auto) % Eos % (Auto) % Baso % (Auto) % Neut # (Auto) (1.4-6.5) K/uL Lymph # (Auto) (1.2-3.4) K/uL Reagan # (Auto) (0.11-0.59) K/uL Eos # (Auto) (0-0.5) K/uL Baso # (Auto) (0-0.2) K/uL Immature Gran # (Auto) (0.00-0.02) K/uL PT (9.0-12.0) Seconds INR (0.9-1.1) APTT (21.0-31.0) Seconds PTT Ratio ABG pH ABG pCO2 ABG pO2 ABG HCO3 ABG O2 Saturation ABG Base Excess Gopal Test VBG pH 7.26 L (7.36-7.41) VBG pCO2 81 H (38-50) mmHg VBG pO2 34 mmHg VBG HCO3 36 mmol/L VBG O2 Saturation < 60.0 % VBG Base Excess 4.8 mEq/L Barometric Pressure 735.9 mm/Hg Oxygen Given Sodium (136-145) mmol/L Potassium Chloride (98-107) mmol/L Carbon Dioxide (21-32) mmol/L Anion Gap (3-11) BUN (6-23) mg/dl Creatinine (0.6-1.4) mg/dl Est Cr Clr Drug Dosing ml/min Est GFR ( Amer) ml/min Est GFR (Non-Af Amer) ml/min BUN/Creatinine Ratio (10-20) Glucose (70-99(Fasting)) mg/dl Lactate (0.4-2.0) mmol/L Calcium (8.5-10.1) mg/dl Magnesium (1.7-2.4) mg/dl Total Bilirubin (0.2-1.0) mg/dl AST ALT (7-52) U/L Alkaline Phosphatase (34-104) U/L Ammonia (18-72) umol/L Troponin I (0-0.04) ng/ml B-Natriuretic Peptide (0-100) pg/ml Total Protein (6.0-8.3) gm/dl Albumin (3.4-5.0) gm/dl Globulin (2.5-4.0) gm/dl Albumin/Globulin Ratio (0.9-2) Procalcitonin (0-0.5) ng/ml TSH (0.300-4.500) uIu/ml Urine Color Urine Appearance (Clear) Urine pH (4.5-7.5) Ur Specific [place] (1.000-1.030) Urine Protein (Negative) Urine Glucose (UA) (Negative) Urine Ketones (Negative) Urine Blood (Negative) Urine Nitrite (Negative) Urine Bilirubin (Negative) Urine Urobilinogen (Negative) Ur Leukocyte Esterase (Negative) Urine WBC (Auto) (0-5) /hpf Urine RBC (Auto) (0-4) /hpf U Hyaline Cast (Auto) (0-5) /lpf U Epithel Cells (Auto) (0-5) /lpf Urine Bacteria (Auto) (Negative) Nasal Screen MRSA (PCR) (Negative) Urine Opiates Screen (Neg) Ur Methadone, Qual (Neg) Urine Barbiturates (Neg) Valproic Acid Ur Phencyclidine (PCP) (Neg) U Amphetamin/Meth Scrn (Neg) MDMA (Ecstasy) Screen (Neg) U Benzodiazepines Scrn (Neg) Ur Cocaine Metabolite (Neg) U Marijuana (THC) Screen (Neg) Hepatitis C Ab (EIA) Pending Hep C Ab Signal/Cutoff Pending Influ A Molecular Assay Negative (Negative) Influ B Molecular Assay Negative (Negative) SARS-CoV-2, RNA, NAAT (NEGATIVE) 05/05/21 05/05/21 05/05/21 Range/Units 14:18 14:18 14:18 WBC (4.8-10.8) K/uL RBC (4.7-6.1) M/uL Hgb (14.0-18.0) g/dL Hct (42-52) % MCV (80-100) fL MCH (25-34) pg MCHC (32-36) g/dL RDW Std Deviation (36.4-46.3) fL RDW Coeff of Tai (11.5-14.5) % Plt Count (130-400) K/uL MPV (7.4-10.4) fL Immature Gran % (Auto) % Neut % (Auto) % Lymph % (Auto) % Reagan % (Auto) % Eos % (Auto) % Baso % (Auto) % Neut # (Auto) (1.4-6.5) K/uL Lymph # (Auto) (1.2-3.4) K/uL Reagan # (Auto) (0.11-0.59) K/uL Eos # (Auto) (0-0.5) K/uL Baso # (Auto) (0-0.2) K/uL Immature Gran # (Auto) (0.00-0.02) K/uL PT 10.9 (9.0-12.0) Seconds INR 1.0 (0.9-1.1) APTT 26.2 (21.0-31.0) Seconds PTT Ratio 1.0 ABG pH ABG pCO2 ABG pO2 ABG HCO3 ABG O2 Saturation ABG Base Excess Gopal Test VBG pH (7.36-7.41) VBG pCO2 (38-50) mmHg VBG pO2 mmHg VBG HCO3 mmol/L VBG O2 Saturation % VBG Base Excess mEq/L Barometric Pressure mm/Hg Oxygen Given Sodium 144 (136-145) mmol/L Potassium TNP Chloride 101 (98-107) mmol/L Carbon Dioxide 34 H (21-32) mmol/L Anion Gap 9 (3-11) BUN 36 H (6-23) mg/dl Creatinine 1.63 H (0.6-1.4) mg/dl Est Cr Clr Drug Dosing 53.4 ml/min Est GFR ( Amer) 48.7 ml/min Est GFR (Non-Af Amer) 42.1 ml/min BUN/Creatinine Ratio 22.1 H (10-20) Glucose 106 H (70-99(Fasting)) mg/dl Lactate (0.4-2.0) mmol/L Calcium 9.0 (8.5-10.1) mg/dl Magnesium 1.8 (1.7-2.4) mg/dl Total Bilirubin 0.4 (0.2-1.0) mg/dl AST TNP ALT 35 (7-52) U/L Alkaline Phosphatase 84 (34-104) U/L Ammonia (18-72) umol/L Troponin I 0.26 H* (0-0.04) ng/ml B-Natriuretic Peptide (0-100) pg/ml Total Protein 6.8 (6.0-8.3) gm/dl Albumin 4.1 (3.4-5.0) gm/dl Globulin 2.7 (2.5-4.0) gm/dl Albumin/Globulin Ratio 1.5 (0.9-2) Procalcitonin 0.11 (0-0.5) ng/ml TSH (0.300-4.500) uIu/ml Urine Color Urine Appearance (Clear) Urine pH (4.5-7.5) Ur Specific [place] (1.000-1.030) Urine Protein (Negative) Urine Glucose (UA) (Negative) Urine Ketones (Negative) Urine Blood (Negative) Urine Nitrite (Negative) Urine Bilirubin (Negative) Urine Urobilinogen (Negative) Ur Leukocyte Esterase (Negative) Urine WBC (Auto) (0-5) /hpf Urine RBC (Auto) (0-4) /hpf U Hyaline Cast (Auto) (0-5) /lpf U Epithel Cells (Auto) (0-5) /lpf Urine Bacteria (Auto) (Negative) Nasal Screen MRSA (PCR) (Negative) Urine Opiates Screen (Neg) Ur Methadone, Qual (Neg) Urine Barbiturates (Neg) Valproic Acid Ur Phencyclidine (PCP) (Neg) U Amphetamin/Meth Scrn (Neg) MDMA (Ecstasy) Screen (Neg) U Benzodiazepines Scrn (Neg) Ur Cocaine Metabolite (Neg) U Marijuana (THC) Screen (Neg) Hepatitis C Ab (EIA) Hep C Ab Signal/Cutoff Influ A Molecular Assay (Negative) Influ B Molecular Assay (Negative) SARS-CoV-2, RNA, NAAT (NEGATIVE) 05/05/21 05/05/21 Range/Units 14:18 14:10 WBC 5.84 (4.8-10.8) K/uL RBC 4.93 (4.7-6.1) M/uL Hgb 16.4 (14.0-18.0) g/dL Hct 49.9 (42-52) % MCV 101.2 H (80-100) fL MCH 33.3 (25-34) pg MCHC 32.9 (32-36) g/dL RDW Std Deviation 56.0 H (36.4-46.3) fL RDW Coeff of Tai 15.2 H (11.5-14.5) % Plt Count 194 (130-400) K/uL MPV 10.3 (7.4-10.4) fL Immature Gran % (Auto) 0.2 % Neut % (Auto) 61.2 % Lymph % (Auto) 26.2 % Reagan % (Auto) 11.5 % Eos % (Auto) 0.7 % Baso % (Auto) 0.2 % Neut # (Auto) 3.58 (1.4-6.5) K/uL Lymph # (Auto) 1.53 (1.2-3.4) K/uL Reagan # (Auto) 0.67 H (0.11-0.59) K/uL Eos # (Auto) 0.04 (0-0.5) K/uL Baso # (Auto) 0.01 (0-0.2) K/uL Immature Gran # (Auto) 0.01 (0.00-0.02) K/uL PT (9.0-12.0) Seconds INR (0.9-1.1) APTT (21.0-31.0) Seconds PTT Ratio ABG pH ABG pCO2 ABG pO2 ABG HCO3 ABG O2 Saturation ABG Base Excess Gopal Test VBG pH (7.36-7.41) VBG pCO2 (38-50) mmHg VBG pO2 mmHg VBG HCO3 mmol/L VBG O2 Saturation % VBG Base Excess mEq/L Barometric Pressure mm/Hg Oxygen Given Sodium (136-145) mmol/L Potassium Chloride (98-107) mmol/L Carbon Dioxide (21-32) mmol/L Anion Gap (3-11) BUN (6-23) mg/dl Creatinine (0.6-1.4) mg/dl Est Cr Clr Drug Dosing ml/min Est GFR ( Amer) ml/min Est GFR (Non-Af Amer) ml/min BUN/Creatinine Ratio (10-20) Glucose (70-99(Fasting)) mg/dl Lactate (0.4-2.0) mmol/L Calcium (8.5-10.1) mg/dl Magnesium (1.7-2.4) mg/dl Total Bilirubin (0.2-1.0) mg/dl AST ALT (7-52) U/L Alkaline Phosphatase (34-104) U/L Ammonia (18-72) umol/L Troponin I (0-0.04) ng/ml B-Natriuretic Peptide (0-100) pg/ml Total Protein (6.0-8.3) gm/dl Albumin (3.4-5.0) gm/dl Globulin (2.5-4.0) gm/dl Albumin/Globulin Ratio (0.9-2) Procalcitonin (0-0.5) ng/ml TSH (0.300-4.500) uIu/ml Urine Color Urine Appearance (Clear) Urine pH (4.5-7.5) Ur Specific [place] (1.000-1.030) Urine Protein (Negative) Urine Glucose (UA) (Negative) Urine Ketones (Negative) Urine Blood (Negative) Urine Nitrite (Negative) Urine Bilirubin (Negative) Urine Urobilinogen (Negative) Ur Leukocyte Esterase (Negative) Urine WBC (Auto) (0-5) /hpf Urine RBC (Auto) (0-4) /hpf U Hyaline Cast (Auto) (0-5) /lpf U Epithel Cells (Auto) (0-5) /lpf Urine Bacteria (Auto) (Negative) Nasal Screen MRSA (PCR) (Negative) Urine Opiates Screen (Neg) Ur Methadone, Qual (Neg) Urine Barbiturates (Neg) Valproic Acid Ur Phencyclidine (PCP) (Neg) U Amphetamin/Meth Scrn (Neg) MDMA (Ecstasy) Screen (Neg) U Benzodiazepines Scrn (Neg) Ur Cocaine Metabolite (Neg) U Marijuana (THC) Screen (Neg) Hepatitis C Ab (EIA) Hep C Ab Signal/Cutoff Influ A Molecular Assay (Negative) Influ B Molecular Assay (Negative) SARS-CoV-2, RNA, NAAT NEGATIVE (NEGATIVE) Diagnostic Findings Telemetry reviewed - Normal sinus rhythm 80-90 bpm. No arrhythmias. echo report reviewed dated 05/06/21: RV is severely dilated. RV systolic function is moderate to severely reduced. Mild TR Estimated systolic pulmonary pressure is 50-60 mmHg LV cavity is small LV is normal in structure and function. EF > 70%. EKG this morning: Normal sinus rhythm Right superior axis deviation Right ventricular hypertrophy ST & T wave abnormality, consider anterior ischemia Abnormal ECG When compared with ECG of 06-MAY-2021 05:33, (unconfirmed) No significant change was found Repeat EKG - Normal sinus rhythm Right superior axis deviation Right ventricular hypertrophy ST & T wave abnormality in anterior leads QT has shortened Chest CTA report reviewed dated 05/05/21: Impression: 1. No CTA evidence for pulmonary embolus. 2. Small right-sided pleural effusion and patchy alveolar opacity at the right lung base with air bronchograms. The findings are characteristic of early pneumonia. 3. Small left pleural effusion with left basilar atelectasis. 4. No evidence for vascular congestion. 5. Moderate cardiomegaly. Head CT IMPRESSION: 1. No acute intracerebral pathology. 2. Mild cerebral cortical atrophy and remote small vessel disease. Chest Xray report reviewed: IMPRESSION: 1. Moderate pulmonary edema. 2. If the small bilateral pleural effusions. 3. Left retrocardiac airspace opacity may represent atelectasis, pneumonia, and/or aspiration. EKG on admission: Normal sinus rhythm Right ventricular hypertrophy Poor R wave progression, consider anterior HI vs. lead placement vs. LVH Nonspecific ST and T wave abnormality Abnormal ECG When compared with ECG of 14-NOV-2019 22:34, Nonspecific T wave abnormality now evident in Anterolateral leads QT has lengthened Echo report reviewed from Nov 2020: Interpretation Summary The examination is adequate to evaluate the referral indication. The Ultrasound enhancement agent, Definity, was administered to help improve delineation of the endocardial border. The LV wall thickness is normal. Left ventricular cavity size is small. The qualitative LV ejection fraction is >70% (hyperdynamic). The septal motion is abnormal consistent with right ventricular pressure and volume overload. The right ventricular systolic function is severely reduced. Severe tricuspid regurgitation is present. The tricuspid regurgitation jet is eccentric and wall impinging. Severe pulmonary hypertension is present. The estimated pulmonary artery systolic pressure is 80-100mm Hg. Compared to the images obtained at the time of the previous study dated 06/26/2018, there has been interval development of severe right ventricular chamber enlargement and diffuse right ventricular systolic dysfunction. The pulmonary artery systolic pressure had been estimated to be 41 mm Hg at that time (mildly elevated) and is now 80-100 mm Hg (severely elevated). This study has what is deemed to be a "significant abnormality" consistent with ACT 112. The abnormal findings were discussed with patient at the time of the examination. The examination is adequate to evaluate the referral indication.
--- NOTE | 2021-05-06 11:40 | Electrocardiogram Report ---
Test Reason : Blood Pressure : / mmHG Vent. Rate : 092 BPM Atrial Rate : 092 BPM P-R Int : 134 ms QRS Dur : 100 ms QT Int : 336 ms P-R-T Axes : 036 186 054 degrees QTc Int : 415 ms Normal sinus rhythm Right superior axis deviation Right ventricular hypertrophy Abnormal ECG When compared with ECG of 05-MAY-2021 14:00, QT has shortened Confirmed by Melvin Peng ([id number]) on 05/06/2021 11:40:15 AM Referred By: REFERRED SELF Confirmed By:Melvin Peng
--- NOTE | 2021-05-06 12:10 | Electrocardiogram Report ---
Test Reason : Blood Pressure : / mmHG Vent. Rate : 096 BPM Atrial Rate : 096 BPM P-R Int : 130 ms QRS Dur : 096 ms QT Int : 352 ms P-R-T Axes : 038 190 028 degrees QTc Int : 444 ms Normal sinus rhythm Right superior axis deviation Right ventricular hypertrophy Abnormal ECG When compared with ECG of 06-MAY-2021 05:33, (unconfirmed) No significant change was found Confirmed by Melvin Peng ([id number]) on 05/06/2021 12:09:55 PM Referred By: REFERRED SELF Confirmed By:Melvin Peng
--- NOTE | 2021-05-06 12:15 | Pulmonary Consultation ---
Date of Consultation May 06, 2021 Assessment & Plan (1) Acquired tracheomalacia: (2) Hypercapnic respiratory failure: (3) Diastolic heart failure: (4) Pulmonary hypertension: Impression: 71-year-old male admitted with lethargy due to hypercarbic respiratory failure improving with positive airway pressure. Is also found to have significant pulmonary hypertension. I suspect the patient has WHO class II and III pulmonary hypertension secondary to obesity hypoventilation syndrome and hypercarbia with likely chronic nocturnal hypoxemia. It is difficult to assess his [place] [employer] class Recommendations: 1. We will repeat the patient's venous blood gas to ensure his CO2 is going in appropriate direction. If looks okay, he can come off BiPAP. He will continue to use BiPAP on a nightly basis and when sleeping. 2. The patient should have a outpatient polysomnography performed. This was again recommended to the patient. 3. The patient likely will need to be set up with BiPAP or AVAPS at discharge given his hypercarbia and pulmonary hypertension. 4. Agree that right heart catheterization could be performed including assessment of LVEDP. For now I would proceed with continue diuresis and treatment of the patient's hypercarbia and untreated sleep disordered breathing and potentially follow-up his echocardiogram in the future. If it remains problematic, could consider right heart catheterization at that point with oxygen and vasodilator challenges. Ideally, this should be performed at a pulmonary hypertension center of excellence. 5. With regards to this patient's significant tracheobronchial malacia, I suspect that is contributing to his hypercarbia. Again treatment is weight loss and positive airway pressure at night. Would avoid systemic steroids which can exacerbate this. 6. Patient has some basilar atelectatic changes. He has normal white blood cell count and to procalcitonin's which were negative. He is afebrile. His white count is normal. I do not think this represents infection and I think antibiotics can be discontinued. 7. Patient does have a borderline elevated ammonia level. Evaluation per the primary service as this could contribute to hypercarbia and altered mental status. We will continue to follow with you. Hopefully he responds favorably to noninvasive positive pressure ventilation History of Present Illness Attending Physician: Babatunde Thacker MD History of Present Illness Asked by hospitalist to assist in evaluation management this patient with hypercarbic respiratory failure and pulmonary hypertension. History is obtained from reviewed electronic medical record as well as discussion with the patient. The patient is a 71-year-old male with history of cognitive dysfunction, and probable obesity hypoventilation syndrome. He is not been on CPAP or BiPAP previously and has not had a sleep study although it has been recommended to him in the past. He has known chronic kidney disease bipolar disorder and prior subdural hematoma is. He was found to be lethargic and referred to the emergency room for by his primary care provider. His evaluation demonstrated acute on chronic respiratory acidosis and the patient was initiated on positive airway pressure via BiPAP. This improved his mental status. He is remained on BiPAP since. He had an echocardiogram showing elevated pulmonary arterial pressures which are new compared to an echocardiogram performed a few years ago. The patient is tolerating BiPAP reasonably well currently. Of note he did not tolerate it well during hospitalization in 2019 when he was admitted with Covid pneumonitis. He is awake alert and able to answer questions appropriately. He knows his name the date and that he is in the hospital. He is not having any chest pain or palpitations. He is not noted significant lower extremity edema. He was been seen by cardiology and initiated on diuretic therapy. Patient denies fevers chills or night sweats. Allergies Allergy/AdvReac Type Severity Reaction Status Date / Time No Known Allergies Allergy Verified 05/05/21 16:21 Home Medications Medication Instructions Recorded Confirmed Type levothyroxine 75 mcg tablet 75 mcg PO DAILY 06/24/18 05/05/21 History aripiprazole 400 mg intramuscular 400 mg IM DIRECTED 02/16/19 05/05/21 Histor y suspension,extended release (Abilifjyoti Maintena) divalproex 500 mg tablet,extended 1,000 mg PO QAM 02/16/19 05/05/21 History release 24 hr divalproex 500 mg tablet,extended 1,500 mg PO HS 02/16/19 05/05/21 History release 24 hr acetaminophen 500 mg tablet 1,000 mg PO DAILY 11/15/19 05/05/21 History cholecalciferol (vitamin D3) 50 50 mcg PO DAILY 11/15/19 05/05/21 History mcg (2,000 unit) tablet cyanocobalamin (vitamin B-12) 1,000 mcg PO DAILY 11/15/19 05/05/21 History 1,000 mcg tablet finasteride 5 mg tablet 5 mg PO QAM 11/15/19 05/05/21 History gabapentin 100 mg capsule 200 mg PO TID 11/15/19 05/05/21 History melatonin 5 mg tablet 5 mg PO HS 11/15/19 05/05/21 History menthol 4 % topical gel (Biofreeze 1 applic TOPICAL TID PRN 11/15/19 05/05/21 History (menthol)) mirtazapine 7.5 mg tablet 7.5 mg PO QPM 11/15/19 05/05/21 History multivitamin 1 tab PO DAILY 11/15/19 05/05/21 History tamsulosin 0.4 mg capsule 0.4 mg PO DAILY 11/15/19 05/05/21 History lisinopril 2.5 mg tablet 2.5 mg PO DAILY 10/31/20 05/05/21 History atorvastatin 40 mg tablet 40 mg PO DAILY 05/05/21 05/05/21 History camphor-methyl salicylate-menthol 1 patch TOPICAL DAILY PRN 05/05/21 05/05/21 History topical patch penicillin V potassium 500 mg 500 mg PO Q8 05/05/21 05/05/21 History tablet torsemide 20 mg tablet 20 mg PO BID 05/05/21 05/05/21 History Patient History Medical History Atrial septal aneurysm per [facility] records Bipolar disorder CKD (chronic kidney disease), stage III Cor pulmonale COVID-19 virus infection Dizziness History of COVID-19 ~11/2019 per records. History of DVT (deep vein thrombosis) per [facility] records History of electroconvulsive therapy History of Helicobacter pylori infection History of traumatic brain injury History of small right tentorial SDH 06/2018 while on Xarelto for a provoked DVT. Repeat CT scan in 07/2018 revealed resolution. Hx of pulmonary hypertension per [facility] records Hyperlipidemia Hypertension Hypothyroidism Hypoxia No pertinent family history Pedal edema Pneumonia hx of covid pneumonia per records Seizure hx of seizure disorder per [facility] records Severe pulmonary hypertension Vitiligo Surgical History History of colonoscopy with polypectomy History of esophagogastroduodenoscopy (EGD) Positive H. pylori Status post cholecystectomy Family History Mother Diabetes Brother Heart disease Social History Smoking Status: Never smoker Second Hand Exposure: No; Do You Dip or Chew Tobacco: No; Tobacco Cessation Education Requested by Patient: No Hx Alcohol Use: No Hx Substance Use: No Preferred Language: [place] Island[place] Communication Ability: Effective Visual Impairment: No Limitations Hearing Ability: Normal Group Work Program Director Required: No Beliefs That Will Affect Care: None marital status: Unknown Current Living Situation: Personal Care Facility Current Living Situation Comment: [facility] current occupational status: retired current occupation: [employer] for 35.5 yrs Other Information That Helps Us Care for You: No Feels Safe at Home: Yes Safety Concerns: Feels Safe At This Time Assistive Devices: BiPap Assistive Devices Comment: Oxygen concentrator with patient Review of Systems Review of Systems: Please refer to admission H&P. No additions or deletions Physical Exam Constitutional: WD/WN, vitals as above Neck: trachea midline, no thyromegaly Respiratory: normal respiratory effort, lungs clear to auscultation Cardiovascular: RRR, no murmur, no edema Gastrointestinal (Abdomen): normal bowel sounds, soft, nontender, no hepatosplenomegaly Musculoskeletal: Extremities: extremities normal to inspection Skin: no rashes, warm and dry Neurologic: Nonfocal exam Lymphatic: no cervical lymphadenopathy Results & Data Results & Data ([facility]) Vital Signs (Past 12 Hours) Vital Signs Temp Pulse Pulse Resp BP Pulse Ox 05/06/21 11:29 36.5 C 94 H 20 111/76 96 05/06/21 11:15 95 H 22 94 05/06/21 07:20 36.6 C 96 H 18 123/77 97 05/06/21 07:19 95 H 20 94 05/06/21 03:53 36.8 C 91 H 20 110/66 95 05/06/21 01:15 89 Laboratory Results 05/06/21 01:38 05/06/21 01:38 05/05/21 05/05/21 14:18 17:49 ABG pH Cancelled ABG pCO2 Cancelled ABG pO2 Cancelled ABG HCO3 Cancelled ABG O2 Saturation Cancelled ABG Base Excess Cancelled VBG pH 7.26 L VBG pCO2 81 H VBG pO2 34 VBG HCO3 36 VBG O2 Saturation < 60.0 VBG Base Excess 4.8 Diagnostic Findings Spirometry performed September 2017 showed an FEV1 of 2.57 L or 90% predicted with an FVC of 3.48 L or 97% predicted and a ratio of 74 which was normal. No change after administration of bronchodilators. Flow volume loops were normal. Echocardiogram performed today demonstrated concentric LVH with an EF greater than 70. E to E prime ratio 14 consistent with diastolic dysfunction. Bowing of the ventricular septum was noted. Right ventricle was severely dilated with moderate to severe reduction in right ventricular systolic function. No significant valvular heart disease. Estimated PA systolic pressure of 50-60. CT angiogram performed 05/05/2021 demonstrated no evidence of PE. Trivial bilateral pleural effusions are noted. Significant dynamic airway collapse is noted with almost complete obliteration of the left mainstem bronchus and right mainstem bronchus. Significant collapse of the trachea is also noted. There are some patchy bilateral atelectatic changes in the lower lobes. PG Care Time/CCT Total # of Minutes Spent Total Time Spent with Patient: Total time spent is greater than 50% in coordination of care (as documented) at patient's floor/unit and/or counseling patient: Coding Level of Care Code 47729 Initial Inpt Care Lvl 3 Diagnoses Acquired tracheomalacia J39.8 Hypercapnic respiratory failure J96.92 Diastolic heart failure I50.30 Pulmonary hypertension I27.20
[2021-05-06 13:03] LABS: HCO3 VBG 39 mmol/L; PCO2 VBG 85 mmHg (38-50); PO2 VBG 33 mmHg; pH VBG 7.28 (7.36-7.41)
[2021-05-06 13:04] LABS: Oxygen Saturation VBG < 60.0 %
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
[2021-05-06 14:53] LABS: BUN Creatinine Ratio 19.1 (10-20); Calcium 8.8 mg/dl (8.5-10.1); Creatinine Clr Calc Pharmacy 61.4 ml/min; Est GFR (African American) 63.5 ml/min; Est GFR (Non-African American) 54.8 ml/min
[2021-05-06] MEDS ORDERED: FUROSEMIDE 40 MG/4 ML VIAL IV ONE (15:47)
[2021-05-06 17:47] LABS: Base Excess VBG 9.7 mEq/L; Oxygen Saturation VBG 65.5 %; pH VBG 7.34 (7.36-7.41)
[2021-05-06] MEDS: VALPROATE SOD 1,500 MG in DEXTROSE 5% 100 ML IV SCH (21:56)
[2021-05-06] MEDS: MIRTAZAPINE TAB 15 MG TAB PO SCH (21:56)
[2021-05-06] MEDS ORDERED: HALOPERIDOL LACTATE 5 MG/ML 1 ML VIAL IM STA (23:04)
[2021-05-06] MEDS ORDERED: HALOPERIDOL LACTATE 5 MG/ML 1 ML VIAL ONE (23:11)
[2021-05-07] MEDS: LEVOTHYROXINE SODIUM 75 MCG TABLET PO SCH (05:21)
[2021-05-07] MEDS: VALPROATE SOD 1,000 MG in DEXTROSE 5% 50 ML IV SCH (05:21)
[2021-05-07 07:43] LABS: Basophils # (auto) 0.01 K/uL (0-0.2); Basophils % (auto) 0.2 %; Eosinophils # (auto) 0.07 K/uL (0-0.5); Eosinophils % (auto) 1.3 %; Hematocrit (blood only) 51.8 % (42-52); Hemoglobin 16.7 g/dL (14.0-18.0); Immature Granulocytes # (auto) 0.01 K/uL (0.00-0.02); Immature Granulocytes % (auto) 0.2 %; Lymphocytes # (auto) 0.92 K/uL (1.2-3.4); Lymphocytes % (auto) 16.5 %; Mean Corpuscular Hemoglobin 32.7 pg (25-34); Mean Corpuscular Hgb Conc 32.2 g/dL (32-36); Mean Corpuscular Volume 101.6 fL (80-100); Mean Platelet Volume 9.9 fL (7.4-10.4); Monocytes # (auto) 0.73 K/uL (0.11-0.59); Monocytes % (auto) 13.1 %; Neutrophils # (auto) 3.82 K/uL (1.4-6.5); Neutrophils % (auto) 68.7 %; Platelet Count 188 K/uL (130-400); RDW Coefficient of Variation 14.8 % (11.5-14.5); RDW Standard Deviation 55.5 fL (36.4-46.3); White Blood Count 5.56 K/uL (4.8-10.8)
[2021-05-07 08:14] LABS: Albumin Globulin Ratio 1.4 (0.9-2); Albumin Level 3.7 gm/dl (3.4-5.0); BUN Creatinine Ratio 20.1 (10-20); Bilirubin,Total 0.7 mg/dl (0.2-1.0); Calcium 8.9 mg/dl (8.5-10.1); Creatinine Clr Calc Pharmacy 60.9 ml/min; Est GFR (African American) 61.8 ml/min; Est GFR (Non-African American) 53.3 ml/min; Globulin 2.6 gm/dl (2.5-4.0); Magnesium 1.7 mg/dl (1.7-2.4); Total Protein 6.3 gm/dl (6.0-8.3)
[2021-05-07 08:55] LABS: Base Excess VBG 9.7 mEq/L; Oxygen Saturation VBG 83.2 %; pH VBG 7.35 (7.36-7.41)
[2021-05-07] MEDS ORDERED: FUROSEMIDE 40 MG/4 ML VIAL IV SCH (09:15)
[2021-05-07] MEDS: CYANOCOBALAMIN (B-12) 500 MCG TABLET PO SCH (09:17)
[2021-05-07] MEDS: ATORVASTATIN 40 MG TAB PO SCH (09:17)
[2021-05-07] MEDS: CHOLECALCIFEROL 1,000 UNITS 25 MCG TAB PO SCH (09:17)
[2021-05-07] MEDS: TAMSULOSIN HCL 0.4 MG CAP PO SCH (09:17)
[2021-05-07] MEDS: FINASTERIDE 5 MG TAB PO SCH (09:18)
[2021-05-07] MEDS: GABAPENTIN 100 MG CAP PO SCH ×3 (09:18→20:29)
--- NOTE | 2021-05-07 14:08 | Pulmonology Progress Note ---
Date of Service May 07, 2021 Assessment & Plan (1) Acquired tracheomalacia: (2) Hypercapnic respiratory failure: (3) Diastolic heart failure: (4) Pulmonary hypertension: Plan: Attending: Dr. Kumar Impression: 71-year-old male admitted with lethargy due to hypercarbic respiratory failure improving with positive airway pressure. Is also found to have significant pulmonary hypertension. I suspect the patient has WHO class II and III pulmonary hypertension secondary to obesity hypoventilation syndrome and hypercarbia with likely chronic nocturnal hypoxemia. It is difficult to assess his [place] [employer] class Recommendations: 1. Obesity hypoventilation syndrome: Patient appears to have obesity hypoventilation with a BMI of 40.6 kg/m. Previous PFTs done in the past did not show any obstructive disease. Patient does have nocturnal hypoxia and is chronically on supplemental oxygen via nasal cannula HS. VBG shows persistent hypercapnia with improvement with BiPAP. Will do bedside spirometry and obtain a repeat ABG this afternoon. We will also repeat ABG in the morning with a.m. labs to look for improvement or worsening of his PCO2 while sleeping. DME provider is [facility]. They have been contacted and are aware that one of the discharge goals will be to provide BiPAP with current settings at the hospital. Polysomnography is recommended on discharge. Patient is agreeable to this. It will need to be coordinated with Mino Pizano on discharge 2. Pulmonary hypertension: Most likely secondary to obesity hypoventilation syndrome. Patient will need continued supplemental oxygen and BiPAP or AVAPS on discharge. Patient does not have COPD based on previous PFTs but these should be repeated on discharge as an outpatient. We will get bedside spirometry today. Patient will also need outpatient follow-up for consideration of right heart catheterization once patient is stable. 3. Agree that right heart catheterization could be performed including assessment of LVEDP. For now I would proceed with continue diuresis and treatment of the patient's hypercarbia and untreated sleep disordered breathing and potentially follow-up his echocardiogram in the future. If it remains problematic, could consider right heart catheterization at that point with oxygen and vasodilator challenges. Ideally, this should be performed at a pulmonary hypertension center of excellence. I did discuss this with Dr. Jurado from cardiology this morning. At this point they agree that this is not a critical test to be performed right now but may be needed as an outpatient. 4. Tracheobronchial malacia: Patient does appear to have a EDAC (excessive dynamic airway collapse) as seen on CT scan. Suspect that this is a major contributor to his hypercarbia. Treatment is weight loss and positive airway pressure at night. Would avoid systemic steroids which can exacerbate this. 5. Patient has some basilar atelectatic changes. He has normal white blood cell count and to procalcitonin's which were negative. He is afebrile. His white count is normal. I do not think this represents infection and I think antibiotics can be discontinued. Will defer this to the hospitalist team. 6. Altered mental status: Ammonia level was 78 on 05/05/2021. Evaluation will be deferred to the primary service. This could contribute to hypercarbia and altered mental status. We will also continue to follow PCO2. Further work-up per hospitalist team. Thank you for allowing us to dissipate in the care of this patient. We will continue to follow along with you. [facility] has been contacted as well as case management to coordinate discharge on BiPAP. Admission and Anticipated Discharge Date Admission Date: May 05, 2021 Subjective Attending: Dr. Kumar Patient seen and examined at bed 240. He has been compliant with his BiPAP therapy. Currently he is on Oxymask for his 2-hour break. At this time his CO2 is slowly correcting with BiPAP. He is tolerating the mask. He reports that he feels better with the BiPAP as well as with supplemental oxygen. Patient states that he lives in a group setting and does have oxygen at home and that his DME supplier is [facility] He resides at [facility]. Patient denies any chest pain or tightness. He is not aware of any fever or chills. He does have recollection of events from the morning but cannot remember anything from yesterday. This is most likely due to his hypercapnia. He has no acute complaints. Review of Systems Review of Systems: A total of 10 systems was reviewed and is negative other than as listed above. Physical Exam Physical Exam: GENERAL : No acute distress. Pleasant EYES: No icterus, gaze conjugate NOSE: No evidence of epistaxis MOUTH: No lesions or candidiasis NECK: Supple LUNGS: Patient does sound tight. Good inspirational effort. No appreciation of bronchospasm. HEART: Regular, rate controlled ABDOMEN: Soft, NT, ND, BS Present EXTREMITIES: No LE edema, pedal pulses intact NEURO: A&OX3 Results & Data Results & Data ([facility]) Vital Signs (Past 12 Hours) Vital Signs Temp Pulse Pulse Resp BP Pulse Ox 05/07/21 13:43 102 H 19 92 05/07/21 11:58 36.7 C 90 20 119/80 92 05/07/21 08:03 36.5 C 76 18 132/84 95 05/07/21 03:43 36.5 C 75 16 130/73 97 05/07/21 03:24 82 24 93 Critical Care Results & Data Vital Signs (Past 12 Hours) Vital Signs Temp Pulse Pulse Resp BP Pulse Ox 05/07/21 13:43 102 H 19 92 05/07/21 11:58 36.7 C 90 20 119/80 92 05/07/21 08:03 36.5 C 76 18 132/84 95 05/07/21 03:43 36.5 C 75 16 130/73 97 05/07/21 03:24 82 24 93 Lab & Micro Results (Past 24 Hours) RBC 5.10 M/uL (4.7-6.1) 05/07/21 WBC 5.56 K/uL (4.8-10.8) 05/07/21 Hgb 16.7 g/dL (14.0-18.0) 05/07/21 Hct 51.8 % (42-52) 05/07/21 MCV 101.6 fL (80-100) H 05/07/21 MCH 32.7 pg (25-34) 05/07/21 MCHC 32.2 g/dL (32-36) 05/07/21 RDW Standard Deviation 55.5 fL (36.4-46.3) H 05/07/21 RDW Coefficient of Variation 14.8 % (11.5-14.5) H 05/07/21 Plt Count 188 K/uL (130-400) 05/07/21 MPV 9.9 fL (7.4-10.4) 05/07/21 Neutrophils (%) (Auto) 68.7 % 05/07/21 Lymphocytes (%) (Auto) 16.5 % 05/07/21 Monocytes # (Auto) 0.73 K/uL (0.11-0.59) H 05/07/21 Eosinophils # (Auto) 0.07 K/uL (0-0.5) 05/07/21 Immature Granulocyte % (Auto) 0.2 % 05/07/21 Neutrophils # (Auto) 3.82 K/uL (1.4-6.5) 05/07/21 Lymphocytes # (Auto) 0.92 K/uL (1.2-3.4) L 05/07/21 Monocytes # (Auto) 0.73 K/uL (0.11-0.59) H 05/07/21 Eosinophils # (Auto) 0.07 K/uL (0-0.5) 05/07/21 Basophils # (Auto) 0.01 K/uL (0-0.2) 05/07/21 Immature Granulocyte # (Auto) 0.01 K/uL (0.00-0.02) 05/07/21 Na 148 mmol/L (136-145) H 05/07/21 K 4.0 mmol/L (3.5-5.1) 05/07/21 Cl 102 mmol/L (98-107) 05/07/21 CO2 38 mmol/L (21-32) H 05/07/21 Anion Gap 8 (3-11) 05/07/21 BUN 27 mg/dl (6-23) H 05/07/21 Creatinine 1.34 mg/dl (0.6-1.4) 05/07/21 Estimated GFR ( Amer) 61.8 ml/min 05/07/21 Estimated GFR (Non-Af Amer) 53.3 ml/min 05/07/21 BUN/Creatinine Ratio 20.1 (10-20) H 05/07/21 Glu 73 mg/dl (70-99(Fasting)) 05/07/21 Ca 8.9 mg/dl (8.5-10.1) 05/07/21 Total Bilirubin 0.7 mg/dl (0.2-1.0) 05/07/21 AST 24 U/L (13-39) 05/07/21 ALT 23 U/L (7-52) 05/07/21 Alkaline Phosphatase 81 U/L (34-104) 05/07/21 TP 6.3 gm/dl (6.0-8.3) 05/07/21 Albumin 3.7 gm/dl (3.4-5.0) 05/07/21 Globulin 2.6 gm/dl (2.5-4.0) 05/07/21 Albumin/Globulin Ratio 1.4 (0.9-2) 05/07/21 Mg 1.7 mg/dl (1.7-2.4) 05/07/21 07:04 05/07/21 Calcium Level 8.9 mg/dl (8.5-10.1) 05/07/21 07:04 05/07/21 Venous Blood pH 7.35 (7.36-7.41) L 05/07/21 08:34 05/07/21 Venous Blood Partial Pressure CO2 72 mmHg (38-50) H 05/07/21 08:34 05/07/21 Venous Blood Partial Pressure O2 51 mmHg 05/07/21 08:34 05/07/21 Venous Blood HCO3 39 mmol/L 05/07/21 08:34 05/07/21 Venous Blood Base Excess 9.7 mEq/L 05/07/21 08:34 05/07/21 Venous Blood Oxygen Saturation 83.2 % 05/07/21 08:34 05/07/21 Blood Gas Barometric Pressure 721.2 mm/Hg 05/07/21 08:34 05/07/21 Blood Gas Barometric Pressure 721.2 mm/Hg 05/07/21 08:34 05/07/21 Microbiology 05/05/21 15:49 Aerobic Blood Culture - Preliminary Blood No growth in Aerobic bottle after 24 hours. Anaerobic Blood Culture - Preliminary No growth in Anaerobic bottle after 24 hours. 05/05/21 Unknown Aerobic Blood Culture - Preliminary Blood No growth in Aerobic bottle after 24 hours. Anaerobic Blood Culture - Preliminary No growth in Anaerobic bottle after 24 hours. I & O Totals 24 Hours 05/06/21 05/07/21 05/08/21 06:59 06:59 06:59 Intake Total 1900 / 1900 1185 / 1185 380 / 380 Output Total 3600 / 3600 2350 / 2350 1000 / 1000 Balance -1700 / -1700 -1165 / -1165 -620 / -620 Cumulative 05/05/21 13:39 thru 05/07/21 13:36 Intake Total 3465 Output Total 6950 Balance -3485 RT Ventilator Mngmt (Last Documented) Ventilator Ordered Settings Respiratory Rate 19 05/07/21 13:43 Fraction of Inspired Oxygen 50 05/07/21 13:43 Ventilator - PT Measurements Respiratory Rate 19 PG Care Time/CCT Total # of Minutes Spent Total Time Spent with Patient: Total time spent is greater than 50% in coordination of care (as documented) at patient's floor/unit and/or counseling patient:45 minutes Coding Level of Care Code 41509 Subseq Hosp Care Lvl 3 Diagnoses Acquired tracheomalacia J39.8 Hypercapnic respiratory failure J96.92 Diastolic heart failure I50.30 Pulmonary hypertension I27.20 Time Spent (min) 45
--- NOTE | 2021-05-07 14:14 | Cardiology Progress Note ---
Date of Service May 07, 2021 Assessment & Plan (1) Acute on chronic respiratory failure with hypoxia and hypercapnia: (2) Severe pulmonary hypertension: (3) Cor pulmonale: (4) Elevated troponin I level: (5) Pneumonia: Plan: Patient admitted for acute on chronic respiratory failure with hypoxia and hypercapnia. He has severe underlying pulmonary hypertension with severely dilated RV with similar findings on current echo this admission as to November 2020 echo. He was to have outpatient right heart cath but this was not completed due to insurance reasons. He unfortunately has not had close f/u with pulmonology team as well. Chest CTA was negative for pulmonary embolus. Continue BIPAP Pulm consult appreciated. Patient with abnormal EKG, T wave inversions in anterior leads, but denies chest pain. Echo with normal LV systolic function. Mild troponin elevation consistent with myocardial strain with hypoxia. Creatinine improved with diuresis over the last 24 hours. Patient has been NPO since admission. At this time, his mentation is better. Acceptable to removal BIPAP to eat. Diet ordered. Urine is more concentrated this afternoon per nursing staff. will hold PM dose of furosemide. Monitor renal function in the morning. Once respiratory status improves, consider right/left heart cath for further evaluation of his cardiopulmonary status at tertiary [facility]pulm hypertension clinic. case discussed with Dr. Jurado. Will follow. Admission and Anticipated Discharge Date Admission Date: May 05, 2021 Supervising Physician Co-Signing Physician Notes 71-year-old patient admitted with acute hypoxic and hypercapnic respiratory failure. More alert today. Answers question appropriately. Denies chest discomfort or heaviness. Reports shortness of breath at baseline. Serum sodium trending upward. He has been n.p.o. since admission. Fluid balance -1.5 L PE:VSS. GEN: Acutely ill, no acute distress. Heart: Regular, borderline tachycardic. No murmur appreciated. Lungs: Scattered rhonchi with expiratory wheezing bilaterally. Abd: Soft, nontender, normal bowel sounds. Extremities: No edema. A/P: Agree with above PA-C history, physical exam, assessment and plan. 71-year-old with acute on chronic respiratory failure with hypoxia and hypercapnia. Hold the evening dose of furosemide due to hypernatremia. Repeat BMP in a.m. and reassess volume status tomorrow. Appreciate pulmonary medicine consultation. In regard to patient's pulmonary hypertension, he will require a cardiac catheterization when he has recovered from pneumonia and his respiratory status has stabilized. Mildly elevated troponin secondary to hypoxia in the setting of pneumonia/hypoxic respiratory failure, and acute on chronic renal insufficiency. T wave inversions on ECG noted on prior tracings. No regional wall motion abnormalities on 2D transthoracic echocardiogram to suggest plaque rupture event. Continue supportive care. Thank you for allow me to participate in the care of your patient Subjective Patient resting in bed. BIPAP in place. Notes sore nose. Remains NPO for unknown reasons per nursing staff. NO PO intake in 2 days. urine more concentrated today. He reports SOB improving. Mildly confused at times per nursing staff. no chest pain. Review of Systems Review of Systems: All systems reviewed & are unremarkable except as noted in HPI & below Physical Exam Constitutional: WD/WN, vitals as above + morbidly obese and comfortable; no acute distress Neck: + thick neck Cardiovascular: Rate/Rhythm: regular rate and regular rhythm Heart Sounds: normal S1 and normal S2; no murmur Vessels: + JVD Extremities: + edema (Trace to 1+ b/l ) Gastrointestinal (Abdomen): normal bowel sounds, soft, nontender, no hepatosplenomegaly Neurologic: PERRL, EOMI, accommodation nl, no face palsy, no dysarthria Results & Data ([facility]) Vital Signs (Past 12 Hours) Vital Signs Temp Pulse Pulse Resp BP Pulse Ox 05/07/21 13:43 102 H 19 92 05/07/21 11:58 36.7 C 90 20 119/80 92 05/07/21 08:03 36.5 C 76 18 132/84 95 05/07/21 03:43 36.5 C 75 16 130/73 97 05/07/21 03:24 82 24 93 Laboratory Results 05/07/21 05/07/21 05/07/21 Range/Units 08:34 07:59 07:04 WBC (4.8-10.8) K/uL RBC (4.7-6.1) M/uL Hgb (14.0-18.0) g/dL Hct (42-52) % MCV (80-100) fL MCH (25-34) pg MCHC (32-36) g/dL RDW Std Deviation (36.4-46.3) fL RDW Coeff of Tai (11.5-14.5) % Plt Count (130-400) K/uL MPV (7.4-10.4) fL Immature Gran % (Auto) % Neut % (Auto) % Lymph % (Auto) % Nicollet % (Auto) % Eos % (Auto) % Baso % (Auto) % Neut # (Auto) (1.4-6.5) K/uL Lymph # (Auto) (1.2-3.4) K/uL Nicollet # (Auto) (0.11-0.59) K/uL Eos # (Auto) (0-0.5) K/uL Baso # (Auto) (0-0.2) K/uL Immature Gran # (Auto) (0.00-0.02) K/uL VBG pH 7.35 L Cancelled VBG pCO2 72 H Cancelled VBG pO2 51 Cancelled VBG HCO3 39 Cancelled VBG O2 Saturation 83.2 Cancelled VBG Base Excess 9.7 Cancelled Barometric Pressure 721.2 Cancelled Sodium 148 H (136-145) mmol/L Potassium 4.0 (3.5-5.1) mmol/L Chloride 102 (98-107) mmol/L Carbon Dioxide 38 H (21-32) mmol/L Anion Gap 8 (3-11) BUN 27 H (6-23) mg/dl Creatinine 1.34 (0.6-1.4) mg/dl Est Cr Clr Drug Dosing 60.9 ml/min Est GFR ( Amer) 61.8 ml/min Est GFR (Non-Af Amer) 53.3 ml/min BUN/Creatinine Ratio 20.1 H (10-20) Glucose 73 (70-99(Fasting)) mg/dl Calcium 8.9 (8.5-10.1) mg/dl Magnesium 1.7 (1.7-2.4) mg/dl Total Bilirubin 0.7 (0.2-1.0) mg/dl AST 24 (13-39) U/L ALT 23 (7-52) U/L Alkaline Phosphatase 81 (34-104) U/L Total Protein 6.3 (6.0-8.3) gm/dl Albumin 3.7 (3.4-5.0) gm/dl Globulin 2.6 (2.5-4.0) gm/dl Albumin/Globulin Ratio 1.4 (0.9-2) Hepatitis C Ab (EIA) (NON-REACTIVE) Hep C Ab Signal/Cutoff (<1.00) 05/07/21 05/06/21 05/06/21 Range/Units 07:04 17:32 17:08 WBC 5.56 (4.8-10.8) K/uL RBC 5.10 (4.7-6.1) M/uL Hgb 16.7 (14.0-18.0) g/dL Hct 51.8 (42-52) % MCV 101.6 H (80-100) fL MCH 32.7 (25-34) pg MCHC 32.2 (32-36) g/dL RDW Std Deviation 55.5 H (36.4-46.3) fL RDW Coeff of Tai 14.8 H (11.5-14.5) % Plt Count 188 (130-400) K/uL MPV 9.9 (7.4-10.4) fL Immature Gran % (Auto) 0.2 % Neut % (Auto) 68.7 % Lymph % (Auto) 16.5 % Nicollet % (Auto) 13.1 % Eos % (Auto) 1.3 % Baso % (Auto) 0.2 % Neut # (Auto) 3.82 (1.4-6.5) K/uL Lymph # (Auto) 0.92 L (1.2-3.4) K/uL Nicollet # (Auto) 0.73 H (0.11-0.59) K/uL Eos # (Auto) 0.07 (0-0.5) K/uL Baso # (Auto) 0.01 (0-0.2) K/uL Immature Gran # (Auto) 0.01 (0.00-0.02) K/uL VBG pH 7.34 L Cancelled VBG pCO2 76 H Cancelled VBG pO2 36 Cancelled VBG HCO3 40 Cancelled VBG O2 Saturation 65.5 Cancelled VBG Base Excess 9.7 Cancelled Barometric Pressure 729.0 Cancelled Sodium (136-145) mmol/L Potassium (3.5-5.1) mmol/L Chloride (98-107) mmol/L Carbon Dioxide (21-32) mmol/L Anion Gap (3-11) BUN (6-23) mg/dl Creatinine (0.6-1.4) mg/dl Est Cr Clr Drug Dosing ml/min Est GFR ( Amer) ml/min Est GFR (Non-Af Amer) ml/min BUN/Creatinine Ratio (10-20) Glucose (70-99(Fasting)) mg/dl Calcium (8.5-10.1) mg/dl Magnesium (1.7-2.4) mg/dl Total Bilirubin (0.2-1.0) mg/dl AST (13-39) U/L ALT (7-52) U/L Alkaline Phosphatase (34-104) U/L Total Protein (6.0-8.3) gm/dl Albumin (3.4-5.0) gm/dl Globulin (2.5-4.0) gm/dl Albumin/Globulin Ratio (0.9-2) Hepatitis C Ab (EIA) (NON-REACTIVE) Hep C Ab Signal/Cutoff (<1.00) 05/06/21 05/05/21 Range/Units 14:18 14:18 WBC (4.8-10.8) K/uL RBC (4.7-6.1) M/uL Hgb (14.0-18.0) g/dL Hct (42-52) % MCV (80-100) fL MCH (25-34) pg MCHC (32-36) g/dL RDW Std Deviation (36.4-46.3) fL RDW Coeff of Tai (11.5-14.5) % Plt Count (130-400) K/uL MPV (7.4-10.4) fL Immature Gran % (Auto) % Neut % (Auto) % Lymph % (Auto) % Nicollet % (Auto) % Eos % (Auto) % Baso % (Auto) % Neut # (Auto) (1.4-6.5) K/uL Lymph # (Auto) (1.2-3.4) K/uL Nicollet # (Auto) (0.11-0.59) K/uL Eos # (Auto) (0-0.5) K/uL Baso # (Auto) (0-0.2) K/uL Immature Gran # (Auto) (0.00-0.02) K/uL VBG pH VBG pCO2 VBG pO2 VBG HCO3 VBG O2 Saturation VBG Base Excess Barometric Pressure Sodium 147 H (136-145) mmol/L Potassium 5.0 (3.5-5.1) mmol/L Chloride 103 (98-107) mmol/L Carbon Dioxide 38 H (21-32) mmol/L Anion Gap 6 (3-11) BUN 25 H (6-23) mg/dl Creatinine 1.31 D (0.6-1.4) mg/dl Est Cr Clr Drug Dosing 61.4 ml/min Est GFR ( Amer) 63.5 ml/min Est GFR (Non-Af Amer) 54.8 ml/min BUN/Creatinine Ratio 19.1 (10-20) Glucose 84 (70-99(Fasting)) mg/dl Calcium 8.8 (8.5-10.1) mg/dl Magnesium (1.7-2.4) mg/dl Total Bilirubin (0.2-1.0) mg/dl AST (13-39) U/L ALT (7-52) U/L Alkaline Phosphatase (34-104) U/L Total Protein (6.0-8.3) gm/dl Albumin (3.4-5.0) gm/dl Globulin (2.5-4.0) gm/dl Albumin/Globulin Ratio (0.9-2) Hepatitis C Ab (EIA) NON-REACTIVE (NON-REACTIVE) Hep C Ab Signal/Cutoff 0.02 (<1.00) Diagnostic Findings Telemetry reviewed - NSR 80-90 bpm, no arrhythmias Medications Administered Current Inpatient Medications Acetaminophen (Acetaminophen 325 Mg Tab) 650 mg PO Q4H PRN PRN Reason: Pain or Fever Stop: 06/04/21 19:40 Last Admin: 05/07/21 09:25 Dose: 650 mg Documented by: Atorvastatin Calcium (Atorvastatin 40 Mg Tab) 40 mg PO DAILY IVANA Stop: 06/05/21 08:59 Last Admin: 05/07/21 09:17 Dose: 40 mg Documented by: Cyanocobalamin (Cyanocobalamin (B-12) 500 Mcg Tablet) 1,000 mcg PO DAILY IVANA Stop: 06/05/21 08:59 Last Admin: 05/07/21 09:17 Dose: 1,000 mcg Documented by: Divalproex Sodium (Divalproex Extended Release 500 Mg Tab) 1,000 mg PO QAM IVANA Stop: 06/05/21 08:59 Last Admin: 05/06/21 08:38 Dose: 1,000 mg Documented by: Divalproex Sodium (Divalproex Extended Release 500 Mg Tab) 1,500 mg PO HS IVANA Stop: 06/04/21 20:59 Last Admin: 05/05/21 20:49 Dose: 1,500 mg Documented by: Finasteride (Finasteride 5 Mg Tab) 5 mg PO QAM IVANA Stop: 06/05/21 08:59 Last Admin: 05/07/21 09:18 Dose: 5 mg Documented by: Furosemide (Furosemide 40 Mg/4 Ml Vial) 40 mg IV [id number] IVANA Stop: 06/06/21 09:14 Last Admin: 05/07/21 09:52 Dose: 40 mg Documented by: Gabapentin (Gabapentin 100 Mg Cap) 200 mg PO TID IVANA Stop: 06/04/21 20:59 Last Admin: 05/07/21 09:18 Dose: 200 mg Documented by: Valproic Acid 1,500 mg/ (Dextrose) 115 mls @ 115 mls/hr IV HS IVANA Stop: 06/05/21 20:59 Last Infusion: 05/06/21 22:56 Dose: Infused Documented by: Valproic Acid 1,000 mg/ (Dextrose) 60 mls @ 55 mls/hr IV DAILYBB IVANA Stop: 06/06/21 06:29 Last Infusion: 05/07/21 07:21 Dose: Infused Documented by: Levothyroxine Sodium (Levothyroxine Sodium 75 Mcg Tablet) 75 mcg PO DAILYBB IVANA Stop: 06/05/21 06:29 Last Admin: 05/07/21 05:21 Dose: 75 mcg Documented by: Mirtazapine (Mirtazapine Tab 15 Mg Tab) 7.5 mg PO QPM IVANA Stop: 06/04/21 20:59 Last Admin: 05/06/21 21:56 Dose: 7.5 mg Documented by: Tamsulosin HCl (Tamsulosin Hcl 0.4 Mg Cap) 0.4 mg PO DAILY IVANA Stop: 06/05/21 08:59 Last Admin: 05/07/21 09:17 Dose: 0.4 mg Documented by: Vitamin D (Cholecalciferol 1,000 Units 25 Mcg Tab) 2,000 units PO DAILY IVANA Stop: 06/05/21 08:59 Last Admin: 05/07/21 09:17 Dose: 2,000 units Documented by:
[2021-05-07 15:05] LABS: Base Excess ABG 10.6 mEq/L (-9-1.8); HCO3 ABG 38 mmol/L (19-24); PCO2 ABG 61 mmHg (35-46); PO2 ABG 82 mmHg (80-95); pH ABG 7.42 (7.35-7.45)
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
[2021-05-07 15:16] LABS: Allen Test Pos (Pos)
[2021-05-07] MEDS: MIRTAZAPINE TAB 15 MG TAB PO SCH (20:29)
[2021-05-07] MEDS: VALPROATE SOD 1,500 MG in DEXTROSE 5% 100 ML IV SCH (20:29)
--- NOTE | 2021-05-07 21:53 | Electrocardiogram Report ---
Test Reason : Blood Pressure : / mmHG Vent. Rate : 091 BPM Atrial Rate : 091 BPM P-R Int : 128 ms QRS Dur : 098 ms QT Int : 364 ms P-R-T Axes : 048 187 016 degrees QTc Int : 447 ms Normal sinus rhythm Right superior axis deviation Incomplete right bundle branch block Right ventricular hypertrophy Abnormal ECG When compared with ECG of 06-MAY-2021 08:04, No significant change was found Confirmed by Martinez Guerin ([id number]) on 05/07/2021 9:52:52 PM Referred By: REFERRED SELF Confirmed By:Martinez Guerin
[2021-05-07] MEDS ORDERED: LORazepam 2 MG/1 ML VIAL IV STA (23:42)
[2021-05-08] MEDS: VALPROATE SOD 1,000 MG in DEXTROSE 5% 50 ML IV SCH (05:36)
[2021-05-08] MEDS: LEVOTHYROXINE SODIUM 75 MCG TABLET PO SCH (05:36)
[2021-05-08 07:50] LABS: Basophils # (auto) 0.01 K/uL (0-0.2); Basophils % (auto) 0.2 %; Eosinophils # (auto) 0.13 K/uL (0-0.5); Eosinophils % (auto) 2.4 %; Hematocrit (blood only) 48.4 % (42-52); Hemoglobin 15.8 g/dL (14.0-18.0); Immature Granulocytes # (auto) 0.01 K/uL (0.00-0.02); Immature Granulocytes % (auto) 0.2 %; Lymphocytes # (auto) 0.97 K/uL (1.2-3.4); Lymphocytes % (auto) 17.6 %; Mean Corpuscular Hemoglobin 32.4 pg (25-34); Mean Corpuscular Hgb Conc 32.6 g/dL (32-36); Mean Corpuscular Volume 99.4 fL (80-100); Mean Platelet Volume 9.8 fL (7.4-10.4); Monocytes # (auto) 0.65 K/uL (0.11-0.59); Monocytes % (auto) 11.8 %; Neutrophils # (auto) 3.75 K/uL (1.4-6.5); Neutrophils % (auto) 67.8 %; Platelet Count 177 K/uL (130-400); RDW Coefficient of Variation 14.4 % (11.5-14.5); RDW Standard Deviation 52.2 fL (36.4-46.3); Red Blood Count 4.87 M/uL (4.7-6.1); White Blood Count 5.52 K/uL (4.8-10.8)
[2021-05-08 07:51] LABS: Base Excess ABG 9.7 mEq/L (-9-1.8); HCO3 ABG 38 mmol/L (19-24); Oxygen Saturation ABG 89.3 % (90-95); PCO2 ABG 67 mmHg (35-46); PO2 ABG 59 mmHg (80-95); pH ABG 7.37 (7.35-7.45)
[2021-05-08 07:52] LABS: Allen Test Pos (Pos)
[2021-05-08] MEDS: CHOLECALCIFEROL 1,000 UNITS 25 MCG TAB PO SCH (08:17)
[2021-05-08] MEDS: FINASTERIDE 5 MG TAB PO SCH (08:17)
[2021-05-08] MEDS: ATORVASTATIN 40 MG TAB PO SCH (08:17)
[2021-05-08] MEDS: CYANOCOBALAMIN (B-12) 500 MCG TABLET PO SCH (08:17)
[2021-05-08] MEDS: GABAPENTIN 100 MG CAP PO SCH ×3 (08:18→21:02)
[2021-05-08 08:37] LABS: BUN Creatinine Ratio 24.8 (10-20); Calcium 8.8 mg/dl (8.5-10.1); Creatinine Clr Calc Pharmacy 71.6 ml/min; Est GFR (African American) 75.9 ml/min; Est GFR (Non-African American) 65.5 ml/min; Potassium 3.8 mmol/L (3.5-5.1)
[2021-05-08] MEDS: TAMSULOSIN HCL 0.4 MG CAP PO SCH (08:59)
--- NOTE | 2021-05-08 11:00 | Pulmonology Progress Note ---
Date of Service May 08, 2021 Assessment & Plan (1) Acquired tracheomalacia: (2) Hypercapnic respiratory failure: (3) Diastolic heart failure: (4) Pulmonary hypertension: Plan: Impression: 71-year-old male admitted with lethargy due to hypercarbic respiratory failure improving with positive airway pressure. Is also found to have significant pulmonary hypertension. I suspect the patient has WHO class II and III pulmonary hypertension secondary to obesity hypoventilation syndrome and hypercarbia with likely chronic nocturnal hypoxemia. It is difficult to assess his [place] [employer] class Recommendations: 1. Obesity hypoventilation syndrome: His blood gases normalized with noninvasive positive pressure ventilation. He remains hypercarbic at baseline suggesting a chronic nature. At this point in time would recommend transitioning him to a nightly BiPAP at 16/10 cmH2O. Should he become lethargic during the day, repeat venous blood gas can be obtained and he can be placed back on BiPAP. Outpatient sleep study will need to be performed as well as PFTs if the patient's mental status allows. Case management will need to review with the patient's home to ensure BiPAP can be used in the outpatient setting. Discussed plan with respiratory therapy. Weight loss is paramount. 2. Pulmonary hypertension: Most likely secondary to obesity hypoventilation syndrome. Patient will need continued supplemental oxygen and BiPAP or AVAPS on discharge. Patient does not have COPD based on previous PFTs but these should be repeated on discharge as an outpatient. Would recommending repeating the patient's echocardiogram in 3 to 6 months after he demonstrates adequate compliance with noninvasive positive pressure ventilation to review right ventricular systolic function and estimated pressures. If they remain elevated, could consider referral to [facility] for right heart catheterization at that time. 3. Tracheobronchial malacia: Patient does appear to have a EDAC (expiratory dynamic airway collapse) as seen on CT scan. Suspect that this is a major contributor to his hypercarbia. Treatment is weight loss and positive airway pressure at night. Would avoid systemic steroids which can exacerbate this. 4. Altered mental status: Improved. Ammonia level was 78 on 05/05/2021. Evaluation will be deferred to the primary service. This could contribute to hypercarbia and altered mental status. We will also continue to follow PCO2. Further work-up per hospitalist team. 5. PT OT and out of bed as tolerated. Weight loss recommended. Thank you for allowing us to dissipate in the care of this patient. We will continue to follow along with you. [facility] has been contacted as well as case management to coordinate discharge on BiPAP. Disposition per primary service. Admission and Anticipated Discharge Date Admission Date: May 05, 2021 Subjective Patient seen and examined. He is awake and able to answer questions. He does keep his eyes closed for the majority of exam. He denies any specific complaints currently including shortness of breath, chest pain, palpitations. He is not coughing or wheezing. He is tolerating the mask reasonably well. Discussed with respiratory therapy. Apparently the patient was on all night. He was taken off her breakfast and then put back on for reasons that are not entirely clear Review of Systems Review of Systems: All systems reviewed & are unremarkable except as noted in Subjective Physical Exam Constitutional: WD/WN, vitals as above Neck: trachea midline, no thyromegaly Respiratory: normal respiratory effort, lungs clear to auscultation Cardiovascular: RRR, no murmur, no edema Gastrointestinal (Abdomen): normal bowel sounds, soft, nontender, no hepatosplenomegaly Musculoskeletal: Extremities: extremities normal to inspection Skin: no rashes, warm and dry Lymphatic: no cervical lymphadenopathy Results & Data Results & Data ([facility]) Vital Signs (Past 12 Hours) Vital Signs Temp Pulse Pulse Resp BP Pulse Ox 05/08/21 07:10 36.5 C 95 H 18 137/84 93 05/08/21 04:21 36.8 C 96 H 18 134/81 91 05/08/21 03:46 97 H 18 91 05/07/21 23:34 36.3 C L 96 H 18 117/74 96 Critical Care Results & Data Vital Signs (Past 12 Hours) Vital Signs Temp Pulse Pulse Resp BP Pulse Ox 05/08/21 07:10 36.5 C 95 H 18 137/84 93 05/08/21 04:21 36.8 C 96 H 18 134/81 91 05/08/21 03:46 97 H 18 91 05/07/21 23:34 36.3 C L 96 H 18 117/74 96 Lab & Micro Results (Past 24 Hours) RBC 4.87 M/uL (4.7-6.1) 05/08/21 WBC 5.52 K/uL (4.8-10.8) 05/08/21 Hgb 15.8 g/dL (14.0-18.0) 05/08/21 Hct 48.4 % (42-52) 05/08/21 MCV 99.4 fL (80-100) 05/08/21 MCH 32.4 pg (25-34) 05/08/21 MCHC 32.6 g/dL (32-36) 05/08/21 RDW Standard Deviation 52.2 fL (36.4-46.3) H 05/08/21 RDW Coefficient of Variation 14.4 % (11.5-14.5) 05/08/21 Plt Count 177 K/uL (130-400) 05/08/21 MPV 9.8 fL (7.4-10.4) 05/08/21 Neutrophils (%) (Auto) 67.8 % 05/08/21 Lymphocytes (%) (Auto) 17.6 % 05/08/21 Monocytes # (Auto) 0.65 K/uL (0.11-0.59) H 05/08/21 Eosinophils # (Auto) 0.13 K/uL (0-0.5) 05/08/21 Immature Granulocyte % (Auto) 0.2 % 05/08/21 Neutrophils # (Auto) 3.75 K/uL (1.4-6.5) 05/08/21 Lymphocytes # (Auto) 0.97 K/uL (1.2-3.4) L 05/08/21 Monocytes # (Auto) 0.65 K/uL (0.11-0.59) H 05/08/21 Eosinophils # (Auto) 0.13 K/uL (0-0.5) 05/08/21 Basophils # (Auto) 0.01 K/uL (0-0.2) 05/08/21 Immature Granulocyte # (Auto) 0.01 K/uL (0.00-0.02) 05/08/21 Na 145 mmol/L (136-145) 05/08/21 K 3.8 mmol/L (3.5-5.1) 05/08/21 Cl 101 mmol/L (98-107) 05/08/21 CO2 39 mmol/L (21-32) H 05/08/21 Anion Gap 5 (3-11) 05/08/21 BUN 28 mg/dl (6-23) H 05/08/21 Creatinine 1.13 mg/dl (0.6-1.4) 05/08/21 Estimated GFR ( Amer) 75.9 ml/min 05/08/21 Estimated GFR (Non-Af Amer) 65.5 ml/min 05/08/21 BUN/Creatinine Ratio 24.8 (10-20) H 05/08/21 Glu 95 mg/dl (70-99(Fasting)) 05/08/21 Ca 8.8 mg/dl (8.5-10.1) 05/08/21 Calcium Level 8.8 mg/dl (8.5-10.1) 05/08/21 07:37 05/08/21 Blood Gas Barometric Pressure 722.2 mm/Hg 05/08/21 07:37 05/08/21 Arterial Blood pH 7.37 (7.35-7.45) 05/08/21 07:37 05/08/21 Arterial Blood Partial Pressure CO2 67 mmHg (35-46) H 05/08/21 07:37 05/08/21 Arterial Blood Partial Pressure O2 59 mmHg (80-95) L 05/08/21 07:37 05/08/21 Arterial Blood HCO3 38 mmol/L (19-24) H 05/08/21 07:37 05/08/21 Arterial Blood Base Excess 9.7 mEq/L (-9-1.8) H 05/08/21 07:37 05/08/21 Arterial Blood Oxygen Saturation 89.3 % (90-95) L 05/08/21 07:37 05/08/21 Blood Gas Oxygen Given 4.5L 05/08/21 07:37 05/08/21 Gopal Test Pos (Pos) 05/08/21 07:37 05/08/21 Blood Gas Barometric Pressure 722.2 mm/Hg 05/08/21 07:37 05/08/21 Microbiology 05/05/21 15:49 Aerobic Blood Culture - Preliminary Blood No growth in Aerobic bottle after 48 hours. Anaerobic Blood Culture - Preliminary No growth in Anaerobic bottle after 48 hours. 05/05/21 Unknown Aerobic Blood Culture - Preliminary Blood No growth in Aerobic bottle after 48 hours. Anaerobic Blood Culture - Preliminary No growth in Anaerobic bottle after 48 hours. I & O Totals 24 Hours 05/07/21 05/08/21 05/09/21 06:59 06:59 06:59 Intake Total 1185 / 1185 795 / 795 Output Total 2350 / 2350 2001 Balance -1165 / -1165 -1207 / -1207 Cumulative 05/05/21 13:39 thru 05/08/21 06:42 Intake Total 3880 Output Total 7952 Balance -4072 RT Ventilator Mngmt (Last Documented) Ventilator Ordered Settings Respiratory Rate 18 05/08/21 07:10 Fraction of Inspired Oxygen 50 05/08/21 03:46 Ventilator - PT Measurements Respiratory Rate 18 PG Care Time/CCT Total # of Minutes Spent Total Time Spent with Patient: Total time spent is greater than 50% in coordination of care (as documented) at patient's floor/unit and/or counseling patient: Coding Level of Care Code 53968 Subseq Hosp Care Lvl 3 Diagnoses Acquired tracheomalacia J39.8 Hypercapnic respiratory failure J96.92 Diastolic heart failure I50.30 Pulmonary hypertension I27.20
--- NOTE | 2021-05-08 11:12 | Cardiology Progress Note ---
Date of Service May 08, 2021 Assessment & Plan (1) Acute on chronic respiratory failure with hypoxia and hypercapnia: (2) Severe pulmonary hypertension: (3) Cor pulmonale: (4) Elevated troponin I level: (5) Pneumonia: Plan: Patient admitted for acute on chronic respiratory failure with hypoxia and hypercapnia. He has severe underlying pulmonary hypertension with severely dilated RV with similar findings on current echo this admission as to November 2020 echo. He was to have outpatient right heart cath but this was not completed due to insurance reasons. He unfortunately has not had close f/u with pulmonology team over the last few months On admission Chest CTA was negative for pulmonary embolus. Continue BIPAP and appreciate pulm evaluation/advice. Patient with abnormal EKG, T wave inversions in anterior leads, but denies chest pain. Echo with normal LV systolic function. Mild troponin elevation consistent with myocardial strain with hypoxia. Continue furosemide 40 mg IV. Good outputs/diuresis since admission. Weight trending down. Monitor renal function/electrolytes. Case discussed with Dr. Jurado. Will follow. Admission and Anticipated Discharge Date Admission Date: May 05, 2021 Supervising Physician Co-Signing Physician Notes 71-year-old patient admitted with acute hypoxic and hypercapnic respiratory failure. BiPAP currently removed. He is able to answer questions and follow commands. Denies chest discomfort or shortness of breath. Fluid balance -1.3 L. Serum creatinine improved today. PE:VSS. GEN: Acutely ill, no acute distress. Heart: Regular, borderline tachycardic. No murmur appreciated. Lungs: Scattered rhonchi with expiratory wheezing bilaterally. Abd: Soft, nontender, normal bowel sounds. Extremities: No edema. A/P: Agree with above PA-C history, physical exam, assessment and plan. 71-year-old with acute on chronic respiratory failure with hypoxia and hypercapnia. Continue furosemide 40 mg daily. Follow daily weight, GFR, and electrolytes. BiPAP nightly as per direction of pulmonary medicine. Mildly elevated troponin secondary to hypoxia in the setting of pneumonia/hypoxic respiratory failure, and acute on chronic renal insufficiency. No regional wall motion abnormalities on 2D transthoracic echocardiogram to suggest plaque rupture event. Continue supportive care. Thank you for allow me to participate in the care of your patient Subjective Patient on Bipap. Per nursing staff, he remains confused this morning. Continuously undressing and taking off his monitors. Ate breakfast without issues. Review of systems limited at this time. Review of Systems Review of Systems: All systems reviewed & are unremarkable except as noted in HPI & below Physical Exam Constitutional: WD/WN, vitals as above + morbidly obese and comfortable; no acute distress Neck: trachea midline, no thyromegaly + thick neck Respiratory: + labored breathing (BIPAP in place) Auscultation: + diminished lung sounds and + rales (faint) Cardiovascular: Rate/Rhythm: regular rate and regular rhythm Heart Sounds: normal S1 and normal S2; no murmur Vessels: + JVD Extremities: + edema (Trace to 1+ b/l ) Gastrointestinal (Abdomen): normal bowel sounds, soft, nontender, no hepatosplenomegaly Neurologic: PERRL, EOMI, accommodation nl, no face palsy, no dysarthria Results & Data ([facility]) Vital Signs (Past 12 Hours) Vital Signs Temp Pulse Pulse Resp BP Pulse Ox 05/08/21 07:10 36.5 C 95 H 18 137/84 93 05/08/21 04:21 36.8 C 96 H 18 134/81 91 05/08/21 03:46 97 H 18 91 05/07/21 23:34 36.3 C L 96 H 18 117/74 96 Laboratory Results 05/08/21 05/08/21 05/08/21 Range/Units 07:37 07:37 07:37 WBC 5.52 (4.8-10.8) K/uL RBC 4.87 (4.7-6.1) M/uL Hgb 15.8 (14.0-18.0) g/dL Hct 48.4 (42-52) % MCV 99.4 (80-100) fL MCH 32.4 (25-34) pg MCHC 32.6 (32-36) g/dL RDW Std Deviation 52.2 H (36.4-46.3) fL RDW Coeff of Tai 14.4 (11.5-14.5) % Plt Count 177 (130-400) K/uL MPV 9.8 (7.4-10.4) fL Immature Gran % (Auto) 0.2 % Neut % (Auto) 67.8 % Lymph % (Auto) 17.6 % Allen % (Auto) 11.8 % Eos % (Auto) 2.4 % Baso % (Auto) 0.2 % Neut # (Auto) 3.75 (1.4-6.5) K/uL Lymph # (Auto) 0.97 L (1.2-3.4) K/uL Allen # (Auto) 0.65 H (0.11-0.59) K/uL Eos # (Auto) 0.13 (0-0.5) K/uL Baso # (Auto) 0.01 (0-0.2) K/uL Immature Gran # (Auto) 0.01 (0.00-0.02) K/uL ABG pH 7.37 (7.35-7.45) ABG pCO2 67 H (35-46) mmHg ABG pO2 59 L (80-95) mmHg ABG HCO3 38 H (19-24) mmol/L ABG O2 Saturation 89.3 L (90-95) % ABG Base Excess 9.7 H (-9-1.8) mEq/L Gopal Test Pos (Pos) Barometric Pressure 722.2 mm/Hg Oxygen Given 4.5L Sodium 145 (136-145) mmol/L Potassium 3.8 (3.5-5.1) mmol/L Chloride 101 (98-107) mmol/L Carbon Dioxide 39 H (21-32) mmol/L Anion Gap 5 (3-11) BUN 28 H (6-23) mg/dl Creatinine 1.13 (0.6-1.4) mg/dl Est Cr Clr Drug Dosing 71.6 ml/min Est GFR ( Amer) 75.9 ml/min Est GFR (Non-Af Amer) 65.5 ml/min BUN/Creatinine Ratio 24.8 H (10-20) Glucose 95 (70-99(Fasting)) mg/dl Calcium 8.8 (8.5-10.1) mg/dl 05/07/21 Range/Units 14:56 WBC (4.8-10.8) K/uL RBC (4.7-6.1) M/uL Hgb (14.0-18.0) g/dL Hct (42-52) % MCV (80-100) fL MCH (25-34) pg MCHC (32-36) g/dL RDW Std Deviation (36.4-46.3) fL RDW Coeff of Tai (11.5-14.5) % Plt Count (130-400) K/uL MPV (7.4-10.4) fL Immature Gran % (Auto) % Neut % (Auto) % Lymph % (Auto) % Allen % (Auto) % Eos % (Auto) % Baso % (Auto) % Neut # (Auto) (1.4-6.5) K/uL Lymph # (Auto) (1.2-3.4) K/uL Allen # (Auto) (0.11-0.59) K/uL Eos # (Auto) (0-0.5) K/uL Baso # (Auto) (0-0.2) K/uL Immature Gran # (Auto) (0.00-0.02) K/uL ABG pH 7.42 (7.35-7.45) ABG pCO2 61 H (35-46) mmHg ABG pO2 82 (80-95) mmHg ABG HCO3 38 H (19-24) mmol/L ABG O2 Saturation 96.0 H (90-95) % ABG Base Excess 10.6 H (-9-1.8) mEq/L Gopal Test Pos (Pos) Barometric Pressure 716.6 mm/Hg Oxygen Given 10 L Sodium (136-145) mmol/L Potassium (3.5-5.1) mmol/L Chloride (98-107) mmol/L Carbon Dioxide (21-32) mmol/L Anion Gap (3-11) BUN (6-23) mg/dl Creatinine (0.6-1.4) mg/dl Est Cr Clr Drug Dosing ml/min Est GFR ( Amer) ml/min Est GFR (Non-Af Amer) ml/min BUN/Creatinine Ratio (10-20) Glucose (70-99(Fasting)) mg/dl Calcium (8.5-10.1) mg/dl Diagnostic Findings Telemetry reviewed: NSR without arrhythmias Medications Administered Current Inpatient Medications Acetaminophen (Acetaminophen 325 Mg Tab) 650 mg PO Q4H PRN PRN Reason: Pain or Fever Stop: 06/04/21 19:40 Last Admin: 05/07/21 09:25 Dose: 650 mg Documented by: Atorvastatin Calcium (Atorvastatin 40 Mg Tab) 40 mg PO DAILY [facility] Stop: 06/05/21 08:59 Last Admin: 05/08/21 08:17 Dose: 40 mg Documented by: Cyanocobalamin (Cyanocobalamin (B-12) 500 Mcg Tablet) 1,000 mcg PO DAILY [facility] Stop: 06/05/21 08:59 Last Admin: 05/08/21 08:17 Dose: 1,000 mcg Documented by: Divalproex Sodium (Divalproex Extended Release 500 Mg Tab) 1,000 mg PO QAM IVANA Stop: 06/05/21 08:59 Last Admin: 05/06/21 08:38 Dose: 1,000 mg Documented by: Divalproex Sodium (Divalproex Extended Release 500 Mg Tab) 1,[address] [facility] Stop: 06/04/21 20:59 Last Admin: 05/05/21 20:49 Dose: 1,500 mg Documented by: Finasteride (Finasteride 5 Mg Tab) 5 mg PO QAM IVANA Stop: 06/05/21 08:59 Last Admin: 05/08/21 08:17 Dose: 5 mg Documented by: Furosemide (Furosemide 40 Mg/4 Ml Vial) 40 mg IV DAILY [facility] Stop: 06/07/21 11:14 Gabapentin (Gabapentin 100 Mg Cap) 200 mg PO TID IV[facility] Stop: 06/04/21 20:59 Last Admin: 05/08/21 08:18 Dose: 200 mg Documented by: Valproic Acid 1,500 mg/ (Dextrose) 115 mls @ 115 mls/hr IV HS IVANA Stop: 06/05/21 20:59 Last Infusion: 05/07/21 21:29 Dose: Infused Documented by: Valproic Acid 1,000 mg/ (Dextrose) 60 mls @ 55 mls/hr IV DAILYBB IVANA Stop: 06/06/21 06:29 Last Infusion: 05/08/21 06:42 Dose: Infused Documented by: Levothyroxine Sodium (Levothyroxine Sodium 75 Mcg Tablet) 75 mcg PO DAILYBB IVANA Stop: 06/05/21 06:29 Last Admin: 05/08/21 05:36 Dose: 75 mcg Documented by: Mirtazapine (Mirtazapine Tab 15 Mg Tab) 7.5 mg PO QPM IVANA Stop: 06/04/21 20:59 Last Admin: 05/07/21 20:29 Dose: 7.5 mg Documented by: Tamsulosin HCl (Tamsulosin Hcl 0.4 Mg Cap) 0.4 mg PO DAILY [facility] Stop: 06/05/21 08:59 Last Admin: 05/08/21 08:59 Dose: 0.4 mg Documented by: Vitamin D (Cholecalciferol 1,000 Units 25 Mcg Tab) 2,000 units PO DAILY [facility] Stop: 06/05/21 08:59 Last Admin: 05/08/21 08:17 Dose: 2,000 units Documented by:
[2021-05-08] MEDS: FUROSEMIDE 40 MG/4 ML VIAL IV SCH (11:30)
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
[2021-05-08] MEDS: VALPROATE SOD 1,500 MG in DEXTROSE 5% 100 ML IV SCH (21:25)
[2021-05-08] MEDS: MIRTAZAPINE TAB 15 MG TAB PO SCH (21:32)
[2021-05-09] MEDS: LEVOTHYROXINE SODIUM 75 MCG TABLET PO SCH (06:07)
[2021-05-09] MEDS: VALPROATE SOD 1,000 MG in DEXTROSE 5% 50 ML IV SCH (06:07)
[2021-05-09 07:42] LABS: BUN Creatinine Ratio 25.2 (10-20); Calcium 8.8 mg/dl (8.5-10.1); Creatinine Clr Calc Pharmacy 75.7 ml/min; Est GFR (African American) 81.1 ml/min; Phosphorus 2.8 mg/dl (2.5-4.9); Potassium 4.2 mmol/L (3.5-5.1)
[2021-05-09 08:33] LABS: Hematocrit (blood only) 50.8 % (42-52); Hemoglobin 16.4 g/dL (14.0-18.0); Mean Corpuscular Hemoglobin 32.2 pg (25-34); Mean Corpuscular Hgb Conc 32.3 g/dL (32-36); Mean Corpuscular Volume 99.8 fL (80-100); RDW Coefficient of Variation 14.4 % (11.5-14.5); RDW Standard Deviation 52.7 fL (36.4-46.3); Red Blood Count 5.09 M/uL (4.7-6.1); White Blood Count 4.28 K/uL (4.8-10.8)
[2021-05-09] MEDS: CYANOCOBALAMIN (B-12) 500 MCG TABLET PO SCH (08:50)
[2021-05-09] MEDS: CHOLECALCIFEROL 1,000 UNITS 25 MCG TAB PO SCH (08:50)
[2021-05-09] MEDS: TAMSULOSIN HCL 0.4 MG CAP PO SCH (08:50)
[2021-05-09] MEDS: FUROSEMIDE 40 MG/4 ML VIAL IV SCH (08:51)
[2021-05-09] MEDS: FINASTERIDE 5 MG TAB PO SCH (08:51)
[2021-05-09] MEDS: ATORVASTATIN 40 MG TAB PO SCH (08:51)
[2021-05-09 08:52] LABS: Basophils # (auto) 0.01 K/uL (0-0.2); Basophils % (auto) 0.2 %; Eosinophils # (auto) 0.12 K/uL (0-0.5); Eosinophils % (auto) 2.8 %; Immature Granulocytes # (auto) 0.04 K/uL (0.00-0.02); Immature Granulocytes % (auto) 0.9 %; Lymphocytes # (auto) 0.85 K/uL (1.2-3.4); Lymphocytes % (auto) 19.9 %; Mean Platelet Volume 10.5 fL (7.4-10.4); Monocytes # (auto) 0.55 K/uL (0.11-0.59); Monocytes % (auto) 12.9 %; Neutrophils # (auto) 2.71 K/uL (1.4-6.5); Neutrophils % (auto) 63.3 %; Platelet Count 130 K/uL (130-400); Platelet Estimate Decreased (Normal)
[2021-05-09] MEDS: GABAPENTIN 100 MG CAP PO SCH ×3 (09:45→20:16)
--- NOTE | 2021-05-09 11:48 | Cardiology Progress Note ---
Date of Service May 09, 2021 Assessment & Plan (1) Acute on chronic respiratory failure with hypoxia and hypercapnia: (2) Severe pulmonary hypertension: (3) Cor pulmonale: (4) Elevated troponin I level: (5) Pneumonia: Plan: The patient is clinically stable. I believe we can back down on his diuretics. I have switched him to 40 mg of Lasix p.o. daily. Admission and Anticipated Discharge Date Admission Date: May 05, 2021 Subjective The patient is resting. No complaints today. Review of Systems Review of Systems: Review of Systems: See HPI for pertinent positives. All other 10 point review of systems are negative. Physical Exam Physical Exam: General: no acute distress and stated age Head: normocephalic, no masses, lesions, tenderness or abnormalities Eyes: conjunctiva are pink and non-injected, sclera clear Neck: supple, no adenopathy, no bruits, normal jugular venous pulse, no hepatojugular reflux Chest: normal shape and normal respiratory effort Lungs: clear to auscultation and percussion Cardiac Exam: - regular rate & rhythm, no murmurs gallops or rubs - normal S1, normal S2 Pulses: 2(+) throughout Abdomen: abdomen soft, non-tender, no abnormal masses and no hepatosplenomegaly Musculoskeletal: no gait disturbance, no joint inflammation, no deforming arthritis Extremities: no edema and no cyanosis Neuro: grossly normal exam Results & Data ([facility]) Vital Signs (Past 12 Hours) Vital Signs Temp Pulse Pulse Resp BP BP Pulse Ox 05/09/21 08:09 36.4 C L 86 24 131/84 91 05/09/21 07:30 94 H 05/09/21 04:18 36.4 C L 69 20 126/80 92 05/09/21 03:15 84 14 94 Laboratory Results Laboratory Results - last 24 hr 05/09/21 05/09/21 06:58 06:58 WBC 4.28 L RBC 5.09 Hgb 16.4 Hct 50.8 MCV 99.8 MCH 32.2 MCHC 32.3 RDW Std Deviation 52.7 H RDW Coeff of Tai 14.4 Plt Count 130 MPV 10.5 H Immature Gran % (Auto) 0.9 Neut % (Auto) 63.3 Lymph % (Auto) 19.9 [place] % (Auto) 12.9 Eos % (Auto) 2.8 Baso % (Auto) 0.2 Neut # (Auto) 2.71 Lymph # (Auto) 0.85 L [place] # (Auto) 0.55 Eos # (Auto) 0.12 Baso # (Auto) 0.01 Immature Gran # (Auto) 0.04 H Platelet Estimate Decreased L Sodium 144 Potassium 4.2 Chloride 103 Carbon Dioxide 36 H Anion Gap 5 BUN 27 H Creatinine 1.07 Est Cr Clr Drug Dosing 75.7 Est GFR ( Amer) 81.1 Est GFR (Non-Af Amer) 70.0 BUN/Creatinine Ratio 25.2 H Glucose 99 Calcium 8.8 Phosphorus 2.8 Medications Administered Current Inpatient Medications Acetaminophen (Acetaminophen 325 Mg Tab) 650 mg PO Q4H PRN PRN Reason: Pain or Fever Stop: 06/04/21 19:40 Last Admin: 05/07/21 09:25 Dose: 650 mg Documented by: Atorvastatin Calcium (Atorvastatin 40 Mg Tab) 40 mg PO DAILY [facility] Stop: 06/05/21 08:59 Last Admin: 05/09/21 08:51 Dose: 40 mg Documented by: Cyanocobalamin (Cyanocobalamin (B-12) 500 Mcg Tablet) 1,000 mcg PO DAILY [facility] Stop: 06/05/21 08:59 Last Admin: 05/09/21 08:50 Dose: 1,000 mcg Documented by: Divalproex Sodium (Divalproex Extended Release 500 Mg Tab) 1,000 mg PO QAM [facility] Stop: 06/05/21 08:59 Last Admin: 05/06/21 08:38 Dose: 1,000 mg Documented by: Divalproex Sodium (Divalproex Extended Release 500 Mg Tab) 1,500 mg PO HS [facility] Stop: 06/04/21 20:59 Last Admin: 05/05/21 20:49 Dose: 1,500 mg Documented by: Finasteride (Finasteride 5 Mg Tab) 5 mg PO QAM [facility] Stop: 06/05/21 08:59 Last Admin: 05/09/21 08:51 Dose: 5 mg Documented by: Furosemide (Furosemide 40 Mg Tab) 40 mg PO QAM [facility] Stop: 06/09/21 08:59 Gabapentin (Gabapentin 100 Mg Cap) 200 mg PO TID [facility] Stop: 06/04/21 20:59 Last Admin: 05/09/21 09:45 Dose: 200 mg Documented by: Valproic Acid 1,500 mg/ (Dextrose) 115 mls @ 115 mls/hr IV HS [facility] Stop: 06/05/21 20:59 Last Infusion: 05/08/21 22:25 Dose: Infused Documented by: Valproic Acid 1,000 mg/ (Dextrose) 110 mls @ 115 mls/hr IV DAILYBB [facility] Stop: 06/06/21 06:29 Levothyroxine Sodium (Levothyroxine Sodium 75 Mcg Tablet) 75 mcg PO DAILYBB [facility] Stop: 06/05/21 06:29 Last Admin: 05/09/21 06:07 Dose: 75 mcg Documented by: Mirtazapine (Mirtazapine Tab 15 Mg Tab) 7.5 mg PO QPM [facility] Stop: 06/04/21 20:59 Last Admin: 05/08/21 21:32 Dose: 7.5 mg Documented by: Tamsulosin HCl (Tamsulosin Hcl 0.4 Mg Cap) 0.4 mg PO DAILY [facility] Stop: 06/05/21 08:59 Last Admin: 05/09/21 08:50 Dose: 0.4 mg Documented by: Vitamin D (Cholecalciferol 1,000 Units 25 Mcg Tab) 2,000 units PO DAILY [facility] Stop: 06/05/21 08:59 Last Admin: 05/09/21 08:50 Dose: 2,000 units Documented by:
--- NOTE | 2021-05-09 12:02 | Pulmonology Progress Note ---
Date of Service May 09, 2021 Assessment & Plan (1) Acquired tracheomalacia: (2) Hypercapnic respiratory failure: (3) Diastolic heart failure: (4) Pulmonary hypertension: Plan: Impression: 71-year-old male admitted with lethargy due to hypercarbic respiratory failure improving with positive airway pressure. Is also found to have significant pulmonary hypertension. I suspect the patient has WHO class II and III pulmonary hypertension secondary to obesity hypoventilation syndrome and hypercarbia with likely chronic nocturnal hypoxemia. It is difficult to assess his [place] [employer] class. He is significantly improved with application of nocturnal BiPAP Recommendations: 1. Obesity hypoventilation syndrome: His blood gases normalized with no ninvasive positive pressure ventilation. He remains hypercarbic at baseline suggesting a chronic nature. At this point in time would recommend nightly BiPAP at 16/10 cmH2O. Should he become lethargic during the day, repeat venous blood gas can be obtained and he can be placed back on BiPAP. Outpatient sleep study will need to be performed as well as PFTs if the patient's mental status allows. Case management will need to review with the patient's home care unit to ensure BiPAP can be used in the outpatient setting. Weight loss is paramount. If BiPAP is arranged, the patient can be dismissed with the hospital with outpatient follow-up in the pulmonary clinic. 2. Pulmonary hypertension: Most likely secondary to obesity hypoventilation syndrome. Patient will need continued supplemental oxygen and BiPAP on discharge. Patient does not have COPD based on previous PFTs but these should be repeated on discharge as an outpatient. Would recommending repeating the patient's echocardiogram in 3 to 6 months after he demonstrates adequate compliance with noninvasive positive pressure ventilation to review right ventricular systolic function and estimated pressures. If they remain elevated, could consider referral to pulmonary hypertension center for right heart catheterization at that time. 3. Tracheobronchial malacia: Patient does appear to have a EDAC (expiratory dynamic airway collapse) as seen on CT scan. Suspect that this is a major contributor to his hypercarbia. Treatment is weight loss and positive airway pressure at night. Would avoid systemic steroids which can exacerbate this. 4. Altered mental status: Improved. Ammonia level was 78 on 05/05/2021. Per p rimary 5. PT OT and out of bed as tolerated. Weight loss recommended. Recommend Padilla be discontinued Thank you for allowing us to participate in the care of this patient. He appears significantly improved at this point time and can likely be dismissed from the hospital once BiPAP can be arranged. Feel free to contact us if we can be of additional assistance. Pulmonary will sign off Admission and Anticipated Discharge Date Admission Date: May 05, 2021 Subjective Patient seen and examined. EMR reviewed. Discussed with bedside nurse. The patient is sleeping but easily arousable and much more oriented and interactive today. He tolerated BiPAP last night. He denies any new complaints. Review of Systems Review of Systems: All systems reviewed & are unremarkable except as noted in Subjective Physical Exam Constitutional: WD/WN, vitals as above Neck: trachea midline, no thyromegaly Respiratory: normal respiratory effort, lungs clear to auscultation Cardiovascular: RRR, no murmur, no edema Gastrointestinal (Abdomen): normal bowel sounds, soft, nontender, no hepatosplenomegaly Musculoskeletal: Extremities: extremities normal to inspection Skin: no rashes, warm and dry Lymphatic: no cervical lymphadenopathy Results & Data Results & Data ([facility]) Vital Signs (Past 12 Hours) Vital Signs Temp Pulse Pulse Resp BP BP Pulse Ox 05/09/21 11:50 36.5 C 91 H 19 120/78 92 05/09/21 08:09 36.4 C L 86 24 131/84 91 05/09/21 07:30 94 H 05/09/21 04:18 36.4 C L 69 20 126/80 92 05/09/21 03:15 84 14 94 Laboratory Results 05/09/21 06:58 05/09/21 06:58 PG Care Time/CCT Total # of Minutes Spent Total Time Spent with Patient: Total time spent is greater than 50% in coordination of care (as documented) at patient's floor/unit and/or counseling patient: Coding Level of Care Code 69211 Subseq Hosp Care Lvl 2 Diagnoses Acquired tracheomalacia J39.8 Hypercapnic respiratory failure J96.92 Diastolic heart failure I50.30 Pulmonary hypertension I27.20
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
[2021-05-09] MEDS: MIRTAZAPINE TAB 15 MG TAB PO SCH (20:17)
[2021-05-09] MEDS: VALPROATE SOD 1,500 MG in DEXTROSE 5% 100 ML IV SCH (20:18)
[2021-05-10] MEDS: VALPROATE SOD 1,000 MG in DEXTROSE 5% 100 ML IV SCH (05:38)
[2021-05-10] MEDS: LEVOTHYROXINE SODIUM 75 MCG TABLET PO SCH (05:38)
[2021-05-10 06:35] LABS: Basophils # (auto) 0.01 K/uL (0-0.2); Basophils % (auto) 0.2 %; Eosinophils # (auto) 0.16 K/uL (0-0.5); Eosinophils % (auto) 3.1 %; Hemoglobin 16.8 g/dL (14.0-18.0); Lymphocytes # (auto) 1.37 K/uL (1.2-3.4); Lymphocytes % (auto) 26.8 %; Mean Corpuscular Hemoglobin 32.2 pg (25-34); Mean Corpuscular Hgb Conc 32.3 g/dL (32-36); Mean Corpuscular Volume 99.8 fL (80-100); Mean Platelet Volume 10.3 fL (7.4-10.4); Monocytes # (auto) 0.66 K/uL (0.11-0.59); Monocytes % (auto) 12.9 %; Neutrophils # (auto) 2.92 K/uL (1.4-6.5); Platelet Count 170 K/uL (130-400); RDW Coefficient of Variation 14.3 % (11.5-14.5); RDW Standard Deviation 52.3 fL (36.4-46.3); Red Blood Count 5.21 M/uL (4.7-6.1); White Blood Count 5.12 K/uL (4.8-10.8)
[2021-05-10 06:57] LABS: BUN Creatinine Ratio 23.3 (10-20); Calcium 9.1 mg/dl (8.5-10.1); Creatinine Clr Calc Pharmacy 68.3 ml/min; Est GFR (African American) 70.6 ml/min; Est GFR (Non-African American) 60.9 ml/min
[2021-05-10] MEDS: TAMSULOSIN HCL 0.4 MG CAP PO SCH (08:15)
[2021-05-10] MEDS: FUROSEMIDE 40 MG TAB PO SCH (08:15)
[2021-05-10] MEDS: ATORVASTATIN 40 MG TAB PO SCH (08:15)
[2021-05-10] MEDS: CHOLECALCIFEROL 1,000 UNITS 25 MCG TAB PO SCH (08:15)
[2021-05-10] MEDS: GABAPENTIN 100 MG CAP PO SCH ×3 (08:15→20:28)
[2021-05-10] MEDS: CYANOCOBALAMIN (B-12) 500 MCG TABLET PO SCH (08:16)
[2021-05-10] MEDS: FINASTERIDE 5 MG TAB PO SCH (08:16)
--- NOTE | 2021-05-10 13:11 | Cardiology Progress Note ---
Date of Service May 10, 2021 Assessment & Plan (1) Acute on chronic respiratory failure with hypoxia and hypercapnia: (2) Severe pulmonary hypertension: (3) Cor pulmonale: (4) Elevated troponin I level: (5) Pneumonia: Plan: The patient is clinically stable. Pulmonary notes appreciated. No new recommendations at this time. Admission and Anticipated Discharge Date Admission Date: May 05, 2021 Subjective The patient is resting with BiPAP on Review of Systems Review of Systems: Review of Systems: See HPI for pertinent positives. All other 10 point review of systems are negative. Physical Exam Physical Exam: General: no acute distress and stated age Head: normocephalic, no masses, lesions, tenderness or abnormalities Eyes: conjunctiva are pink and non-injected, sclera clear Neck: supple, no adenopathy, no bruits, normal jugular venous pulse, no hepatojugular reflux Chest: normal shape and normal respiratory effort Lungs: clear to auscultation and percussion Cardiac Exam: - regular rate & rhythm, no murmurs gallops or rubs - normal S1, normal S2 Pulses: 2(+) throughout Abdomen: abdomen soft, non-tender, no abnormal masses and no hepatosplenomegaly Musculoskeletal: no gait disturbance, no joint inflammation, no deforming arthritis Extremities: no edema and no cyanosis Neuro: grossly normal exam Results & Data ([facility]) Vital Signs (Past 12 Hours) Vital Signs Temp Pulse Pulse Resp BP BP Pulse Ox 05/10/21 11:18 36.9 C 73 19 139/85 94 05/10/21 10:58 90 05/10/21 07:50 87 05/10/21 07:18 36.6 C 88 20 136/82 92 05/10/21 03:28 36.7 C 91 H 18 130/82 96 05/10/21 02:58 91 H 19 92 Laboratory Results Laboratory Results - last 24 hr 05/10/21 05/10/21 05:42 05:42 WBC 5.12 RBC 5.21 Hgb 16.8 Hct 52.0 MCV 99.8 MCH 32.2 MCHC 32.3 RDW Std Deviation 52.3 H RDW Coeff of Tai 14.3 Plt Count 170 MPV 10.3 Immature Gran % (Auto) 0.0 Neut % (Auto) 57.0 Lymph % (Auto) 26.8 [place] % (Auto) 12.9 Eos % (Auto) 3.1 Baso % (Auto) 0.2 Neut # (Auto) 2.92 Lymph # (Auto) 1.37 [place] # (Auto) 0.66 H Eos # (Auto) 0.16 Baso # (Auto) 0.01 Immature Gran # (Auto) 0.00 Sodium 145 Potassium 4.0 Chloride 101 Carbon Dioxide 38 H Anion Gap 6 BUN 28 H Creatinine 1.20 Est Cr Clr Drug Dosing 68.3 Est GFR ( Amer) 70.6 Est GFR (Non-Af Amer) 60.9 BUN/Creatinine Ratio 23.3 H Glucose 102 H Calcium 9.1 Medications Administered Current Inpatient Medications Acetaminophen (Acetaminophen 325 Mg Tab) 650 mg PO Q4H PRN PRN Reason: Pain or Fever Stop: 06/04/21 19:40 Last Admin: 05/07/21 09:25 Dose: 650 mg Documented by: Atorvastatin Calcium (Atorvastatin 40 Mg Tab) 40 mg PO DAILY [facility] Stop: 06/05/21 08:59 Last Admin: 05/10/21 08:15 Dose: 40 mg Documented by: Cyanocobalamin (Cyanocobalamin (B-12) 500 Mcg Tablet) 1,000 mcg PO DAILY [facility] Stop: 06/05/21 08:59 Last Admin: 05/10/21 08:16 Dose: 1,000 mcg Documented by: Divalproex Sodium (Divalproex Extended Release 500 Mg Tab) 1,000 mg PO QAM [facility] Stop: 06/05/21 08:59 Last Admin: 05/06/21 08:38 Dose: 1,000 mg Documented by: Divalproex Sodium (Divalproex Extended Release 500 Mg Tab) 1,500 mg PO HS [facility] Stop: 06/04/21 20:59 Last Admin: 05/05/21 20:49 Dose: 1,500 mg Documented by: Finasteride (Finasteride 5 Mg Tab) 5 mg PO QAM [facility] Stop: 06/05/21 08:59 Last Admin: 05/10/21 08:16 Dose: 5 mg Documented by: Furosemide (Furosemide 40 Mg Tab) 40 mg PO QAM [facility] Stop: 06/09/21 08:59 Last Admin: 05/10/21 08:15 Dose: 40 mg Documented by: Gabapentin (Gabapentin 100 Mg Cap) 200 mg PO TID [facility] Stop: 06/04/21 20:59 Last Admin: 05/10/21 08:15 Dose: 200 mg Documented by: Valproic Acid 1,500 mg/ (Dextrose) 115 mls @ 115 mls/hr IV HS [facility] Stop: 06/05/21 20:59 Last Infusion: 05/09/21 21:20 Dose: Infused Documented by: Valproic Acid 1,000 mg/ (Dextrose) 110 mls @ 115 mls/hr IV DAILYBB [facility] Stop: 06/06/21 06:29 Last Infusion: 05/10/21 06:40 Dose: Infused Documented by: Levothyroxine Sodium (Levothyroxine Sodium 75 Mcg Tablet) 75 mcg PO DAILYBB [facility] Stop: 06/05/21 06:29 Last Admin: 05/10/21 05:38 Dose: 75 mcg Documented by: Mirtazapine (Mirtazapine Tab 15 Mg Tab) 7.5 mg PO QPM [facility] Stop: 06/04/21 20:59 Last Admin: 05/09/21 20:17 Dose: 7.5 mg Documented by: Tamsulosin HCl (Tamsulosin Hcl 0.4 Mg Cap) 0.4 mg PO DAILY [facility] Stop: 06/05/21 08:59 Last Admin: 05/10/21 08:15 Dose: 0.4 mg Documented by: Vitamin D (Cholecalciferol 1,000 Units 25 Mcg Tab) 2,000 units PO DAILY [facility] Stop: 06/05/21 08:59 Last Admin: 05/10/21 08:15 Dose: 2,000 units Documented by:
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
[2021-05-10] MEDS: VALPROATE SOD 1,500 MG in DEXTROSE 5% 100 ML IV SCH (20:29)
[2021-05-10] MEDS: MIRTAZAPINE TAB 15 MG TAB PO SCH (20:29)
[2021-05-11] MEDS: VALPROATE SOD 1,000 MG in DEXTROSE 5% 100 ML IV SCH (05:36)
[2021-05-11] MEDS: LEVOTHYROXINE SODIUM 75 MCG TABLET PO SCH (05:37)
[2021-05-11 07:40] LABS: Basophils # (auto) 0.01 K/uL (0-0.2); Basophils % (auto) 0.2 %; Eosinophils # (auto) 0.16 K/uL (0-0.5); Eosinophils % (auto) 3.4 %; Hemoglobin 16.2 g/dL (14.0-18.0); Immature Granulocytes # (auto) 0.01 K/uL (0.00-0.02); Immature Granulocytes % (auto) 0.2 %; Lymphocytes # (auto) 1.43 K/uL (1.2-3.4); Mean Corpuscular Hemoglobin 32.1 pg (25-34); Mean Corpuscular Hgb Conc 32.4 g/dL (32-36); Mean Platelet Volume 10.1 fL (7.4-10.4); Monocytes # (auto) 0.64 K/uL (0.11-0.59); Monocytes % (auto) 13.4 %; Neutrophils # (auto) 2.52 K/uL (1.4-6.5); Neutrophils % (auto) 52.8 %; Platelet Count 149 K/uL (130-400); RDW Coefficient of Variation 14.4 % (11.5-14.5); RDW Standard Deviation 51.6 fL (36.4-46.3); Red Blood Count 5.05 M/uL (4.7-6.1); White Blood Count 4.77 K/uL (4.8-10.8)
[2021-05-11] MEDS: GABAPENTIN 100 MG CAP PO SCH ×3 (07:51→20:12)
[2021-05-11] MEDS: FINASTERIDE 5 MG TAB PO SCH (07:52)
[2021-05-11] MEDS: CYANOCOBALAMIN (B-12) 500 MCG TABLET PO SCH (07:52)
[2021-05-11] MEDS: FUROSEMIDE 40 MG TAB PO SCH (07:52)
[2021-05-11] MEDS: ATORVASTATIN 40 MG TAB PO SCH (07:52)
[2021-05-11] MEDS: TAMSULOSIN HCL 0.4 MG CAP PO SCH (07:52)
[2021-05-11] MEDS: CHOLECALCIFEROL 1,000 UNITS 25 MCG TAB PO SCH (07:52)
[2021-05-11 08:04] LABS: BUN Creatinine Ratio 23.3 (10-20); Calcium 8.8 mg/dl (8.5-10.1); Est GFR (African American) 70.6 ml/min; Est GFR (Non-African American) 60.9 ml/min; Potassium 4.1 mmol/L (3.5-5.1)
[2021-05-11] MEDS: MIRTAZAPINE TAB 15 MG TAB PO SCH (20:12)
[2021-05-11] MEDS: VALPROATE SOD 1,500 MG in DEXTROSE 5% 100 ML IV SCH (20:13)
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
[2021-05-12] MEDS: LEVOTHYROXINE SODIUM 75 MCG TABLET PO SCH (05:34)
[2021-05-12] MEDS: VALPROATE SOD 1,000 MG in DEXTROSE 5% 100 ML IV SCH (05:37)
[2021-05-12 06:47] LABS: Calcium 8.8 mg/dl (8.5-10.1); Creatinine Clr Calc Pharmacy 71.9 ml/min; Est GFR (African American) 75.9 ml/min; Est GFR (Non-African American) 65.5 ml/min; Potassium 4.6 mmol/L (3.5-5.1)
[2021-05-12] MEDS: CHOLECALCIFEROL 1,000 UNITS 25 MCG TAB PO SCH (08:17)
[2021-05-12] MEDS: ATORVASTATIN 40 MG TAB PO SCH (08:17)
[2021-05-12] MEDS: FUROSEMIDE 40 MG TAB PO SCH (08:18)
[2021-05-12] MEDS: FINASTERIDE 5 MG TAB PO SCH (08:18)
[2021-05-12] MEDS: CYANOCOBALAMIN (B-12) 500 MCG TABLET PO SCH (08:18)
[2021-05-12] MEDS: GABAPENTIN 100 MG CAP PO SCH ×3 (08:19→21:35)
[2021-05-12] MEDS: TAMSULOSIN HCL 0.4 MG CAP PO SCH (08:19)
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
[2021-05-12] MEDS ORDERED: FUROSEMIDE INJ 20 MG/2 ML VIAL IV ONE (17:22)
[2021-05-12] MEDS: DIVALPROEX EXTENDED RELEASE 500 MG TAB PO SCH (21:35)
[2021-05-12] MEDS: MIRTAZAPINE TAB 15 MG TAB PO SCH (21:35)
[2021-05-13] MEDS: LEVOTHYROXINE SODIUM 75 MCG TABLET PO SCH (07:09)
[2021-05-13] MEDS: CHOLECALCIFEROL 1,000 UNITS 25 MCG TAB PO SCH (08:24)
[2021-05-13] MEDS: ATORVASTATIN 40 MG TAB PO SCH (08:24)
[2021-05-13] MEDS: CYANOCOBALAMIN (B-12) 500 MCG TABLET PO SCH (08:25)
[2021-05-13] MEDS: FINASTERIDE 5 MG TAB PO SCH (08:25)
[2021-05-13] MEDS: TAMSULOSIN HCL 0.4 MG CAP PO SCH (08:26)
[2021-05-13] MEDS: FUROSEMIDE 40 MG TAB PO SCH (08:26)
[2021-05-13] MEDS: GABAPENTIN 100 MG CAP PO SCH ×3 (08:26→20:35)
[2021-05-13] MEDS: DIVALPROEX EXTENDED RELEASE 500 MG TAB PO SCH ×2 (09:01→20:34)
[2021-05-13] MEDS: MIRTAZAPINE TAB 15 MG TAB PO SCH (20:34)
[2021-05-13] MEDS ORDERED: FUROSEMIDE INJ 20 MG/2 ML VIAL IV ONE (22:13)
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
[2021-05-14] MEDS: LEVOTHYROXINE SODIUM 75 MCG TABLET PO SCH (06:13)
[2021-05-14] MEDS: FINASTERIDE 5 MG TAB PO SCH (09:12)
[2021-05-14] MEDS: FUROSEMIDE 40 MG TAB PO SCH (09:12)
[2021-05-14] MEDS: TAMSULOSIN HCL 0.4 MG CAP PO SCH (09:12)
[2021-05-14] MEDS: GABAPENTIN 100 MG CAP PO SCH ×3 (09:13→19:55)
[2021-05-14] MEDS: ATORVASTATIN 40 MG TAB PO SCH (09:13)
[2021-05-14] MEDS: DIVALPROEX EXTENDED RELEASE 500 MG TAB PO SCH ×2 (09:13→19:55)
[2021-05-14] MEDS: CYANOCOBALAMIN (B-12) 500 MCG TABLET PO SCH (09:13)
[2021-05-14] MEDS: CHOLECALCIFEROL 1,000 UNITS 25 MCG TAB PO SCH (09:13)
[2021-05-14 10:51] LABS: BUN Creatinine Ratio 22.6 (10-20); Calcium 8.8 mg/dl (8.5-10.1); Creatinine Clr Calc Pharmacy 65.5 ml/min; Est GFR (African American) 67.8 ml/min; Est GFR (Non-African American) 58.5 ml/min; Potassium 4.6 mmol/L (3.5-5.1)
[2021-05-14] MEDS: MIRTAZAPINE TAB 15 MG TAB PO SCH (19:56)
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
[2021-05-14] MEDS ORDERED: FUROSEMIDE INJ 20 MG/2 ML VIAL IV ONE (20:27)
[2021-05-15] MEDS: LEVOTHYROXINE SODIUM 75 MCG TABLET PO SCH (06:13)
[2021-05-15 09:11] LABS: BUN Creatinine Ratio 25.4 (10-20); Calcium 9.2 mg/dl (8.5-10.1); Creatinine Clr Calc Pharmacy 58.8 ml/min; Est GFR (African American) 59.6 ml/min; Est GFR (Non-African American) 51.4 ml/min; Potassium 4.7 mmol/L (3.5-5.1)
[2021-05-15] MEDS: CYANOCOBALAMIN (B-12) 500 MCG TABLET PO SCH (09:23)
[2021-05-15] MEDS: GABAPENTIN 100 MG CAP PO SCH ×2 (09:23→15:00)
[2021-05-15] MEDS: FUROSEMIDE 40 MG TAB PO SCH (09:26)
[2021-05-15] MEDS: ATORVASTATIN 40 MG TAB PO SCH (09:27)
[2021-05-15] MEDS: FINASTERIDE 5 MG TAB PO SCH (09:27)
[2021-05-15] MEDS: TAMSULOSIN HCL 0.4 MG CAP PO SCH (09:27)
[2021-05-15] MEDS: DIVALPROEX EXTENDED RELEASE 500 MG TAB PO SCH (09:27)
[2021-05-15] MEDS: CHOLECALCIFEROL 1,000 UNITS 25 MCG TAB PO SCH (09:27)
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
== END 2021-05-15 16:49 | disposition home health service (06) | DRG 189 ==
LOC: ED 13:53 → SUATTDRO 16:37 → 2S 19:38 → SUATTDRO 19:38 → 2S 20:41